=== PATIENT | female | born 1930 | race Two or more races ===

== ENCOUNTER 2017-03-05 18:10 | Inpatient (IN) | payer OTHER ==
--- NOTE | 2017-03-05 18:45 | PDOC ---
History of Present Illness - General Chief Complaint: Altered Mental Status Stated Complaint: UNRESPONSIVE Time Seen by Provider: 03/05/17 18:26 History Source: [facility] Records Exam Limitations: Dementia - History of Present Illness Initial Comments: 03/05/17 18:46 Patient is an 86F with history of Alzheimer's, seizures, TIA, unspecified psychosis, ischemic heart disease, and blepharitis here today complaining of being found unresponsive. Pulse was 58, satting 100%, temp 96.5, glucose 187. Patient is unable to give history. Unsure of baseline. Patient fights putting on blood pressure cuff and refuses to open eyes. Generally uncooperative. Past History - Past Medical History Allergies/Adverse Reactions: Allergies Allergy/AdvReac Type Severity Reaction Status Date / Time No Known Allergies Allergy Verified 03/05/17 18:45 Home Medications: Ambulatory Orders Aa/Hydrolyzed Collagen, Whey [Lps Neutral Flavor Liquid] 30 ml TP TID 03/05/17 Acetaminophen [Tylenol] 650 mg PO QID PRN 03/05/17 Cholecalciferol (Vitamin D3) [Vitamin D3] 1,000 units PO DAILY 03/05/17 Clopidogrel Bisulfate [Plavix] 75 mg PO DAILY 03/05/17 Docusate Sodium [Colace] 200 mg PO HS 03/05/17 Donepezil HCl [Aricept] 10 mg PO HS 03/05/17 Levetiracetam [Keppra Xr -] 500 mg PO BID 03/05/17 Menthol/Zinc Oxide [Calmoseptine Ointment Packet] 1 pack TP TID PRN 03/05/17 Multivitamins [Multivit ([facility] Formulary)] 1 tab PO DAILY 03/05/17 Quetiapine Fumarate [Seroquel -] 12.5 mg PO BID 03/05/17 Review of Systems - Review of Systems Able to Perform ROS?: No (2/2 dementia) *Physical Exam - Physical Exam Comments: 03/05/17 18:54 GENERAL: Awake, alert, uncooperative HEAD: No signs of trauma, normocephalic, atraumatic EYES: PERRLA, EOMI, sclera anicteric, ointment applied to eyes ENT: Auricles normal inspection, hearing grossly normal, nares patent, oropharynx clear without exudates. Chapped lips. Moist mucosa LUNGS: No distress, speaks full sentences, clear to auscultation bilaterally HEART: Regular rate and rhythm, normal S1 and S2, no murmurs, rubs or gallops, peripheral pulses normal and equal bilaterally. ABDOMEN: Soft, nontender, normoactive bowel sounds. No guarding, no rebound. No masses EXTREMITIES: Normal inspection, Normal range of motion, no edema. No clubbing or cyanosis. BACK: Well healed ulcers on sacrum. NEUROLOGICAL: Cranial nerves II through XII grossly intact. Moving all extremities. SKIN: Warm, Dry, normal turgor, no rashes or lesions noted. ED Treatment Course - LABORATORY CBC & Chemistry Diagram: 03/05/17 20:05 03/05/17 20:05 - RADIOLOGY Radiology Studies Ordered: Category Date Time Status HEAD CT WITHOUT CONTRAST [CT] Stat CT Scan 03/05/17 18:38 Ordered CHEST X-RAY PORTABLE* [RAD] Stat Radiology 03/05/17 18:37 Ordered Medical Decision Making - Medical Decision Making 03/05/17 18:56 Patient is an 86F with history of Alzheimer's, seizures, TIA, unspecified psychosis, ischemic heart disease, and blepharitis here today with altered mental status. Vital signs stable and normal, rectal temp normal. DDx is broad, and includes: pneumonia, uti, psychiatric disorders, dehydration, delirium. Will treat with 1L fluids. Will evaluate with cbc, cmp, trop, cxr, ekg, ct head , ua, uc. 03/05/17 20:54 Laboratory Tests 03/05/17 03/05/17 03/05/17 19:21 20:05 20:05 WBC 5.7 Hgb 12.7 Hct 38.9 Neutrophils % 80.1 BUN 17 Creatinine 0.8 Urine WBC (Auto) 154 UA positive for UTI. Kidney function normal. CBC normal. CMP normal. CXR shows no acute cardiopulmonary process. Will treat with ceftriaxone and admit. 03/05/17 21:11 CT head shows 4.4x4x3.7cm left frontoparietal convexity with bone erosion concerning for metastatic disease vs meningioma. Also shows 1cm nonexpansile nonspecific focus. 03/05/17 21:27 EKG shows sinus bradycardia, rate 58. No ST elevation/depression. Normal intervals. No t-wave abnormalities. 03/05/17 22:59 [employer] Emily accepted admission. Will admit to Med/surg under Jimmy *DC/Admit/Observation/Transfer Diagnosis at time of Disposition: UTI (urinary tract infection), Brain mass - Discharge Dispostion Condition at time of disposition: Stable Admit: Yes - Referrals - Patient Instructions - Post Discharge Activity
[2017-03-05 18:48] VITALS: BMI 22.1
--- NOTE | 2017-03-05 19:37 | PDOC ---
Attending Attestation - Resident Resident Name: Adithya Gracia - ED Attending Attestation I have performed the following: I have examined & evaluated the patient, The case was reviewed & discussed with the resident, I agree w/resident's findings & plan, Exceptions are as noted - HPI HPI: 03/05/17 19:24 86 yo female [facility] being "[facility]" Pt is alert, moving all extremities, stable VS Thin ,frail appearing female who is refusing to open her eyes to command . When you go to try to open her eyes she squeezes them shut neck no bruits lungs no crackles,no wheezing cvr [id number] abd flat,nontender extremities - cool legs skin no vesicles - Physicial Exam PE: 03/06/17 00:00 please see above - Medical Decision Making 03/06/17 00:00 ct scan revealed an aggressive meningioma vs mets. Pt has no known h/o cancer according to [facility] notes and family pt found to have UTI and admitted to hospitalist
[2017-03-05 19:38] LABS: URINE APPEARANCE CLOUDY; URINE BILIRUBIN NEGATIVE (NEGATIVE); URINE BLOOD NEGATIVE (NEGATIVE); URINE COLOR YELLOW; URINE GLUCOSE (UA) NEGATIVE (NEGATIVE); URINE KETONE NEGATIVE (NEGATIVE); URINE LEUK ESTERASE 3+ (NEGATIVE); URINE NITRITE NEGATIVE (NEGATIVE); URINE PROTEIN 1+ (NEGATIVE)
[2017-03-05 19:58] LABS: EPI CELLS RARE /HPF (FEW); GRANULAR CASTS 42 /lpf; URINE BACTERIA RARE /hpf (NONE SEEN); URINE MUCUS RARE
[2017-03-05 20:21] LABS: EOS % 0.4 % (0-4.5); HEMATOCRIT 38.9 % (32.4-45.2); HEMOGLOBIN 12.7 GM/dL (10.7-15.3); LYMPH % 11.6 % (8-40); MCH 32.6 pg (25.7-33.7); MCHC 32.6 g/dl (32.0-36.0); MEAN CELL VOLUME 100.2 fl (80-96); MEAN PLT VOLUME 7.9 fl (7.5-11.1); MONO % 6.9 % (3.8-10.2); NEUT % 80.1 % (42.8-82.8); PLATELET COUNT 304 K/MM3 (134-434); RBC 3.89 M/mm3 (3.60-5.2); RDW 12.8 % (11.6-15.6); WHITE BLOOD COUNT 5.7 K/mm3 (4.0-10.0)
[2017-03-05 20:42] LABS: ALBUMIN 2.4 g/dl (3.4-5.0); ANION GAP 7 (8-16); BILIRUBIN,TOTAL 0.3 mg/dL (0.2-1.0); BLOOD UREA NITROGEN 17 mg/dL (7-18); CALCIUM 9.3 mg/dL (8.5-10.1); CHLORIDE 105 mmol/L (98-107); CO2 30 mmol/L (21-32); CREATININE 0.8 mg/dL (0.55-1.02); GLUCOSE,RANDOM 156 mg/dL (74-106); POTASSIUM 4.6 mmol/L (3.5-5.1); SGOT/AST 12 U/L (15-37); SGPT/ALT 12 U/L (12-78); SODIUM 142 mmol/L (136-145); TOT PROT 7.6 g/dl (6.4-8.2)
[2017-03-05 20:44] LABS: ALK PHOS 153 U/L (45-117)
[2017-03-05 21:09] LABS: INR 1.22 (0.82-1.09); PROTHROMBIN TIME (PATIENT) 13.8 SEC (9.98-11.88)
[2017-03-05] MEDS ORDERED: CEFTRIAXONE 1 GM in DEXTROSE 5%-WATER - 50 ML IVPB ONE (21:28)
[2017-03-05] MEDS ORDERED: CEFTRIAXONE 1 GM/50 ML BAG ONE (21:44)
--- NOTE | 2017-03-06 02:30 | HP ---
CHIEF COMPLAINT: AMS PCP: Jim MCCULLOUGH HISTORY OF PRESENT ILLNESS: This is an 86 year old female with a past medical history of alzheimer's Dementia with psychosis, TIA, ischemic heart disease who was sent from the [facility] with AMS/unresponsive. As per ED resident, family describes a baseline mental status similar to what she is currently presenting at. Family not present at time of exam and information obtained from chart review as pt is currently nonverbal. ER course was notable for: (1) U/A c/w UTI (2) WBC 5.7 (3) CT head significant for 4. 4 x 4 x 3.7 cm left frontoparietal mass with erosion of parietal bone Recent Travel: unknown, but doubtful as pt is [facility] resident PAST MEDICAL HISTORY: Alzheimer's dementia with psychosis TIA ischemic heart disease blepharitis PAST SURGICAL HISTORY: unk Social History: Smoking: unk Alcohol:unk Drugs: unk Family History: unk Allergies No Known Allergies Allergy (Verified 03/05/17 18:45) HOME MEDICATIONS: 3 Medication Instructions Recorded Aa/Hydrolyzed Collagen, Whey [Lps 30 ml TP TID 03/05/17 Neutral Flavor Liquid] Acetaminophen [Tylenol] 650 mg PO QID PRN 03/05/17 Cholecalciferol (Vitamin D3) 1,000 units PO DAILY 03/05/17 [Vitamin D3] Clopidogrel Bisulfate [Plavix] 75 mg PO DAILY 03/05/17 Docusate Sodium [Colace] 200 mg PO HS 03/05/17 Donepezil HCl [Aricept] 10 mg PO HS 03/05/17 Levetiracetam [Keppra Xr -] 500 mg PO BID 03/05/17 Menthol/Zinc Oxide [Calmoseptine 1 pack TP TID PRN 03/05/17 Ointment Packet] Multivitamins [Multivit ([facility] 1 tab PO DAILY 03/05/17 Formulary)] Quetiapine Fumarate [Seroquel -] 12.5 mg PO BID 03/05/17 REVIEW OF SYSTEMS CONSTITUTIONAL: Absent: fever, chills, diaphoresis, generalized weakness, malaise, loss of appetite, weight change HEENT: Absent: rhinorrhea, nasal congestion, throat pain, throat swelling, difficulty swallowing, mouth swelling, ear pain, eye pain, visual changes CARDIOVASCULAR: Absent: chest pain, syncope, palpitations, irregular heart rate, lightheadedness , peripheral edema RESPIRATORY: Absent: cough, shortness of breath, dyspnea with exertion, orthopnea, wheezing, stridor, hemoptysis GASTROINTESTINAL: Absent: abdominal pain, abdominal distension, nausea, vomiting, diarrhea, constipation, melena, hematochezia GENITOURINARY: Absent: dysuria, frequency, urgency, hesitancy, hematuria, flank pain, genital pain MUSCULOSKELETAL: Absent: myalgia, arthralgia, joint swelling, back pain, neck pain SKIN: Absent: rash, itching, pallor HEMATOLOGIC/IMMUNOLOGIC: Absent: easy bleeding, easy bruising, lymphadenopathy, frequent infections ENDOCRINE: Absent: unexplained weight gain, unexplained weight loss, heat intolerance, cold intolerance NEUROLOGIC: Present: mental status changes Absent: headache, focal weakness or paresthesias, dizziness, unsteady gait, seizure, bladder or bowel incontinence PSYCHIATRIC: Absent: anxiety, depression, suicidal or homicidal ideation, hallucinations. PHYSICAL EXAMINATION Vital Signs - 24 hr 3 03/05/17 03/05/17 03/05/17 03/05/17 18:31 21:07 22:18 23:00 Temperature 98.3 F 97.8 F Pulse Rate 74 72 Pulse Rate [ 68 62 Apical] Respiratory 17 20 22 20 Rate Blood Pressure 106/56 106/58 Blood Pressure 135/56 118/75 [Right Arm] O2 Sat by Pulse 95 96 100 Oximetry (%) GENERAL: Awake, alert, and disoriented, in no acute distress. Nonverbal. follows with her eyes HEAD: Normal with no signs of trauma. EYES: Pupils equal, round and reactive to light, extraocular movements intact, sclera anicteric, conjunctiva clear. No lid lag. EARS, NOSE, THROAT: Ears normal, nares patent, oropharynx clear without exudates. Moist mucous membranes. NECK: Normal range of motion, supple without lymphadenopathy, JVD, or masses. LUNGS: Breath sounds equal, clear to auscultation bilaterally. No wheezes, and no crackles. No accessory muscle use. HEART: Regular rate and rhythm, normal S1 and S2 without murmur, rub or gallop. ABDOMEN: Soft, nontender, not distended, normoactive bowel sounds, no guarding, no rebound, no masses. No hepatomegaly or splenomegaly. MUSCULOSKELETAL: Normal range of motion at all joints. No bony deformities or tenderness. No CVA tenderness. UPPER EXTREMITIES: 2+ pulses, warm, well-perfused. No cyanosis. No clubbing. No peripheral edema. LOWER EXTREMITIES: 2+ pulses, warm, well-perfused. No calf tenderness. No peripheral edema. NEUROLOGICAL: Cranial nerves II-XII intact. Normal speech. Normal gait. PSYCHIATRIC: Cooperative. Good eye contact. Appropriate mood and affect. SKIN: Warm, dry, normal turgor, no rashes or lesions noted, normal capillary refill. Laboratory Results - last 24 hr 3 03/05/17 03/05/17 03/05/17 19:21 20:05 20:05 WBC 5.7 RBC 3.89 Hgb 12.7 Hct 38.9 MCV 100.2 H MCH 32.6 MCHC 32.6 RDW 12.8 Plt Count 304 MPV 7.9 Neutrophils % 80.1 Lymphocytes % 11.6 Monocytes % 6.9 Eosinophils % 0.4 Basophils % 1.0 PT with INR 13.80 H INR 1.22 H Sodium Potassium Chloride Carbon Dioxide Anion Gap BUN Creatinine Creat Clearance w eGFR Random Glucose Calcium Total Bilirubin AST ALT Alkaline Phosphatase Creatine Kinase Troponin I Total Protein Albumin Urine Color Yellow Urine Appearance Cloudy Urine pH 6.0 Ur Specific [place] 1.016 Urine Protein 1+ H Urine Glucose (UA) Negative Urine Ketones Negative Urine Blood Negative Urine Nitrite Negative Urine Bilirubin Negative Urine Urobilinogen 2.0 H Ur Leukocyte Esterase 1+ H Urine WBC (Auto) 154 Urine RBC (Auto) 8 Ur Epithelial Cells Rare Urine Bacteria Rare Granular Casts 42 Urine Mucus Rare 3 03/05/17 20:05 WBC RBC Hgb Hct MCV MCH MCHC RDW Plt Count MPV Neutrophils % Lymphocytes % Monocytes % Eosinophils % Basophils % PT with INR INR Sodium 142 Potassium 4.6 Chloride 105 Carbon Dioxide 30 Anion Gap 7 L BUN 17 Creatinine 0.8 Creat Clearance w eGFR > 60 Random Glucose 156 H Calcium 9.3 Total Bilirubin 0.3 AST 12 L ALT 12 Alkaline Phosphatase 153 H Creatine Kinase 34 Troponin I 0.04 Total Protein 7.6 Albumin 2.4 L Urine Color Urine Appearance Urine pH Ur Specific [place] Urine Protein Urine Glucose (UA) Urine Ketones Urine Blood Urine Nitrite Urine Bilirubin Urine Urobilinogen Ur Leukocyte Esterase Urine WBC (Auto) Urine RBC (Auto) Ur Epithelial Cells Urine Bacteria Granular Casts Urine Mucus ECG sinus bradycardia vent rate58, QTC [address]/T wave changes Radiology Reports: CRANIAL CT without contrast Clinical information: neuro / altered mental status / headache The exam consists of contiguous direct transaxial images as well as reformatted sagittal and coronal imaging. Intravenous contrast was not administered. No prior imaging studies are available at this facility for direct comparison. An approximately 4. 4 x 4 x 3.7 cm left frontoparietal convexity moderately hyperdense extra-axial mass lesion is noted. There is associated complete erosion of the inner table and diploic cavity of the left parietal calvarium with partial erosion of the outer table. A small amount of associated subgaleal neoplastic disease is seen extending through the calvarium. The intracranial portion of the lesion demonstrate several small peripheral calcifications. No definite perilesional edema is identified. Mild partial effacement of the trigone and body of the left lateral ventricle is seen. There is minimal contralateral midline displacement. A nonspecific 1 cm low attenuation intradiploic nonexpansile focus is seen within the right parietal convexity. No extra-axial fluid collection is noted. There is no discrete infarct within the limitations of CT. No intracranial hemorrhage is identified. Mild to moderate periventricular microvascular ischemic gliosis is seen. No obstructive hydrocephalus. There is almost complete opacification of the right maxillary and left sphenoid sinuses consistent with chronic sinusitis. Associated right maxillary wall thickening is noted also due to chronic inflammation. There is to moderate right ethmoid and mild left maxillary sinus mucosal thickening is seen consistent with sinusitis which is probably chronic. Correlate clinically in regards to acuity. IMPRESSION: An approximately 4. 4 x 4 x 3.7 cm left frontoparietal dural based mass lesion is identified with associated calvarial erosion as discussed above. 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 A 1 cm nonexpansile nonspecific focus is seen within the right parietal calvarium laterally at the high convexity level. Additional evaluation utilizing whole-body radionuclide bone scan including SPECT may be considered. Alternatively comparison with previous studies may be performed if available from a different facility. Paranasal sinus disease as discussed above. Reported By: Jordan Hudson MD 03/05/172057 CXR with no obvious infiltrates or effusions, final read pending ASSESSMENT/PLAN: 86yF with PMH alzheimer's Dementia with psychosis, TIA, ischemic heart disease who was sent from the [place] with A[place]/unresponsive. Intracranial mass - findings will need to be discussed with family to determine desire for further workup - if family desires workup, would obtain MRI head, CT chest abd and pelvis with IV contrast - neuro consult dementia with psychosis - cont aricept and seroquel ? seizures - cont keppra CAD/TIA - cont plavix DVT PPX - heparin 5000u BID FEN - appears well hydrated, cont po hydration - BMP in am - cont NH recommendation for puree diet with thin liquids Dispo: Pt currently requires inpatient management of her emergent condition. Visit type - Emergency Visit Emergency Visit: Yes ED Registration Date: 03/05/17 Care time: The patient presented to the Emergency Department on the above date and was hospitalized for further evaluation of their emergent condition. - New Patient This patient is new to me today: Yes Date on this admission: 03/06/17 - Critical Care Critical Care patient: No
[2017-03-06] MEDS ORDERED: PATIENT'S OWN MEDICATION (NON-FORMULARY) (Aa/Hydrolyzed Collagen, Whey [Lps Neutral Flavor TP SCH (06:00)
--- NOTE | 2017-03-06 09:09 | EKG ---
Test Reason : Blood Pressure : / mmHG Vent. Rate : 063 BPM Atrial Rate : 063 BPM P-R Int : 142 ms QRS Dur : 072 ms QT Int : 416 ms P-R-T Axes : 074 050 068 degrees QTc Int : 425 ms POOR DATA QUALITY, INTERPRETATION MAY BE ADVERSELY AFFECTED SINUS RHYTHM WITH PREMATURE SUPRAVENTRICULAR COMPLEXES OTHERWISE NORMAL ECG NO PREVIOUS ECGS AVAILABLE Confirmed by MD Natty, Praful ([id number]) on 03/06/2017 9:09:15 AM Referred By: Confirmed By:Praful Luz MD
[2017-03-06] MEDS ORDERED: PT OWN MED DRAWER 7, Y5N ONE (09:43)
[2017-03-06] MEDS: HEPARIN NA (PORCINE) 5,000 UNITS/ML 1ML VIAL SQ SCH ×2 (09:44→22:38)
[2017-03-06] MEDS: CLOPIDOGREL BISULFATE 75 MG TABLET (FP) PO SCH (09:45)
[2017-03-06] MEDS: CHOLECALCIFEROL (VITAMIN D3) 1,000 UNIT TABLET (FP) PO SCH (09:46)
[2017-03-06] MEDS: MULTIVITAMINS (DAILY MVI) TABLET (FP) PO SCH (09:46)
[2017-03-06] MEDS: QUEtiapine FUMARATE 25 MG TABLET (FP) PO SCH ×2 (09:46→22:37)
[2017-03-06] MEDS ORDERED: levETIRAcetam XR 500 MG TAB PO SCH ×2 (10:00→18:09)
--- NOTE | 2017-03-06 12:35 | PN ---
Progress Note, Physician Chief Complaint: Unable to obtain - Current Medication List Current Medications: Active Medications Acetaminophen (Tylenol -) 650 mg PO Q6H PRN PRN Reason: PAIN Cholecalciferol (Vitamin D3 -) 1,000 unit PO DAILY [facility] Last Admin: 03/06/17 09:46 Dose: 1,000 unit Clopidogrel Bisulfate (Plavix -) 75 mg PO DAILY [facility] Last Admin: 03/06/17 09:45 Dose: 75 mg Docusate Sodium (Colace -) 200 mg PO HS [facility] Donepezil HCl (Aricept -) 10 mg PO HS [facility] Heparin Sodium (Porcine) (Heparin -) 5,000 unit SQ BID [facility] Last Admin: 03/06/17 09:44 Dose: 5,000 unit CEFTRIAXONE 1 G/50 ML PREMIX (Ceftriaxone 1 Gm-D5w Bag) 50 mls @ 100 mls/hr IVPB HS [facility] Levetiracetam (Keppra Xr -) 500 mg PO BID [facility] Last Admin: 03/06/17 09:45 Dose: 500 mg Multivitamins/Minerals/Vitamin C (Tab-A-Vit -) 1 tab PO DAILY [facility] Last Admin: 03/06/17 09:46 Dose: 1 tab Quetiapine Fumarate (Seroquel -) 12.5 mg PO BID [facility] Last Admin: 03/06/17 09:46 Dose: 12.5 mg - Objective Vital Signs: Vital Signs Temperature 36.8 C 03/06/17 09:36 Pulse Rate 54 L 03/06/17 09:36 Respiratory Rate 16 03/06/17 09:36 Blood Pressure 125/50 03/06/17 09:36 O2 Sat by Pulse Oximetry (%) 100 03/06/17 00:21 Constitutional: Yes: Well Nourished, No Distress, Other (lethargic) Cardiovascular: Yes: Regular Rate and Rhythm. No: Gallop, Murmur, Rub Respiratory: Yes: Regular, CTA Bilaterally. No: Rales, Rhonchi, Wheezes Gastrointestinal: Yes: Normal Bowel Sounds, Soft. No: Distention, Tenderness Extremities: Yes: WNL Edema: No Labs: CBC, BMP 03/05/17 20:05 03/05/17 20:05 INR, PTT INR 1.22 (0.82-1.09) H 03/05/17 20:05 Problem List - Problems (1) Acute metabolic encephalopathy Assessment/Plan: -patient with AMS -multifactorial, suspect immediate cause is UTI -treat UTI with antibiotics -also found to have brain mass -added dexamethasone and neurology consult -monitor for improvement Code(s): G93.41 - METABOLIC ENCEPHALOPATHY (2) Brain mass Assessment/Plan: -incidentally found on head CT -quite large on CT scan -admitted -will start dexamethasone for possible edema -neurology consult -multiple calls placed to son to discuss goals of care, goes to voicemail -will continue to attempt -conservative measures currently until son contacted Code(s): G93.9 - DISORDER OF BRAIN, UNSPECIFIED (3) UTI (urinary tract infection) Assessment/Plan: -urinalysis positive for UTI -on rocephin -follow up cultures Code(s): N39.0 - URINARY TRACT INFECTION, SITE NOT SPECIFIED (4) Dementia Assessment/Plan: -continue home regimen -clarify baseline with family Code(s): F03.90 - UNSPECIFIED DEMENTIA WITHOUT BEHAVIORAL DISTURBANCE (5) History of seizure Assessment/Plan: -continue keppra -neurology consult, may need increase considering tumor Code(s): Z87.898 - PERSONAL HISTORY OF OTHER SPECIFIED CONDITIONS
[2017-03-06] MEDS: DEXAMETHASONE SOD PHOSPHATE 4 MG/1 ML VIAL IVPUSH SCH ×2 (17:39→21:00)
--- NOTE | 2017-03-06 17:57 | CONSULT ---
Consult - text type - Consultation Consultation Note: Neurology HISTORY OF PRESENT ILLNESS: This is an 86 year old female with a past medical history of alzheimer's Dementia with psychosis, TIA, ischemic heart disease who was sent from the [place] with AMS/unresponsive. CT head completed and was impressive for 4. 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 Patient also admitted for UTI and on Keppra for seizures, 500mg twice daily. No seizure like activity for this admission. Of note, UA found to be positive and patient started on Abx. 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 Unclear how much of this would be due to tumor vs cognitive impairment from dementia. PAST MEDICAL HISTORY: Alzheimer's dementia with psychosis TIA ischemic heart disease blepharitis Allergies No Known Allergies Allergy Active Medications Acetaminophen (Tylenol -) 650 mg PO Q6H PRN PRN Reason: PAIN Cholecalciferol (Vitamin D3 -) 1,000 unit PO DAILY [facility] Last Admin: 03/06/17 09:46 Dose: 1,000 unit Clopidogrel Bisulfate (Plavix -) 75 mg PO DAILY [facility] Last Admin: 03/06/17 09:45 Dose: 75 mg Dexamethasone Sodium Phosphate (Decadron Injection -) 4 mg IVPUSH Q6H-IV [facility] Last Admin: 03/06/17 17:39 Dose: 4 mg Docusate Sodium (Colace -) 200 mg PO HS [facility] Donepezil HCl (Aricept -) 10 mg PO HS [facility] Heparin Sodium (Porcine) (Heparin -) 5,000 unit SQ BID [facility] Last Admin: 03/06/17 09:44 Dose: 5,000 unit CEFTRIAXONE 1 G/50 ML PREMIX (Ceftriaxone 1 Gm-D5w Bag) 50 mls @ 100 mls/hr IVPB HS [facility] Levetiracetam (Keppra Xr -) 500 mg PO BID [facility] Last Admin: 03/06/17 09:45 Dose: 500 mg Multivitamins/Minerals/Vitamin C (Tab-A-Vit -) 1 tab PO DAILY [facility] Last Admin: 03/06/17 09:46 Dose: 1 tab Quetiapine Fumarate (Seroquel -) 12.5 mg PO BID [facility] Last Admin: 03/06/17 09:46 Dose: 12.5 mg REVIEW OF SYSTEMS CONSTITUTIONAL: Absent: fever, chills, diaphoresis, generalized weakness, malaise, loss of appetite, weight change HEENT: Absent: rhinorrhea, nasal congestion, throat pain, throat swelling, difficulty swallowing, mouth swelling, ear pain, eye pain, visual changes CARDIOVASCULAR: Absent: chest pain, syncope, palpitations, irregular heart rate, lightheadedness , peripheral edema RESPIRATORY: Absent: cough, shortness of breath, dyspnea with exertion, orthopnea, wheezing, stridor, hemoptysis GASTROINTESTINAL: Absent: abdominal pain, abdominal distension, nausea, vomiting, diarrhea, constipation, melena, hematochezia GENITOURINARY: Absent: dysuria, frequency, urgency, hesitancy, hematuria, flank pain, genital pain MUSCULOSKELETAL: Absent: myalgia, arthralgia, joint swelling, back pain, neck pain SKIN: Absent: rash, itching, pallor HEMATOLOGIC/IMMUNOLOGIC: Absent: easy bleeding, easy bruising, lymphadenopathy, frequent infections ENDOCRINE: Absent: unexplained weight gain, unexplained weight loss, heat intolerance, cold intolerance NEUROLOGIC: Present: mental status changes Absent: headache, focal weakness or paresthesias, dizziness, unsteady gait, seizure, bladder or bowel incontinence PSYCHIATRIC: Absent: anxiety, depression, suicidal or homicidal ideation, hallucinations. PHYSICAL EXAMINATION Last Vital Signs Temp Pulse Resp BP Pulse Ox 98.3 F 89 20 155/77 100 03/06/17 17:09 03/06/17 17:03/06/17 17:03/06/17 17:03/06/17 00:21 GENERAL: Awake, alert, and disoriented, in no acute distress. follows with her eyes HEAD: Normal with no signs of trauma. EYES: Pupils equal, round and reactive to light, extraocular movements intact, sclera anicteric, conjunctiva clear. No lid lag. EARS, NOSE, THROAT: Ears normal, nares patent, oropharynx clear without exudates. Moist mucous membranes. NECK: Normal range of motion, supple without lymphadenopathy, JVD, or masses. LUNGS: Breath sounds equal, clear to auscultation bilaterally. No wheezes, and no crackles. No accessory muscle use. HEART: Regular rate and rhythm, normal S1 and S2 without murmur, rub or gallop. ABDOMEN: Soft, nontender, not distended, normoactive bowel sounds, no guarding, no rebound, no masses. No hepatomegaly or splenomegaly. MUSCULOSKELETAL: Normal range of motion at all joints. No bony deformities or tenderness. No CVA tenderness. UPPER EXTREMITIES: 2+ pulses, warm, well-perfused. No cyanosis. No clubbing. No peripheral edema. LOWER EXTREMITIES: 2+ pulses, warm, well-perfused. No calf tenderness. No peripheral edema. NEUROLOGICAL: Cranial nerves intact, grossly moving ext, not cooperative in confrontation, sensory intact PSYCHIATRIC: Cooperative. Good eye contact. Appropriate mood and affect. SKIN: Warm, dry, normal turgor, no rashes or lesions noted, normal capillary refill. CBCD WBC 5.7 K/mm3 (4.0-10.0) 03/05/17 20:05 RBC 3.89 M/mm3 (3.60-5.2) 03/05/17 20:05 Hgb 12.7 GM/dL (10.7-15.3) 03/05/17 20:05 Hct 38.9 % (32.4-45.2) 03/05/17 20:05 MCV 100.2 fl (80-96) H 03/05/17 20:05 MCHC 32.6 g/dl (32.0-36.0) 03/05/17 20:05 RDW 12.8 % (11.6-15.6) 03/05/17 20:05 Plt Count 304 K/MM3 (134-434) 03/05/17 20:05 MPV 7.9 fl (7.5-11.1) 03/05/17 20:05 CMP Sodium 142 mmol/L (136-145) 03/05/17 20:05 Potassium 4.6 mmol/L (3.5-5.1) 03/05/17 20:05 Chloride 105 mmol/L (98-107) 03/05/17 20:05 Carbon Dioxide 30 mmol/L (21-32) 03/05/17 20:05 Anion Gap 7 (8-16) L 03/05/17 20:05 BUN 17 mg/dL (7-18) 03/05/17 20:05 Creatinine 0.8 mg/dL (0.55-1.02) 03/05/17 20:05 Creat Clearance w eGFR > 60 (>60) 03/05/17 20:05 Calcium 9.3 mg/dL (8.5-10.1) 03/05/17 20:05 Total Bilirubin 0.3 mg/dL (0.2-1.0) 03/05/17 20:05 AST 12 U/L (15-37) L 03/05/17 20:05 ALT 12 U/L (12-78) 03/05/17 20:05 Alkaline Phosphatase 153 U/L (45-117) H 03/05/17 20:05 Total Protein 7.6 g/dl (6.4-8.2) 03/05/17 20:05 Albumin 2.4 g/dl (3.4-5.0) L 03/05/17 20:05 Radiology Reports: CT head: IMPRESSION: An approximately 4. 4 x 4 x 3.7 cm left frontoparietal dural based mass lesion is identified with associated calvarial erosion as discussed above. 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 A 1 cm nonexpansile nonspecific focus is seen within the right parietal calvarium laterally at the high convexity level. Additional evaluation utilizing whole-body radionuclide bone scan including SPECT may be considered. Alternatively comparison with previous studies may be performed if available from a different facility. Paranasal sinus disease as discussed above. ASSESSMENT/PLAN: 86 year old female with a past medical history of alzheimer's Dementia with psychosis, TIA, ischemic heart disease who was sent from the [place] with AMS/ unresponsive. CT head completed and was impressive for 4. 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 Patient also admitted for UTI and on Keppra for seizures, 500mg twice daily. No seizure like activity for this admission. Depending on goals of care, next step would be to have MRI brain with contrast. However, given age and current level of functionality, unclear that benefit would outweigh risk if surgical intervention were to be considered. Family would need to decide on they would want to pursue possible surgical intervention, will hold off on ordering MRI brain with contrast for now. Will increase Keppra to 750mg twice daily to provide further seizure protection. Agree with Decadron for now. Can continue seroquel and Aricept. Acute mental status deterioration possible more due to UTI which is being treated with Ceftriaxone.
[2017-03-06] MEDS: DONEPEZIL HCL 10 MG TABLET (FP) PO SCH (22:37)
[2017-03-06] MEDS: CEFTRIAXONE 1 G/50 ML PREMIX 50 ML IVPB SCH (22:39)
[2017-03-06] MEDS: DOCUSATE SODIUM 100 MG CAPSULE (FP) PO SCH (22:39)
[2017-03-07] MEDS: DEXAMETHASONE SOD PHOSPHATE 4 MG/1 ML VIAL IVPUSH SCH ×4 (02:51→21:38)
[2017-03-07 07:46] LABS: BASO % 0.3 % (0-2.0); HEMOGLOBIN 11.6 GM/dL (10.7-15.3); LYMPH % 13.8 % (8-40); MCH 32.1 pg (25.7-33.7); MCHC 32.1 g/dl (32.0-36.0); MEAN CELL VOLUME 99.9 fl (80-96); MONO % 0.7 % (3.8-10.2); NEUT % 85.2 % (42.8-82.8); PLATELET COUNT 244 K/MM3 (134-434); RDW 12.6 % (11.6-15.6); WHITE BLOOD COUNT 2.8 K/mm3 (4.0-10.0)
[2017-03-07 08:05] LABS: ANION GAP 6 (8-16); BLOOD UREA NITROGEN 15 mg/dL (7-18); CALCIUM 9.1 mg/dL (8.5-10.1); CHLORIDE 106 mmol/L (98-107); CO2 29 mmol/L (21-32); GLUCOSE,RANDOM 168 mg/dL (74-106); MAGNESIUM 2.1 mg/dL (1.8-2.4); POTASSIUM 4.3 mmol/L (3.5-5.1); SODIUM 141 mmol/L (136-145)
[2017-03-07 08:06] LABS: CREATININE 0.5 mg/dL (0.55-1.02); PHOSPHOROUS 3.4 mg/dL (2.5-4.9)
[2017-03-07] MEDS ORDERED: PT OWN MED DRAWER 7, Y5N ONE (09:25)
[2017-03-07] MEDS: QUEtiapine FUMARATE 25 MG TABLET (FP) PO SCH ×2 (09:26→21:39)
[2017-03-07] MEDS: HEPARIN NA (PORCINE) 5,000 UNITS/ML 1ML VIAL SQ SCH ×2 (09:26→21:40)
[2017-03-07] MEDS: CHOLECALCIFEROL (VITAMIN D3) 1,000 UNIT TABLET (FP) PO SCH (09:26)
[2017-03-07] MEDS: CLOPIDOGREL BISULFATE 75 MG TABLET (FP) PO SCH (09:26)
[2017-03-07] MEDS: MULTIVITAMINS (DAILY MVI) TABLET (FP) PO SCH (09:26)
--- NOTE | 2017-03-07 09:37 | PN ---
Progress Note (short form) - Note Progress Note: Neurology HISTORY OF PRESENT ILLNESS: This is an 86 year old female with a past medical history of alzheimer's Dementia with psychosis, TIA, ischemic heart disease who was sent from the [place] with AMS/unresponsive. CT head completed and was impressive for 4. 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 Patient also admitted for UTI and on Keppra for seizures, 500mg twice daily. No seizure like activity for this admission. Of note, UA found to be positive and patient started on Abx. If meningioma, would not likely cause acute mental status change but likely can play a role over correction deterioration especially due to size. Unclear how much of this would be due to tumor vs cognitive impairment from dementia. No family at bedside this AM. Remains stable overnight. No new neurologic events. Being fed at bedside by aide. Active Medications Acetaminophen (Tylenol -) 650 mg PO Q6H PRN PRN Reason: PAIN Cholecalciferol (Vitamin D3 -) 1,000 unit PO DAILY [facility] Last Admin: 03/07/17 09:26 Dose: 1,000 unit Clopidogrel Bisulfate (Plavix -) 75 mg PO DAILY [facility] Last Admin: 03/07/17 09:26 Dose: 75 mg Dexamethasone Sodium Phosphate (Decadron Injection -) 4 mg IVPUSH Q6H-IV [facility] Last Admin: 03/07/17 09:26 Dose: 4 mg Docusate Sodium (Colace -) 200 mg PO HS [facility] Last Admin: 03/06/17 22:39 Dose: 200 mg Donepezil HCl (Aricept -) 10 mg PO HS [facility] Last Admin: 03/06/17 22:37 Dose: 10 mg Heparin Sodium (Porcine) (Heparin -) 5,000 unit SQ BID [facility] Last Admin: 03/07/17 09:26 Dose: 5,000 unit CEFTRIAXONE 1 G/50 ML PREMIX (Ceftriaxone 1 Gm-D5w Bag) 50 mls @ 100 mls/hr IVPB [facility] Last Admin: 03/06/17 22:39 Dose: 100 mls/hr Levetiracetam (Keppra Xr -) 750 mg PO BID [facility] Last Admin: 03/07/17 09:26 Dose: 750 mg Multivitamins/Minerals/Vitamin C (Tab-A-Vit -) 1 tab PO DAILY [facility] Last Admin: 03/07/17 09:26 Dose: 1 tab Quetiapine Fumarate (Seroquel -) 12.5 mg PO BID [facility] Last Admin: 03/07/17 09:26 Dose: 12.5 mg PHYSICAL EXAMINATION Vital Signs Period Temp Pulse Resp BP Sys/Tomlinson Pulse Ox Last 24 Hr 97.5 F-98.9 F 55-89 18-20 144-157/58-78 100 GENERAL: Awake, alert, and disoriented, in no acute distress. follows with her eyes HEAD: Normal with no signs of trauma. EYES: Pupils equal, round and reactive to light, extraocular movements intact, sclera anicteric, conjunctiva clear. No lid lag. EARS, NOSE, THROAT: Ears normal, nares patent, oropharynx clear without exudates. Moist mucous membranes. NECK: Normal range of motion, supple without lymphadenopathy, JVD, or masses. LUNGS: Breath sounds equal, clear to auscultation bilaterally. No wheezes, and no crackles. No accessory muscle use. HEART: Regular rate and rhythm, normal S1 and S2 without murmur, rub or gallop. ABDOMEN: Soft, nontender, not distended, normoactive bowel sounds, no guarding, no rebound, no masses. No hepatomegaly or splenomegaly. MUSCULOSKELETAL: Normal range of motion at all joints. No bony deformities or tenderness. No CVA tenderness. UPPER EXTREMITIES: 2+ pulses, warm, well-perfused. No cyanosis. No clubbing. No peripheral edema. LOWER EXTREMITIES: 2+ pulses, warm, well-perfused. No calf tenderness. No peripheral edema. NEUROLOGICAL: Cranial nerves intact, grossly moving ext, not cooperative in confrontation, sensory intact PSYCHIATRIC: Cooperative. Good eye contact. Appropriate mood and affect. SKIN: Warm, dry, normal turgor, no rashes or lesions noted, normal capillary refill. CBCD WBC 2.8 K/mm3 (4.0-10.0) L D 03/07/17 06:00 RBC 3.60 M/mm3 (3.60-5.2) 03/07/17 06:00 Hgb 11.6 GM/dL (10.7-15.3) 03/07/17 06:00 Hct 36.0 % (32.4-45.2) 03/07/17 06:00 MCV 99.9 fl (80-96) H 03/07/17 06:00 MCHC 32.1 g/dl (32.0-36.0) 03/07/17 06:00 RDW 12.6 % (11.6-15.6) 03/07/17 06:00 Plt Count 244 K/MM3 (134-434) 03/07/17 06:00 MPV 8.0 fl (7.5-11.1) 03/07/17 06:00 CMP Sodium 141 mmol/L (136-145) 03/07/17 06:00 Potassium 4.3 mmol/L (3.5-5.1) 03/07/17 06:00 Chloride 106 mmol/L (98-107) 03/07/17 06:00 Carbon Dioxide 29 mmol/L (21-32) 03/07/17 06:00 Anion Gap 6 (8-16) L 03/07/17 06:00 BUN 15 mg/dL (7-18) 03/07/17 06:00 Creatinine 0.5 mg/dL (0.55-1.02) L D 03/07/17 06:00 Creat Clearance w eGFR > 60 (>60) 03/05/17 20:05 Calcium 9.1 mg/dL (8.5-10.1) 03/07/17 06:00 Total Bilirubin 0.3 mg/dL (0.2-1.0) 03/05/17 20:05 AST 12 U/L (15-37) L 03/05/17 20:05 ALT 12 U/L (12-78) 03/05/17 20:05 Alkaline Phosphatase 153 U/L (45-117) H 03/05/17 20:05 Total Protein 7.6 g/dl (6.4-8.2) 03/05/17 20:05 Albumin 2.4 g/dl (3.4-5.0) L 03/05/17 20:05 Radiology Reports: CT head: IMPRESSION: An approximately 4. 4 x 4 x 3.7 cm left frontoparietal dural based mass lesion is identified with associated calvarial erosion as discussed above. 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 A 1 cm nonexpansile nonspecific focus is seen within the right parietal calvarium laterally at the high convexity level. Additional evaluation utilizing whole-body radionuclide bone scan including SPECT may be considered. Alternatively comparison with previous studies may be performed if available from a different facility. Paranasal sinus disease as discussed above. ASSESSMENT/PLAN: 86 year old female with a past medical history of alzheimer's Dementia with psychosis, TIA, ischemic heart disease who was sent from the [place] with AMS/ unresponsive. CT head completed and was impressive for 4. 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 Patient also admitted for UTI No seizure like activity for this admission. Depending on goals of care, next step would be to have MRI brain with contrast. However, given age and current level of functionality, unclear that benefit would outweigh risk if surgical intervention were to be considered. Family would need to decide on they would want to pursue possible surgical intervention Increased Keppra to 750mg twice daily to provide further seizure protection. Will switch to IV as patient requiring crushing of medication and medication XR. Agree with Decadron for now. Can continue seroquel and Aricept. Acute mental status deterioration possible more due to UTI which is being treated with Ceftriaxone.
[2017-03-07] MEDS: levETIRAcetam 500 MG/5 ML INJECTION VIAL IVPB SCH ×2 (09:40→21:39)
[2017-03-07] MEDS ORDERED: levETIRAcetam XR 750 MG TAB PO SCH (10:00)
--- NOTE | 2017-03-07 13:23 | PN ---
Progress Note (short form) - Note Progress Note: Patient seen and examined Chart reviewed. Currently poorly responsive and lethargic(?stuporous) sitting up in bed. Labs and progress notes reviewed. Family to discuss extent of ongoing therapeutic intervention Selected Entries 03/06/17 03/07/17 21:00 10:00 Temperature 97.7 F Pulse Rate 73 Respiratory 18 Rate Blood Pressure 142/64 O2 Sat by Pulse 100 Oximetry (%) Oxygen Delivery Room Air Method Laboratory Tests 03/05/17 03/05/17 03/07/17 19:21 20:05 06:00 WBC 2.8 L D Hgb 11.6 Hct 36.0 Plt Count 244 Sodium Potassium Chloride Carbon Dioxide BUN Creatinine Random Glucose Calcium Phosphorus Magnesium Total Bilirubin 0.3 AST 12 L ALT 12 Alkaline Phosphatase 153 H Creatine Kinase 34 Troponin I 0.04 Total Protein 7.6 Albumin 2.4 L Urine Color Yellow Urine Appearance Cloudy Urine pH 6.0 Ur Specific Hinkle 1.016 Urine Protein 1+ H Urine Glucose (UA) Negative Urine Ketones Negative Urine Blood Negative Urine Nitrite Negative Urine Bilirubin Negative Urine Urobilinogen 2.0 H Ur Leukocyte Esterase 1+ H Urine WBC (Auto) 154 Urine RBC (Auto) 8 Ur Epithelial Cells Rare Urine Bacteria Rare Granular Casts 42 Urine Mucus Rare 03/07/17 06:00 WBC Hgb Hct Plt Count Sodium 141 Potassium 4.3 Chloride 106 Carbon Dioxide 29 BUN 15 Creatinine 0.5 L D Random Glucose 168 H Calcium 9.1 Phosphorus 3.4 Magnesium 2.1 Total Bilirubin AST ALT Alkaline Phosphatase Creatine Kinase Troponin I Total Protein Albumin Urine Color Urine Appearance Urine pH Ur Specific Hinkle Urine Protein Urine Glucose (UA) Urine Ketones Urine Blood Urine Nitrite Urine Bilirubin Urine Urobilinogen Ur Leukocyte Esterase Urine WBC (Auto) Urine RBC (Auto) Ur Epithelial Cells Urine Bacteria Granular Casts Urine Mucus Chest Clear No upper airway congestion Cor RRR Abd Soft non-tender Mildly distended Ext No edema No phlebitis Neuro Poorly responsive No new focal deficit Assessment and Plan Brain Mass Work-up to be determined Neuro notes appreciated Seizure history On Rx Leukopenia Monitor UTI LF GNR on Rx Hypoalbuminemia 2.4 Dementia with Psychosis On Rx H/O TIA IGT [id number] Continue current Rx Further testing and therapy as per family decisions
[2017-03-07] MEDS: DONEPEZIL HCL 10 MG TABLET (FP) PO SCH (21:38)
[2017-03-07] MEDS: DOCUSATE SODIUM 100 MG CAPSULE (FP) PO SCH (21:39)
[2017-03-07] MEDS: CEFTRIAXONE 1 G/50 ML PREMIX 50 ML IVPB SCH (21:40)
[2017-03-08] MEDS: DEXAMETHASONE SOD PHOSPHATE 4 MG/1 ML VIAL IVPUSH SCH ×4 (03:04→21:00)
[2017-03-08 08:26] LABS: BASO % 0.1 % (0-2.0); HEMOGLOBIN 11.3 GM/dL (10.7-15.3); MCH 32.1 pg (25.7-33.7); MCHC 32.2 g/dl (32.0-36.0); MEAN CELL VOLUME 99.8 fl (80-96); MEAN PLT VOLUME 8.4 fl (7.5-11.1); MONO % 1.5 % (3.8-10.2); NEUT % 89.4 % (42.8-82.8); PLATELET COUNT 243 K/MM3 (134-434); RDW 12.8 % (11.6-15.6); WHITE BLOOD COUNT 4.5 K/mm3 (4.0-10.0)
[2017-03-08 09:02] LABS: CHLORIDE 106 mmol/L (98-107); POTASSIUM 4.2 mmol/L (3.5-5.1); SODIUM 143 mmol/L (136-145)
[2017-03-08 09:32] LABS: ALBUMIN 2.5 g/dl (3.4-5.0); ALK PHOS 131 U/L (45-117); ANION GAP 10 (8-16); BILIRUBIN,TOTAL 0.3 mg/dL (0.2-1.0); BLOOD UREA NITROGEN 17 mg/dL (7-18); CALCIUM 9.3 mg/dL (8.5-10.1); CO2 27 mmol/L (21-32); CREATININE 0.5 mg/dL (0.55-1.02); GLUCOSE,RANDOM 147 mg/dL (74-106); SGOT/AST 12 U/L (15-37); SGPT/ALT 10 U/L (12-78); TOT PROT 7.1 g/dl (6.4-8.2)
[2017-03-08] MEDS: levETIRAcetam 500 MG/5 ML INJECTION VIAL IVPB SCH (09:36)
--- NOTE | 2017-03-08 09:53 | PN ---
Progress Note (short form) - Note Progress Note: Neurology HISTORY OF PRESENT ILLNESS: This is an 86 year old female with a past medical history of alzheimer's Dementia with psychosis, TIA, ischemic heart disease who was sent from the [place] with AMS/unresponsive. CT head completed and was impressive for 4. 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 Patient also admitted for UTI and on Keppra for seizures, 500mg twice daily. No seizure like activity for this admission. Of note, UA found to be positive and patient started on Abx. If meningioma, would not likely cause acute mental status change but likely can play a role over group home deterioration especially due to size. Unclear how much of this would be due to tumor vs cognitive impairment from dementia. No family at bedside this AM. Remains stable overnight. No new neurologic events. Being fed at bedside by aide. Is more awake and alert and interactive. This may be due to improvement from infection or possible from decadron but seems to be closer to her baseline mental status. Active Medications Acetaminophen (Tylenol -) 650 mg PO Q6H PRN PRN Reason: PAIN Cholecalciferol (Vitamin D3 -) 1,000 unit PO DAILY [facility] Last Admin: 03/07/17 09:26 Dose: 1,000 unit Clopidogrel Bisulfate (Plavix -) 75 mg PO DAILY [facility] Last Admin: 03/07/17 09:26 Dose: 75 mg Dexamethasone Sodium Phosphate (Decadron Injection -) 4 mg IVPUSH Q6H-IV [facility] Last Admin: 03/08/17 03:04 Dose: 4 mg Docusate Sodium (Colace -) 200 mg PO HS [facility] Last Admin: 03/07/17 21:39 Dose: 200 mg Donepezil HCl (Aricept -) 10 mg PO HS [facility] Last Admin: 03/07/17 21:38 Dose: 10 mg Heparin Sodium (Porcine) (Heparin -) 5,000 unit SQ BID [facility] Last Admin: 03/07/17 21:40 Dose: 5,000 unit CEFTRIAXONE 1 G/50 ML PREMIX (Ceftriaxone 1 Gm-D5w Bag) 50 mls @ 100 mls/hr IVPB HS [facility] Last Admin: 03/07/17 21:40 Dose: 100 mls/hr Levetiracetam (Keppra Oral Solution -) 750 mg PO BID [facility] Multivitamins/Minerals/Vitamin C (Tab-A-Vit -) 1 tab PO DAILY [facility] Last Admin: 03/07/17 09:26 Dose: 1 tab Quetiapine Fumarate (Seroquel -) 12.5 mg PO BID [facility] Last Admin: 03/07/17 21:39 Dose: 12.5 mg PHYSICAL EXAMINATION Vital Signs Temperature 97.5 F L 03/08/17 07:30 Pulse Rate 51 L 03/08/17 07:30 Respiratory Rate 18 03/08/17 07:30 Blood Pressure 138/31 03/08/17 07:30 O2 Sat by Pulse Oximetry (%) 99 03/07/17 21:00 GENERAL: Awake, alert, and disoriented, in no acute distress. follows with her eyes HEAD: Normal with no signs of trauma. EYES: Pupils equal, round and reactive to light, extraocular movements intact, sclera anicteric, conjunctiva clear. No lid lag. EARS, NOSE, THROAT: Ears normal, nares patent, oropharynx clear without exudates. Moist mucous membranes. NECK: Normal range of motion, supple without lymphadenopathy, JVD, or masses. LUNGS: Breath sounds equal, clear to auscultation bilaterally. No wheezes, and no crackles. No accessory muscle use. HEART: Regular rate and rhythm, normal S1 and S2 without murmur, rub or gallop. ABDOMEN: Soft, nontender, not distended, normoactive bowel sounds, no guarding, no rebound, no masses. No hepatomegaly or splenomegaly. MUSCULOSKELETAL: Normal range of motion at all joints. No bony deformities or tenderness. No CVA tenderness. UPPER EXTREMITIES: 2+ pulses, warm, well-perfused. No cyanosis. No clubbing. No peripheral edema. LOWER EXTREMITIES: 2+ pulses, warm, well-perfused. No calf tenderness. No peripheral edema. NEUROLOGICAL: Cranial nerves intact, grossly moving ext, not cooperative on confrontation, sensory intact PSYCHIATRIC: Cooperative. Good eye contact. Appropriate mood and affect. SKIN: Warm, dry, normal turgor, no rashes or lesions noted, normal capillary refill. CBCD WBC 4.5 K/mm3 (4.0-10.0) D 03/08/17 06:00 RBC 3.50 M/mm3 (3.60-5.2) L 03/08/17 06:00 Hgb 11.3 GM/dL (10.7-15.3) 03/08/17 06:00 Hct 35.0 % (32.4-45.2) 03/08/17 06:00 MCV 99.8 fl (80-96) H 03/08/17 06:00 MCHC 32.2 g/dl (32.0-36.0) 03/08/17 06:00 RDW 12.8 % (11.6-15.6) 03/08/17 06:00 Plt Count 243 K/MM3 (134-434) 03/08/17 06:00 MPV 8.4 fl (7.5-11.1) 03/08/17 06:00 CMP Sodium 141 mmol/L (136-145) 03/07/17 06:00 Potassium 4.3 mmol/L (3.5-5.1) 03/07/17 06:00 Chloride 106 mmol/L (98-107) 03/07/17 06:00 Carbon Dioxide 29 mmol/L (21-32) 03/07/17 06:00 Anion Gap 6 (8-16) L 03/07/17 06:00 BUN 15 mg/dL (7-18) 03/07/17 06:00 Creatinine 0.5 mg/dL (0.55-1.02) L D 03/07/17 06:00 Creat Clearance w eGFR > 60 (>60) 03/05/17 20:05 Calcium 9.1 mg/dL (8.5-10.1) 03/07/17 06:00 Total Bilirubin 0.3 mg/dL (0.2-1.0) 03/05/17 20:05 AST 12 U/L (15-37) L 03/05/17 20:05 ALT 12 U/L (12-78) 03/05/17 20:05 Alkaline Phosphatase 153 U/L (45-117) H 03/05/17 20:05 Total Protein 7.6 g/dl (6.4-8.2) 03/05/17 20:05 Albumin 2.4 g/dl (3.4-5.0) L 03/05/17 20:05 Radiology Reports: CT head: IMPRESSION: An approximately 4. 4 x 4 x 3.7 cm left frontoparietal dural based mass lesion is identified with associated calvarial erosion as discussed above. 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 A 1 cm nonexpansile nonspecific focus is seen within the right parietal calvarium laterally at the high convexity level. Additional evaluation utilizing whole-body radionuclide bone scan including SPECT may be considered. Alternatively comparison with previous studies may be performed if available from a different facility. Paranasal sinus disease as discussed above. ASSESSMENT/PLAN: 86 year old female with a past medical history of alzheimer's Dementia with psychosis, TIA, ischemic heart disease who was sent from the [place] with AMS/ unresponsive. CT head completed and was impressive for 4. 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 Patient also admitted for UTI No seizure like activity for this admission. Depending on goals of care, next step would be to have MRI brain with contrast. However, given age and current level of functionality, unclear that benefit would outweigh risk if surgical intervention were to be considered. Family would need to decide on they would want to pursue possible surgical intervention Increased Keppra to 750mg twice daily to provide further seizure protection. Will switch to liquid as now tolerating PO Agree with Decadron for now. Can continue seroquel and Aricept. Acute mental status deterioration possible more due to UTI which is being treated with Ceftriaxone and improving Depending on family wishes, NSGY consult may be indicated if they would like to pursue further intervention after MRI Otherwise, neurologically stable
[2017-03-08] MEDS: CLOPIDOGREL BISULFATE 75 MG TABLET (FP) PO SCH (09:58)
[2017-03-08] MEDS: QUEtiapine FUMARATE 25 MG TABLET (FP) PO SCH ×2 (09:58→22:05)
[2017-03-08] MEDS: ACETAMINOPHEN 325 MG TABLET (FP) PO PRN (09:58)
[2017-03-08] MEDS: CHOLECALCIFEROL (VITAMIN D3) 1,000 UNIT TABLET (FP) PO SCH (09:58)
[2017-03-08] MEDS: MULTIVITAMINS (DAILY MVI) TABLET (FP) PO SCH (09:58)
[2017-03-08] MEDS: HEPARIN NA (PORCINE) 5,000 UNITS/ML 1ML VIAL SQ SCH ×2 (10:42→22:04)
[2017-03-08] MEDS: levETIRAcetam 500 MG/5 ML ORAL SOLUTION (UNIT-DOSE CUPS) PO SCH ×2 (10:42→22:05)
--- NOTE | 2017-03-08 12:54 | CON.ID ---
Consult Consult Specialty:: infectious diseases Reason for Consultation:: uti,ams - History of Present Illness History of Present Illness: patient unable to give history which is obtained from the charts 86 year old female with a past medical history of alzheimer's Dementia with psychosis, TIA, ischemic heart disease who was sent from the [place] with AMS/ unresponsive. patient was admitted and found to have esbl in urine currently patient unable to give any much history - History Source History Provided By: Medical Record Limitations to Obtaining History: Clinical Condition - Alcohol/Substance Use Hx Alcohol Use: No - Smoking History Smoking history: Never smoked Have you smoked in the past 12 months: No Home Medications - Allergies Allergies/Adverse Reactions: Allergies Allergy/AdvReac Type Severity Reaction Status Date / Time No Known Allergies Allergy Verified 03/05/17 18:45 - Home Medications Home Medications: Ambulatory Orders Aa/Hydrolyzed Collagen, Whey [Lps Neutral Flavor Liquid] 30 ml TP TID 03/05/17 Acetaminophen [Tylenol] 650 mg PO QID PRN 03/05/17 Cholecalciferol (Vitamin D3) [Vitamin D3] 1,000 units PO DAILY 03/05/17 Clopidogrel Bisulfate [Plavix] 75 mg PO DAILY 03/05/17 Docusate Sodium [Colace] 200 mg PO HS 03/05/17 Donepezil HCl [Aricept] 10 mg PO HS 03/05/17 Levetiracetam [Keppra Xr -] 500 mg PO BID 03/05/17 Menthol/Zinc Oxide [Calmoseptine Ointment Packet] 1 pack TP TID PRN 03/05/17 Multivitamins [Multivit ([facility] Formulary)] 1 tab PO DAILY 03/05/17 Quetiapine Fumarate [Seroquel -] 12.5 mg PO BID 03/05/17 Review of Systems Unable to obtain ROS, reason: unable to obtain Physical Exam Vital Signs: Vital Signs Temperature 97.5 F L 03/08/17 07:30 Pulse Rate 51 L 03/08/17 07:30 Respiratory Rate 18 03/08/17 07:30 Blood Pressure 138/31 03/08/17 07:30 O2 Sat by Pulse Oximetry (%) 99 03/07/17 21:00 Constitutional: Yes: Calm, Other Neck: Yes: Supple Cardiovascular: Yes: Regular Rate and Rhythm Respiratory: Yes: Regular, CTA Bilaterally Gastrointestinal: Yes: Normal Bowel Sounds, Soft Musculoskeletal: Yes: Other Extremities: Yes: Other Neurological: Yes: Confusion, Lethargy, Other Labs: CBC, BMP 03/08/17 06:00 03/08/17 06:00 Imaging - Results Chest X-ray: Report Reviewed, Image Reviewed Cat Scan: Report Reviewed, Image Reviewed Assessment/Plan Problem List - Problems (1) Acute metabolic encephalopathy Code(s): G93.41 - METABOLIC ENCEPHALOPATHY (2) Brain mass Code(s): G93.9 - DISORDER OF BRAIN, UNSPECIFIED (3) UTI (urinary tract infection) Code(s): N39.0 - URINARY TRACT INFECTION, SITE NOT SPECIFIED (4) Dementia Code(s): F03.90 - UNSPECIFIED DEMENTIA WITHOUT BEHAVIORAL DISTURBANCE (5) History of seizure Code(s): Z87.898 - PERSONAL HISTORY OF OT plan will start patient on ertapenam hydration neuro on case rest as per primary team
[2017-03-08] MEDS ORDERED: ERTAPENEM SODIUM 1 GM in SODIUM CHLORIDE 50 ML IVPB SCH (13:00)
[2017-03-08] MEDS ORDERED: ERTAPENEM SODIUM 1 GM in SODIUM CHLORIDE 100 ML IVPB SCH (13:09)
--- NOTE | 2017-03-08 15:39 | PN ---
Progress Note, Physician Chief Complaint: Unable to obtain - Current Medication List Current Medications: Active Medications Acetaminophen (Tylenol -) 650 mg PO Q6H PRN PRN Reason: PAIN Last Admin: 03/08/17 09:58 Dose: 650 mg Cholecalciferol (Vitamin D3 -) 1,000 unit PO DAILY [facility] Last Admin: 03/08/17 09:58 Dose: 1,000 unit Clopidogrel Bisulfate (Plavix -) 75 mg PO DAILY [facility] Last Admin: 03/08/17 09:58 Dose: 75 mg Dexamethasone Sodium Phosphate (Decadron Injection -) 4 mg IVPUSH Q6H-IV [facility] Last Admin: 03/08/17 09:58 Dose: 4 mg Docusate Sodium (Colace -) 200 mg PO HS [facility] Last Admin: 03/07/17 21:39 Dose: 200 mg Donepezil HCl (Aricept -) 10 mg PO HS [facility] Last Admin: 03/07/17 21:38 Dose: 10 mg Heparin Sodium (Porcine) (Heparin -) 5,000 unit SQ BID [facility] Last Admin: 03/08/17 10:42 Dose: 5,000 unit Ertapenem 1 gm/ Sodium (Chloride) 100 mls @ 50 mls/hr IVPB DAILY [facility] PRN Reason: Protocol Levetiracetam (Keppra Oral Solution -) 750 mg PO BID [facility] Last Admin: 03/08/17 10:42 Dose: 750 mg Multivitamins/Minerals/Vitamin C (Tab-A-Vit -) 1 tab PO DAILY [facility] Last Admin: 03/08/17 09:58 Dose: 1 tab Quetiapine Fumarate (Seroquel -) 12.5 mg PO BID [facility] Last Admin: 03/08/17 09:58 Dose: 12.5 mg - Objective Vital Signs: Vital Signs Temperature 36.5 C 03/08/17 09:00 Pulse Rate 63 03/08/17 09:00 Respiratory Rate 18 03/08/17 09:00 Blood Pressure 146/59 03/08/17 09:00 O2 Sat by Pulse Oximetry (%) 99 03/08/17 09:00 Constitutional: Yes: Well Nourished, No Distress, Other (lethargic) Cardiovascular: Yes: Regular Rate and Rhythm. No: Gallop, Murmur, Rub Respiratory: Yes: Regular, CTA Bilaterally. No: Rales, Rhonchi, Wheezes Gastrointestinal: Yes: Normal Bowel Sounds, Soft. No: Distention, Tenderness Extremities: Yes: WNL Edema: No Labs: CBC, BMP 03/08/17 06:00 03/08/17 06:00 INR, PTT INR 1.22 (0.82-1.09) H 03/05/17 20:05 Problem List - Problems (1) Acute metabolic encephalopathy Code(s): G93.41 - METABOLIC ENCEPHALOPATHY (2) Brain mass Code(s): G93.9 - DISORDER OF BRAIN, UNSPECIFIED (3) UTI (urinary tract infection) Code(s): N39.0 - URINARY TRACT INFECTION, SITE NOT SPECIFIED (4) Dementia Code(s): F03.90 - UNSPECIFIED DEMENTIA WITHOUT BEHAVIORAL DISTURBANCE (5) History of seizure Code(s): Z87.898 - PERSONAL HISTORY OF OTHER SPECIFIED CONDITIONS Assessment/Plan (1) Acute metabolic encephalopathy Assessment/Plan: -multifactorial -not improved currently -concerning in patient with history of severe dementia and now with UTI and brain mass -continue antibiotics for UTI -monitor for improvement but patient may not be at new baseline Code(s): G93.41 - METABOLIC ENCEPHALOPATHY (2) Brain mass Assessment/Plan: -continue dexamethasone -case d/w neurology -case d/w son -continue conservative management -would not recommend aggressive therapy secondary to patient's clinical condition Code(s): G93.9 - DISORDER OF BRAIN, UNSPECIFIED (3) UTI (urinary tract infection) Assessment/Plan: -now growing ESBL e coli -consult placed to Dr Poole and case discussed -he will see in consultation and adjust antibiotic regimen Code(s): N39.0 - URINARY TRACT INFECTION, SITE NOT SPECIFIED (4) Dementia Assessment/Plan: -patient with severe dementia -son states patient mainly non-verbal and only says his name at best -will monitor, may be new baseline Code(s): F03.90 - UNSPECIFIED DEMENTIA WITHOUT BEHAVIORAL DISTURBANCE (5) History of seizure Assessment/Plan: -case d/w neurology -continue IV keppra Code(s): Z87.898 - PERSONAL HISTORY OF OTHER SPECIFIED CONDITIONS Dispo -discussed with son about clinical condition, code status, and end of life issues -attempted to clarify code status but son somewhat vague -states will think about what his mom's wishes are -also discussed comfort measures, considering severe dementia and brain mass patient would benefit from transition to comfort measures as now has multiple incurable and progressive diagnoses -palliative care aware of patient and will speak with son -son to think of possibility of hospice/comfort measures
[2017-03-08] MEDS ORDERED: PT OWN MED DRAWER 7, Y5N ONE (16:23)
[2017-03-08] MEDS: ERTAPENEM SODIUM 1 GM in SODIUM CHLORIDE 100 ML IVPB SCH (16:42)
[2017-03-08] MEDS: DONEPEZIL HCL 10 MG TABLET (FP) PO SCH (22:04)
[2017-03-08] MEDS: DOCUSATE SODIUM 100 MG CAPSULE (FP) PO SCH (22:04)
[2017-03-09] MEDS: DEXAMETHASONE SOD PHOSPHATE 4 MG/1 ML VIAL IVPUSH SCH ×4 (02:38→22:38)
--- NOTE | 2017-03-09 07:49 | PN ---
Progress Note (short form) - Note Progress Note: no complaints, resting comfortable. says no when asked if she has any pain or anything bothering her able to state name clearly. other questions she mumbles only able to make out a few words. does not follow simple commands Current Medications Generic Name Dose Route Start Last Admin Trade Name Freq PRN Reason Stop Dose Admin Acetaminophen 650 mg 03/06/17 03:42 03/08/17 09:58 Tylenol - PO 650 mg Q6H PRN Administration PAIN Cholecalciferol 1,000 unit 03/06/17 10:00 03/08/17 09:58 Vitamin D3 - PO 1,000 unit DAILY MICHAEL Administration Clopidogrel Bisulfate 75 mg 03/06/17 10:00 03/08/17 09:58 Plavix - PO 75 mg DAILY MICHAEL Administration Dexamethasone Sodium Phosphate 4 mg 03/06/17 15:15 03/09/17 02:38 Decadron Injection - IVPUSH 4 mg Q6H-IV MICHAEL Administration Docusate Sodium 200 mg 03/06/17 22:00 03/08/17 22:04 Colace - PO 200 mg HS MICHAEL Administration Donepezil HCl 10 mg 03/06/17 22:00 03/08/17 22:04 Aricept - PO 10 mg HS MICHAEL Administration Heparin Sodium (Porcine) 5,000 unit 03/06/17 10:00 03/08/17 22:04 Heparin - SQ 5,000 unit BID MICHAEL Administration Ertapenem 1 gm/ Sodium 100 mls @ 200 mls/hr 03/08/17 15:45 03/08/17 16:42 Chloride IVPB 200 mls/hr DAILY MICHAEL Administration Protocol Levetiracetam 750 mg 03/08/17 10:00 03/08/17 22:05 Keppra Oral Solution - PO 750 mg BID MICHAEL Administration Multivitamins/Minerals/Vitamin C 1 tab 03/06/17 10:00 03/08/17 09:58 Tab-A-Vit - PO 1 tab DAILY MICHAEL Administration Quetiapine Fumarate 12.5 mg 03/06/17 10:00 03/08/17 22:05 Seroquel - PO 12.5 mg BID MICHAEL Administration Last Vital Signs Temp Pulse Resp BP Pulse Ox 97.2 F L 50 L 18 149/44 99 03/09/17 06:00 03/09/17 06:00 03/09/17 06:00 03/09/17 06:00 03/08/17 21:00 General NAD A&O x1 (self), bitemporal wasting, prominent clavicles CV S1 S2 RRR Lungs CTA anteriorly Abdomen soft NT/ND Extremities no pedal edema Assesment and PLan 86 year old female with a past medical history of alzheimer's Dementia with psychosis, TIA, seizures and ischemic heart disease who was sent from the [place] with AMS/unresponsive 1. Acute metabolic encephalopathy- more likely to UTI however can not rule out brain mass. mental status improving although not at baseline per notes. hopeful it will slowly improve as infection is treated. neurology on board 2. ESBL Ecoli UTI- on ertapenem day 2. contact precautions. ID on board. 3. Brain mass- incidental finding. 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 on dex 4mg IV Q6H, home keppra dose increased. no further workup at this time.conservative management. 4. Malnutrition- encourage po intake. tolerating puree diet per RN. cont ensure enlive. dietary evaluation 5. hx of seizures- no reported seizure like activity. keppra dose increased this hospital stay due to incidental mass finding 6. alzheimer's Dementia with psychosis- cont aricept/seroquel 7. CAD- no signs of acs. 8. TIA- cont plavix 9. DVT ppx- hep sq 10. poor overall prognosis. pt is currently full code. PCP had converstaion with son regarding goals of care yesterday and awaiting decision. Palliative care on board. Visit type - Emergency Visit Emergency Visit: Yes ED Registration Date: 03/05/17 Care time: The patient presented to the Emergency Department on the above date and was hospitalized for further evaluation of their emergent condition. - New Patient This patient is new to me today: Yes Date on this admission: 03/09/17 - Critical Care Critical Care patient: No - Discharge Referral Referred to [facility] Med P.C.: No
[2017-03-09 08:12] LABS: BASO % 0.1 % (0-2.0); HEMATOCRIT 37.4 % (32.4-45.2); LYMPH % 13.4 % (8-40); MCH 32.1 pg (25.7-33.7); MCHC 31.9 g/dl (32.0-36.0); MEAN CELL VOLUME 100.7 fl (80-96); MEAN PLT VOLUME 8.3 fl (7.5-11.1); MONO % 2.7 % (3.8-10.2); NEUT % 83.8 % (42.8-82.8); PLATELET COUNT 227 K/MM3 (134-434); RBC 3.72 M/mm3 (3.60-5.2); WHITE BLOOD COUNT 4.8 K/mm3 (4.0-10.0)
[2017-03-09] MEDS ORDERED: PT OWN MED DRAWER 7, Y5N ONE (08:44)
[2017-03-09 08:59] LABS: ANION GAP 7 (8-16); BLOOD UREA NITROGEN 17 mg/dL (7-18); CALCIUM 9.2 mg/dL (8.5-10.1); CHLORIDE 106 mmol/L (98-107); CO2 29 mmol/L (21-32); GLUCOSE,RANDOM 144 mg/dL (74-106); MAGNESIUM 2.3 mg/dL (1.8-2.4); POTASSIUM 4.6 mmol/L (3.5-5.1); SODIUM 142 mmol/L (136-145)
[2017-03-09 09:01] LABS: CREATININE 0.5 mg/dL (0.55-1.02); PHOSPHOROUS 3.1 mg/dL (2.5-4.9)
[2017-03-09] MEDS: levETIRAcetam 500 MG/5 ML ORAL SOLUTION (UNIT-DOSE CUPS) PO SCH ×2 (09:04→22:38)
[2017-03-09] MEDS: QUEtiapine FUMARATE 25 MG TABLET (FP) PO SCH ×2 (09:05→22:38)
[2017-03-09] MEDS: CHOLECALCIFEROL (VITAMIN D3) 1,000 UNIT TABLET (FP) PO SCH (09:05)
[2017-03-09] MEDS: MULTIVITAMINS (DAILY MVI) TABLET (FP) PO SCH (09:05)
[2017-03-09] MEDS: CLOPIDOGREL BISULFATE 75 MG TABLET (FP) PO SCH (09:05)
[2017-03-09] MEDS: HEPARIN NA (PORCINE) 5,000 UNITS/ML 1ML VIAL SQ SCH ×2 (09:06→22:38)
[2017-03-09] MEDS: ERTAPENEM SODIUM 1 GM in SODIUM CHLORIDE 100 ML IVPB SCH (10:06)
--- NOTE | 2017-03-09 15:50 | PN ---
Progress Note, Physician History of Present Illness: Infectious Disease f/u: Pt seen and examined. Records/labs reviewed, events noted. Pt is weak but arousable, responsive. Afebrile, without acute distress. - Current Medication List Current Medications: Active Medications Acetaminophen (Tylenol -) 650 mg PO Q6H PRN PRN Reason: PAIN Last Admin: 03/08/17 09:58 Dose: 650 mg Cholecalciferol (Vitamin D3 -) 1,000 unit PO DAILY [facility] Last Admin: 03/09/17 09:05 Dose: 1,000 unit Clopidogrel Bisulfate (Plavix -) 75 mg PO DAILY [facility] Last Admin: 03/09/17 09:05 Dose: 75 mg Dexamethasone Sodium Phosphate (Decadron Injection -) 4 mg IVPUSH Q6H-IV [facility] Last Admin: 03/09/17 14:39 Dose: 4 mg Docusate Sodium (Colace -) 200 mg PO HS [facility] Last Admin: 03/08/17 22:04 Dose: 200 mg Donepezil HCl (Aricept -) 10 mg PO HS [facility] Last Admin: 03/08/17 22:04 Dose: 10 mg Heparin Sodium (Porcine) (Heparin -) 5,000 unit SQ BID [facility] Last Admin: 03/09/17 09:06 Dose: 5,000 unit Ertapenem 1 gm/ Sodium (Chloride) 100 mls @ 200 mls/hr IVPB DAILY [facility] PRN Reason: Protocol Last Admin: 03/09/17 10:06 Dose: 200 mls/hr Levetiracetam (Keppra Oral Solution -) 750 mg PO BID [facility] Last Admin: 03/09/17 09:04 Dose: 750 mg Multivitamins/Minerals/Vitamin C (Tab-A-Vit -) 1 tab PO DAILY [facility] Last Admin: 03/09/17 09:05 Dose: 1 tab Quetiapine Fumarate (Seroquel -) 12.5 mg PO BID [facility] Last Admin: 03/09/17 09:05 Dose: 12.5 mg - Objective Vital Signs: Vital Signs Temperature 97.9 F 03/09/17 15:00 Pulse Rate 84 03/09/17 15:00 Respiratory Rate 16 03/09/17 15:00 Blood Pressure 128/72 03/09/17 15:00 O2 Sat by Pulse Oximetry (%) 99 03/08/17 21:00 Constitutional: Yes: No Distress Cardiovascular: Yes: Regular Rate and Rhythm Respiratory: Yes: CTA Bilaterally Gastrointestinal: Yes: Normal Bowel Sounds, Soft Genitourinary: Yes: WNL Edema: No Integumentary: Yes: WNL Neurological: Yes: Weakness (generalized) Labs: CBC, BMP 03/09/17 07:47 03/09/17 07:47 INR, PTT INR 1.22 (0.82-1.09) H 03/05/17 20:05 Microbiology 03/05/17 19:21 Urine - Urine - Catheterized Urine Culture - Final Escherichia Coli Esbl [employer]er Problem List - Problems (1) Acute metabolic encephalopathy Code(s): G93.41 - METABOLIC ENCEPHALOPATHY (2) Brain mass Code(s): G93.9 - DISORDER OF BRAIN, UNSPECIFIED (3) Dementia Code(s): F03.90 - UNSPECIFIED DEMENTIA WITHOUT BEHAVIORAL DISTURBANCE (4) UTI (urinary tract infection) Code(s): N39.0 - URINARY TRACT INFECTION, SITE NOT SPECIFIED Assessment/Plan ESBL+ E. coli UTI - continue Ertapenem continue monitor pt appears very weak but stable for now
[2017-03-09] MEDS: DONEPEZIL HCL 10 MG TABLET (FP) PO SCH (22:37)
[2017-03-09] MEDS: DOCUSATE SODIUM 100 MG CAPSULE (FP) PO SCH (22:37)
[2017-03-09] MEDS: ACETAMINOPHEN 325 MG TABLET (FP) PO PRN (22:45)
[2017-03-10] MEDS: DEXAMETHASONE SOD PHOSPHATE 4 MG/1 ML VIAL IVPUSH SCH ×4 (02:36→20:52)
[2017-03-10] MEDS ORDERED: PT OWN MED DRAWER 7, Y5N ONE ×2 (09:12→15:06)
[2017-03-10] MEDS: levETIRAcetam 500 MG/5 ML ORAL SOLUTION (UNIT-DOSE CUPS) PO SCH ×2 (09:18→21:01)
[2017-03-10] MEDS: QUEtiapine FUMARATE 25 MG TABLET (FP) PO SCH ×2 (09:19→21:02)
[2017-03-10] MEDS: CLOPIDOGREL BISULFATE 75 MG TABLET (FP) PO SCH (09:19)
[2017-03-10] MEDS: CHOLECALCIFEROL (VITAMIN D3) 1,000 UNIT TABLET (FP) PO SCH (09:21)
[2017-03-10] MEDS: MULTIVITAMINS (DAILY MVI) TABLET (FP) PO SCH (09:21)
[2017-03-10] MEDS: HEPARIN NA (PORCINE) 5,000 UNITS/ML 1ML VIAL SQ SCH ×2 (09:21→21:02)
--- NOTE | 2017-03-10 09:28 | PN ---
Physical Exam: Medicine coverage for Dr. Flower SUBJECTIVE: Patient seen and examined. She is nonverbal, winces to noxious stimuli, calm otherwise, no fever, no issues. OBJECTIVE: Vital Signs Period Temp Pulse Resp BP Sys/Tomlinson Pulse Ox Last 24 Hr 97.9 F-98.2 F 44-84 16-18 128-158/57-72 99 PE Neuro: arousable to touch, Pulm: clear anteriorly CV: s1 s2 rrr no mrg Abd: s nt nd + bs Ext: warm, no le edema Active Medications Generic Name Dose Route Start Last Admin Trade Name Freq PRN Reason Stop Dose Admin Acetaminophen 650 mg 03/06/17 03:42 03/09/17 22:45 Tylenol - PO 650 mg Q6H PRN Administration PAIN Cholecalciferol 1,000 unit 03/06/17 10:00 03/09/17 09:05 Vitamin D3 - PO 1,000 unit DAILY MICHAEL Administration Clopidogrel Bisulfate 75 mg 03/06/17 10:00 03/09/17 09:05 Plavix - PO 75 mg DAILY MICHAEL Administration Dexamethasone Sodium Phosphate 4 mg 03/06/17 15:15 03/10/17 02:36 Decadron Injection - IVPUSH 4 mg Q6H-IV MICHAEL Administration Docusate Sodium 200 mg 03/06/17 22:00 03/09/17 22:37 Colace - PO 200 mg HS MICHAEL Administration Donepezil HCl 10 mg 03/06/17 22:00 03/09/17 22:37 Aricept - PO 10 mg HS MICHAEL Administration Heparin Sodium (Porcine) 5,000 unit 03/06/17 10:00 03/09/17 22:38 Heparin - SQ 5,000 unit BID MICHAEL Administration Ertapenem 1 gm/ Sodium 100 mls @ 200 mls/hr 03/08/17 15:45 03/09/17 10:06 Chloride IVPB 200 mls/hr DAILY MICHAEL Administration Protocol Levetiracetam 750 mg 03/08/17 10:00 03/09/17 22:38 Keppra Oral Solution - PO 750 mg BID MICHAEL Administration Multivitamins/Minerals/Vitamin C 1 tab 03/06/17 10:00 03/09/17 09:05 Tab-A-Vit - PO 1 tab DAILY MICHAEL Administration Quetiapine Fumarate 12.5 mg 03/06/17 10:00 03/09/17 22:38 Seroquel - PO 12.5 mg BID MICHAEL Administration Assessment: 86 year old female with a past medical history of alzheimer's Dementia with psychosis, TIA, seizures and ischemic heart disease who was sent from the [place] with AMS/unresponsive Plan: 1. Acute metabolic encephalopathy - Mulifactorial: infection vs brain mass vs worsening dementia - Responsive to touch today, unclear what is baseline status - Family to decide re: MRI - Neuro following 2. ESBL Ecoli UTI - Continue Ertapenem (day 3) 3. L frontoparietal mass brain mass, hx of seizures - Continue increased dose Keppra dose 750mg BID - Dexamethasone 4mg q6h 4. Alzheimer's Dementia with psychosis - Continue aricept/seroquel 5. TIA - Continue plavix 6. HTN - Elevated this AM, appears labile, not on any home meds - Will monitor and start low dose norvasc as needed 6. DVT ppx - hep sq Dispo: - Poor overall prognosis, presently full code, family to decide goals of care going forward following palliative care discussion 03/08. Visit type - Emergency Visit Emergency Visit: Yes ED Registration Date: 03/05/17 Care time: The patient presented to the Emergency Department on the above date and was hospitalized for further evaluation of their emergent condition. - New Patient This patient is new to me today: Yes Date on this admission: 03/10/17 - Critical Care Critical Care patient: No - Discharge Referral Referred to [facility] Med P.C.: No
[2017-03-10] MEDS: ERTAPENEM SODIUM 1 GM in SODIUM CHLORIDE 100 ML IVPB SCH (10:22)
--- NOTE | 2017-03-10 11:17 | PN ---
Progress Note, Physician History of Present Illness: Pt appears the same as yesterday, weak but responsive to touch. Remain afebrile. No new events reported. - Current Medication List Current Medications: Active Medications Acetaminophen (Tylenol -) 650 mg PO Q6H PRN PRN Reason: PAIN Last Admin: 03/09/17 22:45 Dose: 650 mg Cholecalciferol (Vitamin D3 -) 1,000 unit PO DAILY [facility] Last Admin: 03/10/17 09:21 Dose: 1,000 unit Clopidogrel Bisulfate (Plavix -) 75 mg PO DAILY [facility] Last Admin: 03/10/17 09:19 Dose: 75 mg Dexamethasone Sodium Phosphate (Decadron Injection -) 4 mg IVPUSH Q6H-IV [facility] Last Admin: 03/10/17 09:17 Dose: 4 mg Docusate Sodium (Colace -) 200 mg PO HS [facility] Last Admin: 03/09/17 22:37 Dose: 200 mg Donepezil HCl (Aricept -) 10 mg PO HS [facility] Last Admin: 03/09/17 22:37 Dose: 10 mg Heparin Sodium (Porcine) (Heparin -) 5,000 unit SQ BID [facility] Last Admin: 03/10/17 09:21 Dose: 5,000 unit Ertapenem 1 gm/ Sodium (Chloride) 100 mls @ 200 mls/hr IVPB DAILY [facility] PRN Reason: Protocol Last Admin: 03/10/17 10:22 Dose: 200 mls/hr Levetiracetam (Keppra Oral Solution -) 750 mg PO BID [facility] Last Admin: 03/10/17 09:18 Dose: 750 mg Multivitamins/Minerals/Vitamin C (Tab-A-Vit -) 1 tab PO DAILY [facility] Last Admin: 03/10/17 09:21 Dose: 1 tab Quetiapine Fumarate (Seroquel -) 12.5 mg PO BID [facility] Last Admin: 03/10/17 09:19 Dose: 12.5 mg - Objective Vital Signs: Vital Signs Temperature 98.2 F 03/10/17 06:00 Pulse Rate 44 L 03/10/17 06:00 Respiratory Rate 18 03/10/17 06:00 Blood Pressure 158/57 03/10/17 06:00 O2 Sat by Pulse Oximetry (%) 99 03/09/17 21:00 Constitutional: Yes: No Distress HENT: Yes: Atraumatic Cardiovascular: Yes: Bradycardia Respiratory: Yes: Regular Gastrointestinal: Yes: Normal Bowel Sounds, Soft Edema: No Neurological: Yes: Weakness (generalized) Labs: CBC, BMP 03/09/17 07:47 03/09/17 07:47 INR, PTT INR 1.22 (0.82-1.09) H 03/05/17 20:05 Problem List - Problems (1) Acute metabolic encephalopathy Code(s): G93.41 - METABOLIC ENCEPHALOPATHY (2) Brain mass Code(s): G93.9 - DISORDER OF BRAIN, UNSPECIFIED (3) Dementia Code(s): F03.90 - UNSPECIFIED DEMENTIA WITHOUT BEHAVIORAL DISTURBANCE (4) UTI (urinary tract infection) Code(s): N39.0 - URINARY TRACT INFECTION, SITE NOT SPECIFIED Assessment/Plan ESBL+ E. coli UTI - continue Ertapenem - weak but stable at this time
[2017-03-10] MEDS: DOCUSATE SODIUM 100 MG CAPSULE (FP) PO SCH (21:01)
[2017-03-10] MEDS: DONEPEZIL HCL 10 MG TABLET (FP) PO SCH (21:01)
[2017-03-10] MEDS: ACETAMINOPHEN 325 MG TABLET (FP) PO PRN (21:03)
[2017-03-11] MEDS: DEXAMETHASONE SOD PHOSPHATE 4 MG/1 ML VIAL IVPUSH SCH ×4 (03:00→22:22)
[2017-03-11 08:40] LABS: BASO % 0.1 % (0-2.0); HEMATOCRIT 40.4 % (32.4-45.2); HEMOGLOBIN 12.9 GM/dL (10.7-15.3); LYMPH % 13.2 % (8-40); MCH 31.9 pg (25.7-33.7); MEAN CELL VOLUME 99.7 fl (80-96); MEAN PLT VOLUME 8.9 fl (7.5-11.1); NEUT % 79.7 % (42.8-82.8); PLATELET COUNT 224 K/MM3 (134-434); RBC 4.05 M/mm3 (3.60-5.2); RDW 12.7 % (11.6-15.6); WHITE BLOOD COUNT 4.8 K/mm3 (4.0-10.0)
[2017-03-11 08:49] LABS: ANION GAP 8 (8-16); BLOOD UREA NITROGEN 19 mg/dL (7-18); CALCIUM 8.7 mg/dL (8.5-10.1); CHLORIDE 108 mmol/L (98-107); CO2 27 mmol/L (21-32); CREATININE 0.5 mg/dL (0.55-1.02); GLUCOSE,RANDOM 127 mg/dL (74-106); POTASSIUM 4.2 mmol/L (3.5-5.1); SODIUM 143 mmol/L (136-145)
[2017-03-11] MEDS ORDERED: PT OWN MED DRAWER 7, Y5N ONE ×2 (09:26→22:25)
[2017-03-11] MEDS: ERTAPENEM SODIUM 1 GM in SODIUM CHLORIDE 100 ML IVPB SCH (09:35)
[2017-03-11] MEDS: HEPARIN NA (PORCINE) 5,000 UNITS/ML 1ML VIAL SQ SCH ×2 (09:35→22:22)
[2017-03-11] MEDS: CLOPIDOGREL BISULFATE 75 MG TABLET (FP) PO SCH (09:35)
[2017-03-11] MEDS: levETIRAcetam 500 MG/5 ML ORAL SOLUTION (UNIT-DOSE CUPS) PO SCH ×2 (09:35→22:26)
[2017-03-11] MEDS: CHOLECALCIFEROL (VITAMIN D3) 1,000 UNIT TABLET (FP) PO SCH (09:36)
[2017-03-11] MEDS: MULTIVITAMINS (DAILY MVI) TABLET (FP) PO SCH (09:36)
[2017-03-11] MEDS: QUEtiapine FUMARATE 25 MG TABLET (FP) PO SCH ×2 (09:36→22:22)
--- NOTE | 2017-03-11 10:29 | PN ---
Progress Note (short form) - Note Progress Note: Neurology HISTORY OF PRESENT ILLNESS: This is an 86 year old female with a past medical history of alzheimer's Dementia with psychosis, TIA, ischemic heart disease who was sent from the [place] with AMS/unresponsive. CT head completed and was impressive for 4. 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 Patient also admitted for UTI and on Keppra for seizures, 500mg twice daily. No seizure like activity for this admission. Of note, UA found to be positive and patient started on Abx. If meningioma, would not likely cause acute mental status change but likely can play a role over fpc deterioration especially due to size. Unclear how much of this would be due to tumor vs cognitive impairment from dementia. No family at bedside this AM. Remains stable. Spoke to daughter in law on saturday and family to decide goals of care and whether they want to pursue further MRI brain for mass. Awaiting response. Active Medications Acetaminophen (Tylenol -) 650 mg PO Q6H PRN PRN Reason: PAIN Last Admin: 03/10/17 21:03 Dose: 650 mg Cholecalciferol (Vitamin D3 -) 1,000 unit PO DAILY [facility] Last Admin: 03/11/17 09:36 Dose: 1,000 unit Clopidogrel Bisulfate (Plavix -) 75 mg PO DAILY [facility] Last Admin: 03/11/17 09:35 Dose: 75 mg Dexamethasone Sodium Phosphate (Decadron Injection -) 4 mg IVPUSH Q6H-IV [facility] Last Admin: 03/11/17 09:35 Dose: 4 mg Docusate Sodium (Colace -) 200 mg PO HS [facility] Last Admin: 03/10/17 21:01 Dose: 200 mg Donepezil HCl (Aricept -) 10 mg PO HS [facility] Last Admin: 03/10/17 21:01 Dose: 10 mg Heparin Sodium (Porcine) (Heparin -) 5,000 unit SQ BID [facility] Last Admin: 03/11/17 09:35 Dose: 5,000 unit Ertapenem 1 gm/ Sodium (Chloride) 100 mls @ 200 mls/hr IVPB DAILY [facility] PRN Reason: Protocol Last Admin: 03/11/17 09:35 Dose: 200 mls/hr Levetiracetam (Keppra Oral Solution -) 750 mg PO BID [facility] Last Admin: 03/11/17 09:35 Dose: 750 mg Multivitamins/Minerals/Vitamin C (Tab-A-Vit -) 1 tab PO DAILY [facility] Last Admin: 03/11/17 09:36 Dose: 1 tab Quetiapine Fumarate (Seroquel -) 12.5 mg PO BID [facility] Last Admin: 03/11/17 09:36 Dose: 12.5 mg PHYSICAL EXAMINATION Vital Signs Period Temp Pulse Resp BP Sys/Tomlinson Pulse Ox Last 24 Hr 97.5 F-98.2 F 44-72 18-18 141-172/66-80 99 GENERAL: Awake, alert, and disoriented, in no acute distress. follows with her eyes HEAD: Normal with no signs of trauma. EYES: Pupils equal, round and reactive to light, extraocular movements intact, sclera anicteric, conjunctiva clear. No lid lag. EARS, NOSE, THROAT: Ears normal, nares patent, oropharynx clear without exudates. Moist mucous membranes. NECK: Normal range of motion, supple without lymphadenopathy, JVD, or masses. LUNGS: Breath sounds equal, clear to auscultation bilaterally. No wheezes, and no crackles. No accessory muscle use. HEART: Regular rate and rhythm, normal S1 and S2 without murmur, rub or gallop. ABDOMEN: Soft, nontender, not distended, normoactive bowel sounds, no guarding, no rebound, no masses. No hepatomegaly or splenomegaly. MUSCULOSKELETAL: Normal range of motion at all joints. No bony deformities or tenderness. No CVA tenderness. UPPER EXTREMITIES: 2+ pulses, warm, well-perfused. No cyanosis. No clubbing. No peripheral edema. LOWER EXTREMITIES: 2+ pulses, warm, well-perfused. No calf tenderness. No peripheral edema. NEUROLOGICAL: Cranial nerves intact, grossly moving ext, not cooperative on confrontation, sensory intact PSYCHIATRIC: Cooperative. Good eye contact. Appropriate mood and affect. SKIN: Warm, dry, normal turgor, no rashes or lesions noted, normal capillary refill. CBCD WBC 4.8 K/mm3 (4.0-10.0) 03/11/17 07:00 RBC 4.05 M/mm3 (3.60-5.2) 03/11/17 07:00 Hgb 12.9 GM/dL (10.7-15.3) 03/11/17 07:00 Hct 40.4 % (32.4-45.2) 03/11/17 07:00 MCV 99.7 fl (80-96) H 03/11/17 07:00 MCHC 32.0 g/dl (32.0-36.0) 03/11/17 07:00 RDW 12.7 % (11.6-15.6) 03/11/17 07:00 Plt Count 224 K/MM3 (134-434) 03/11/17 07:00 MPV 8.9 fl (7.5-11.1) 03/11/17 07:00 CMP Sodium 143 mmol/L (136-145) 03/11/17 07:00 Potassium 4.2 mmol/L (3.5-5.1) 03/11/17 07:00 Chloride 108 mmol/L (98-107) H 03/11/17 07:00 Carbon Dioxide 27 mmol/L (21-32) 03/11/17 07:00 Anion Gap 8 (8-16) 03/11/17 07:00 BUN 19 mg/dL (7-18) H 03/11/17 07:00 Creatinine 0.5 mg/dL (0.55-1.02) L 03/11/17 07:00 Creat Clearance w eGFR > 60 (>60) 03/08/17 06:00 Calcium 8.7 mg/dL (8.5-10.1) 03/11/17 07:00 Total Bilirubin 0.3 mg/dL (0.2-1.0) 03/08/17 06:00 AST 12 U/L (15-37) L 03/08/17 06:00 ALT 10 U/L (12-78) L 03/08/17 06:00 Alkaline Phosphatase 131 U/L (45-117) H 03/08/17 06:00 Total Protein 7.1 g/dl (6.4-8.2) 03/08/17 06:00 Albumin 2.5 g/dl (3.4-5.0) L 03/08/17 06:00 Radiology Reports: CT head: IMPRESSION: An approximately 4. 4 x 4 x 3.7 cm left frontoparietal dural based mass lesion is identified with associated calvarial erosion as discussed above. 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 A 1 cm nonexpansile nonspecific focus is seen within the right parietal calvarium laterally at the high convexity level. Additional evaluation utilizing whole-body radionuclide bone scan including SPECT may be considered. Alternatively comparison with previous studies may be performed if available from a different facility. Paranasal sinus disease as discussed above. ASSESSMENT/PLAN: 86 year old female with a past medical history of alzheimer's Dementia with psychosis, TIA, ischemic heart disease who was sent from the [place] with AMS/ unresponsive. CT head completed and was impressive for 4. 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 Patient also admitted for UTI No seizure like activity for this admission. Depending on goals of care, next step would be to have MRI brain with contrast. However, given age and current level of functionality, unclear that benefit would outweigh risk if surgical intervention were to be considered. Family would need to decide on they would want to pursue possible surgical intervention Spoke to daughter in law previously and she or son would get back to us Increased Keppra to 750mg twice daily to provide further seizure protection. On Decadron for now. Can continue seroquel and Aricept. Acute mental status deterioration possible more due to UTI which is being treated with Ceftriaxone and improving Depending on family wishes, NSGY consult may be indicated if they would like to pursue further intervention after MRI
--- NOTE | 2017-03-11 12:14 | PN ---
Progress Note, Physician History of Present Illness: stable no new issues non verbal - Current Medication List Current Medications: Active Medications Acetaminophen (Tylenol -) 650 mg PO Q6H PRN PRN Reason: PAIN Last Admin: 03/10/17 21:03 Dose: 650 mg Cholecalciferol (Vitamin D3 -) 1,000 unit PO DAILY [facility] Last Admin: 03/11/17 09:36 Dose: 1,000 unit Clopidogrel Bisulfate (Plavix -) 75 mg PO DAILY [facility] Last Admin: 03/11/17 09:35 Dose: 75 mg Dexamethasone Sodium Phosphate (Decadron Injection -) 4 mg IVPUSH Q6H-IV [facility] Last Admin: 03/11/17 09:35 Dose: 4 mg Docusate Sodium (Colace -) 200 mg PO HS [facility] Last Admin: 03/10/17 21:01 Dose: 200 mg Donepezil HCl (Aricept -) 10 mg PO HS [facility] Last Admin: 03/10/17 21:01 Dose: 10 mg Heparin Sodium (Porcine) (Heparin -) 5,000 unit SQ BID [facility] Last Admin: 03/11/17 09:35 Dose: 5,000 unit Ertapenem 1 gm/ Sodium (Chloride) 100 mls @ 200 mls/hr IVPB DAILY [facility] PRN Reason: Protocol Last Admin: 03/11/17 09:35 Dose: 200 mls/hr Levetiracetam (Keppra Oral Solution -) 750 mg PO BID [facility] Last Admin: 03/11/17 09:35 Dose: 750 mg Multivitamins/Minerals/Vitamin C (Tab-A-Vit -) 1 tab PO DAILY [facility] Last Admin: 03/11/17 09:36 Dose: 1 tab Quetiapine Fumarate (Seroquel -) 12.5 mg PO BID [facility] Last Admin: 03/11/17 09:36 Dose: 12.5 mg - Objective Vital Signs: Vital Signs Temperature 97.5 F L 03/11/17 07:56 Pulse Rate 44 L 03/11/17 07:56 Respiratory Rate 18 03/11/17 07:56 Blood Pressure 167/66 03/11/17 07:56 O2 Sat by Pulse Oximetry (%) 99 03/10/17 21:00 Constitutional: Yes: No Distress, Calm Cardiovascular: Yes: Regular Rate and Rhythm Respiratory: Yes: Regular, CTA Bilaterally Gastrointestinal: Yes: Normal Bowel Sounds, Soft Musculoskeletal: Yes: WNL Extremities: Yes: Other Neurological: Yes: Alert, Other Psychiatric: Yes: Other Labs: CBC, BMP 03/11/17 07:00 03/11/17 07:00 INR, PTT INR 1.22 (0.82-1.09) H 03/05/17 20:05 Assessment/Plan Problem List - Problems (1) Acute metabolic encephalopathy Code(s): G93.41 - METABOLIC ENCEPHALOPATHY (2) Brain mass Code(s): G93.9 - DISORDER OF BRAIN, UNSPECIFIED (3) UTI (urinary tract infection) Code(s): N39.0 - URINARY TRACT INFECTION, SITE NOT SPECIFIED (4) Dementia Code(s): F03.90 - UNSPECIFIED DEMENTIA WITHOUT BEHAVIORAL DISTURBANCE (5) History of seizure Code(s): Z87.898 - PERSONAL HISTORY OF OT plan continue current abx close watch
--- NOTE | 2017-03-11 13:29 | PN ---
Progress Note, Physician Chief Complaint: Unable to obtain, patient responding today but not making words - Current Medication List Current Medications: Active Medications Acetaminophen (Tylenol -) 650 mg PO Q6H PRN PRN Reason: PAIN Last Admin: 03/10/17 21:03 Dose: 650 mg Cholecalciferol (Vitamin D3 -) 1,000 unit PO DAILY [facility] Last Admin: 03/11/17 09:36 Dose: 1,000 unit Clopidogrel Bisulfate (Plavix -) 75 mg PO DAILY [facility] Last Admin: 03/11/17 09:35 Dose: 75 mg Dexamethasone Sodium Phosphate (Decadron Injection -) 4 mg IVPUSH Q6H-IV [facility] Last Admin: 03/11/17 09:35 Dose: 4 mg Docusate Sodium (Colace -) 200 mg PO HS [facility] Last Admin: 03/10/17 21:01 Dose: 200 mg Donepezil HCl (Aricept -) 10 mg PO HS [facility] Last Admin: 03/10/17 21:01 Dose: 10 mg Heparin Sodium (Porcine) (Heparin -) 5,000 unit SQ BID [facility] Last Admin: 03/11/17 09:35 Dose: 5,000 unit Ertapenem 1 gm/ Sodium (Chloride) 100 mls @ 200 mls/hr IVPB DAILY [facility] PRN Reason: Protocol Last Admin: 03/11/17 09:35 Dose: 200 mls/hr Levetiracetam (Keppra Oral Solution -) 750 mg PO BID [facility] Last Admin: 03/11/17 09:35 Dose: 750 mg Multivitamins/Minerals/Vitamin C (Tab-A-Vit -) 1 tab PO DAILY [facility] Last Admin: 03/11/17 09:36 Dose: 1 tab Quetiapine Fumarate (Seroquel -) 12.5 mg PO BID [facility] Last Admin: 03/11/17 09:36 Dose: 12.5 mg - Objective Vital Signs: Vital Signs Temperature 36.6 C 03/11/17 11:00 Pulse Rate 52 L 03/11/17 11:00 Respiratory Rate 18 03/11/17 11:00 Blood Pressure 154/75 03/11/17 11:00 O2 Sat by Pulse Oximetry (%) 98 03/11/17 09:00 Constitutional: Yes: Well Nourished, No Distress, Calm Cardiovascular: Yes: Regular Rate and Rhythm. No: Gallop, Murmur, Rub Respiratory: Yes: Regular, CTA Bilaterally. No: Rales, Rhonchi, Wheezes Gastrointestinal: Yes: Normal Bowel Sounds, Soft. No: Distention, Tenderness Extremities: Yes: WNL Edema: No Labs: CBC, BMP 03/11/17 07:00 03/11/17 07:00 INR, PTT INR 1.22 (0.82-1.09) H 03/05/17 20:05 Problem List - Problems (1) Acute metabolic encephalopathy Code(s): G93.41 - METABOLIC ENCEPHALOPATHY (2) Brain mass Code(s): G93.9 - DISORDER OF BRAIN, UNSPECIFIED (3) UTI (urinary tract infection) Code(s): N39.0 - URINARY TRACT INFECTION, SITE NOT SPECIFIED (4) Dementia Code(s): F03.90 - UNSPECIFIED DEMENTIA WITHOUT BEHAVIORAL DISTURBANCE (5) History of seizure Code(s): Z87.898 - PERSONAL HISTORY OF OTHER SPECIFIED CONDITIONS Assessment/Plan (1) Acute metabolic encephalopathy Assessment/Plan: -multifactorial -continue treating UTI -suspect patient is now at baseline Code(s): G93.41 - METABOLIC ENCEPHALOPATHY (2) Brain mass Assessment/Plan: -continue dexamethasone -neurology following -will call son again tomorrow to discuss goals of care -would not recommend further evaluation, considering patient's functional status would benefit from comfort measures Code(s): G93.9 - DISORDER OF BRAIN, UNSPECIFIED (3) UTI (urinary tract infection) Assessment/Plan: -now growing ESBL e coli -ID following and case discussed -continue ertapenem Code(s): N39.0 - URINARY TRACT INFECTION, SITE NOT SPECIFIED (4) Dementia Assessment/Plan: -as above Code(s): F03.90 - UNSPECIFIED DEMENTIA WITHOUT BEHAVIORAL DISTURBANCE (5) History of seizure Assessment/Plan: -case d/w neurology -continue IV keppra Code(s): Z87.898 - PERSONAL HISTORY OF OTHER SPECIFIED CONDITIONS Dispo -will continue discussion with son about goals of care
[2017-03-11] MEDS: DONEPEZIL HCL 10 MG TABLET (FP) PO SCH (22:22)
[2017-03-11] MEDS: DOCUSATE SODIUM 100 MG CAPSULE (FP) PO SCH (22:23)
[2017-03-12] MEDS: DEXAMETHASONE SOD PHOSPHATE 4 MG/1 ML VIAL IVPUSH SCH ×4 (02:38→21:00)
[2017-03-12 07:48] LABS: ANION GAP 9 (8-16); BLOOD UREA NITROGEN 18 mg/dL (7-18); CALCIUM 8.9 mg/dL (8.5-10.1); CHLORIDE 108 mmol/L (98-107); CO2 27 mmol/L (21-32); CREATININE 0.4 mg/dL (0.55-1.02); GLUCOSE,RANDOM 145 mg/dL (74-106); MAGNESIUM 2.3 mg/dL (1.8-2.4); PHOSPHOROUS 2.4 mg/dL (2.5-4.9); SODIUM 144 mmol/L (136-145)
[2017-03-12 07:54] LABS: BASO % 0.1 % (0-2.0); MCH 31.3 pg (25.7-33.7); MCHC 31.5 g/dl (32.0-36.0); MEAN CELL VOLUME 99.6 fl (80-96); MONO % 2.7 % (3.8-10.2); NEUT % 89.2 % (42.8-82.8); PLATELET COUNT 215 K/MM3 (134-434); RBC 3.82 M/mm3 (3.60-5.2); RDW 12.6 % (11.6-15.6)
[2017-03-12] MEDS ORDERED: PT OWN MED DRAWER 7, Y5N ONE (09:18)
[2017-03-12] MEDS: HEPARIN NA (PORCINE) 5,000 UNITS/ML 1ML VIAL SQ SCH ×2 (10:13→22:55)
[2017-03-12] MEDS: ERTAPENEM SODIUM 1 GM in SODIUM CHLORIDE 100 ML IVPB SCH (10:13)
[2017-03-12] MEDS: levETIRAcetam 500 MG/5 ML ORAL SOLUTION (UNIT-DOSE CUPS) PO SCH ×2 (10:13→22:55)
[2017-03-12] MEDS: QUEtiapine FUMARATE 25 MG TABLET (FP) PO SCH ×2 (10:14→22:55)
[2017-03-12] MEDS: MULTIVITAMINS (DAILY MVI) TABLET (FP) PO SCH (10:14)
[2017-03-12] MEDS: CLOPIDOGREL BISULFATE 75 MG TABLET (FP) PO SCH (10:14)
[2017-03-12] MEDS: CHOLECALCIFEROL (VITAMIN D3) 1,000 UNIT TABLET (FP) PO SCH (10:14)
--- NOTE | 2017-03-12 10:39 | PN ---
Progress Note (short form) - Note Progress Note: Neurology HISTORY OF PRESENT ILLNESS: This is an 86 year old female with a past medical history of alzheimer's Dementia with psychosis, TIA, ischemic heart disease who was sent from the [place] with AMS/unresponsive. CT head completed and was impressive for 4. 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 Patient also admitted for UTI and on Keppra for seizures, 500mg twice daily. No seizure like activity for this admission. Of note, UA found to be positive and patient started on Abx. If meningioma, would not likely cause acute mental status change but likely can play a role over nursing home deterioration especially due to size. Unclear how much of this would be due to tumor vs cognitive impairment from dementia. No family at bedside this AM. Remains stable. Spoke to daughter in law on saturday and family to decide goals of care and whether they want to pursue further MRI brain for mass. Awaiting response. Nurse informed me palliative tried reaching son yesterday. Hospitalist likely to try again today. Active Medications Acetaminophen (Tylenol -) 650 mg PO Q6H PRN PRN Reason: PAIN Last Admin: 03/10/17 21:03 Dose: 650 mg Cholecalciferol (Vitamin D3 -) 1,000 unit PO DAILY [facility] Last Admin: 03/12/17 10:14 Dose: 1,000 unit Clopidogrel Bisulfate (Plavix -) 75 mg PO DAILY [facility] Last Admin: 03/12/17 10:14 Dose: 75 mg Dexamethasone Sodium Phosphate (Decadron Injection -) 4 mg IVPUSH Q6H-IV [facility] Last Admin: 03/12/17 10:13 Dose: 4 mg Docusate Sodium (Colace -) 200 mg PO HS [facility] Last Admin: 03/11/17 22:23 Dose: 200 mg Donepezil HCl (Aricept -) 10 mg PO HS [facility] Last Admin: 03/11/17 22:22 Dose: 10 mg Heparin Sodium (Porcine) (Heparin -) 5,000 unit SQ BID [facility] Last Admin: 03/12/17 10:13 Dose: 5,000 unit Ertapenem 1 gm/ Sodium (Chloride) 100 mls @ 200 mls/hr IVPB DAILY [facility] PRN Reason: Protocol Last Admin: 03/12/17 10:13 Dose: 200 mls/hr Levetiracetam (Keppra Oral Solution -) 750 mg PO BID [facility] Last Admin: 03/12/17 10:13 Dose: 750 mg Multivitamins/Minerals/Vitamin C (Tab-A-Vit -) 1 tab PO DAILY [facility] Last Admin: 03/12/17 10:14 Dose: 1 tab Quetiapine Fumarate (Seroquel -) 12.5 mg PO BID [facility] Last Admin: 03/12/17 10:14 Dose: 12.5 mg PHYSICAL EXAMINATION Vital Signs Temperature 97.4 F L 03/12/17 06:08 Pulse Rate 55 L 03/12/17 06:08 Respiratory Rate 20 03/12/17 06:08 Blood Pressure 142/64 03/12/17 06:08 O2 Sat by Pulse Oximetry (%) 98 03/11/17 21:00 GENERAL: Awake, alert, and disoriented, in no acute distress. follows with her eyes HEAD: Normal with no signs of trauma. EYES: Pupils equal, round and reactive to light, extraocular movements intact, sclera anicteric, conjunctiva clear. No lid lag. EARS, NOSE, THROAT: Ears normal, nares patent, oropharynx clear without exudates. Moist mucous membranes. NECK: Normal range of motion, supple without lymphadenopathy, JVD, or masses. LUNGS: Breath sounds equal, clear to auscultation bilaterally. No wheezes, and no crackles. No accessory muscle use. HEART: Regular rate and rhythm, normal S1 and S2 without murmur, rub or gallop. ABDOMEN: Soft, nontender, not distended, normoactive bowel sounds, no guarding, no rebound, no masses. No hepatomegaly or splenomegaly. MUSCULOSKELETAL: Normal range of motion at all joints. No bony deformities or tenderness. No CVA tenderness. UPPER EXTREMITIES: 2+ pulses, warm, well-perfused. No cyanosis. No clubbing. No peripheral edema. LOWER EXTREMITIES: 2+ pulses, warm, well-perfused. No calf tenderness. No peripheral edema. NEUROLOGICAL: Cranial nerves intact, grossly moving ext, not cooperative on confrontation, sensory intact PSYCHIATRIC: Cooperative. Good eye contact. Appropriate mood and affect. SKIN: Warm, dry, normal turgor, no rashes or lesions noted, normal capillary refill. CBCD WBC 4.0 K/mm3 (4.0-10.0) 03/12/17 06:00 RBC 3.82 M/mm3 (3.60-5.2) 03/12/17 06:00 Hgb 12.0 GM/dL (10.7-15.3) 03/12/17 06:00 Hct 38.0 % (32.4-45.2) 03/12/17 06:00 MCV 99.6 fl (80-96) H 03/12/17 06:00 MCHC 31.5 g/dl (32.0-36.0) L 03/12/17 06:00 RDW 12.6 % (11.6-15.6) 03/12/17 06:00 Plt Count 215 K/MM3 (134-434) 03/12/17 06:00 MPV 9.0 fl (7.5-11.1) 03/12/17 06:00 CMP Sodium 144 mmol/L (136-145) 03/12/17 06:00 Potassium 4.0 mmol/L (3.5-5.1) 03/12/17 06:00 Chloride 108 mmol/L (98-107) H 03/12/17 06:00 Carbon Dioxide 27 mmol/L (21-32) 03/12/17 06:00 Anion Gap 9 (8-16) 03/12/17 06:00 BUN 18 mg/dL (7-18) 03/12/17 06:00 Creatinine 0.4 mg/dL (0.55-1.02) L 03/12/17 06:00 Creat Clearance w eGFR > 60 (>60) 03/08/17 06:00 Calcium 8.9 mg/dL (8.5-10.1) 03/12/17 06:00 Total Bilirubin 0.3 mg/dL (0.2-1.0) 03/08/17 06:00 AST 12 U/L (15-37) L 03/08/17 06:00 ALT 10 U/L (12-78) L 03/08/17 06:00 Alkaline Phosphatase 131 U/L (45-117) H 03/08/17 06:00 Total Protein 7.1 g/dl (6.4-8.2) 03/08/17 06:00 Albumin 2.5 g/dl (3.4-5.0) L 03/08/17 06:00 Radiology Reports: CT head: IMPRESSION: An approximately 4. 4 x 4 x 3.7 cm left frontoparietal dural based mass lesion is identified with associated calvarial erosion as discussed above. 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 A 1 cm nonexpansile nonspecific focus is seen within the right parietal calvarium laterally at the high convexity level. Additional evaluation utilizing whole-body radionuclide bone scan including SPECT may be considered. Alternatively comparison with previous studies may be performed if available from a different facility. Paranasal sinus disease as discussed above. ASSESSMENT/PLAN: 86 year old female with a past medical history of alzheimer's Dementia with psychosis, TIA, ischemic heart disease who was sent from the [place] with AMS/ unresponsive. CT head completed and was impressive for 4. 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 Patient also admitted for UTI No seizure like activity for this admission. Depending on goals of care, next step would be to have MRI brain with contrast. However, given age and current level of functionality, unclear that benefit would outweigh risk if surgical intervention were to be considered. Family would need to decide on they would want to pursue possible surgical intervention Spoke to daughter in law previously and she or son would get back to us Increased Keppra to 750mg twice daily to provide further seizure protection. On Decadron for now. Will reduce dose as has been on it for a week. Can continue seroquel and Aricept. Acute mental status deterioration possible more due to UTI which is being treated with Ceftriaxone and improving Depending on family wishes, NSGY consult may be indicated if they would like to pursue further intervention after MRI
--- NOTE | 2017-03-12 11:09 | PN ---
Progress Note, Physician Chief Complaint: Unable to obtain today, patient non-verbal - Current Medication List Current Medications: Active Medications Acetaminophen (Tylenol -) 650 mg PO Q6H PRN PRN Reason: PAIN Last Admin: 03/10/17 21:03 Dose: 650 mg Cholecalciferol (Vitamin D3 -) 1,000 unit PO DAILY [facility] Last Admin: 03/12/17 10:14 Dose: 1,000 unit Clopidogrel Bisulfate (Plavix -) 75 mg PO DAILY [facility] Last Admin: 03/12/17 10:14 Dose: 75 mg Dexamethasone Sodium Phosphate (Decadron Injection -) 2 mg IVPUSH Q6H-IV [facility] Docusate Sodium (Colace -) 200 mg PO HS [facility] Last Admin: 03/11/17 22:23 Dose: 200 mg Donepezil HCl (Aricept -) 10 mg PO HS [facility] Last Admin: 03/11/17 22:22 Dose: 10 mg Heparin Sodium (Porcine) (Heparin -) 5,000 unit SQ BID [facility] Last Admin: 03/12/17 10:13 Dose: 5,000 unit Ertapenem 1 gm/ Sodium (Chloride) 100 mls @ 200 mls/hr IVPB DAILY [facility] PRN Reason: Protocol Last Admin: 03/12/17 10:13 Dose: 200 mls/hr Levetiracetam (Keppra Oral Solution -) 750 mg PO BID [facility] Last Admin: 03/12/17 10:13 Dose: 750 mg Multivitamins/Minerals/Vitamin C (Tab-A-Vit -) 1 tab PO DAILY [facility] Last Admin: 03/12/17 10:14 Dose: 1 tab Quetiapine Fumarate (Seroquel -) 12.5 mg PO BID [facility] Last Admin: 03/12/17 10:14 Dose: 12.5 mg - Objective Vital Signs: Vital Signs Temperature 36.3 C L 03/12/17 06:08 Pulse Rate 55 L 03/12/17 06:08 Respiratory Rate 20 03/12/17 06:08 Blood Pressure 142/64 03/12/17 06:08 O2 Sat by Pulse Oximetry (%) 98 03/11/17 21:00 Constitutional: Yes: Well Nourished, No Distress, Calm Cardiovascular: Yes: Regular Rate and Rhythm. No: Gallop, Murmur, Rub Respiratory: Yes: Regular, CTA Bilaterally. No: Rales, Rhonchi, Wheezes Gastrointestinal: Yes: Normal Bowel Sounds, Soft. No: Distention, Tenderness Extremities: Yes: WNL Edema: No Labs: CBC, BMP 03/12/17 06:00 03/12/17 06:00 INR, PTT INR 1.22 (0.82-1.09) H 03/05/17 20:05 Problem List - Problems (1) Acute metabolic encephalopathy Code(s): G93.41 - METABOLIC ENCEPHALOPATHY (2) Brain mass Code(s): G93.9 - DISORDER OF BRAIN, UNSPECIFIED (3) UTI (urinary tract infection) Code(s): N39.0 - URINARY TRACT INFECTION, SITE NOT SPECIFIED (4) Dementia Code(s): F03.90 - UNSPECIFIED DEMENTIA WITHOUT BEHAVIORAL DISTURBANCE (5) History of seizure Code(s): Z87.898 - PERSONAL HISTORY OF OTHER SPECIFIED CONDITIONS Assessment/Plan (1) Acute metabolic encephalopathy Assessment/Plan: -multifactorial -continue treating UTI -suspect patient is now at baseline Code(s): G93.41 - METABOLIC ENCEPHALOPATHY (2) Brain mass Assessment/Plan: -continue dexamethasone, decrease per neurology -neurology following and case discussed -will call son today -would not recommend further evaluation, considering patient's functional status would benefit from comfort measures Code(s): G93.9 - DISORDER OF BRAIN, UNSPECIFIED (3) UTI (urinary tract infection) Assessment/Plan: -now growing ESBL e coli -ID following and case discussed -continue ertapenem, will need 14 days total Code(s): N39.0 - URINARY TRACT INFECTION, SITE NOT SPECIFIED (4) Dementia Assessment/Plan: -as above Code(s): F03.90 - UNSPECIFIED DEMENTIA WITHOUT BEHAVIORAL DISTURBANCE (5) History of seizure Assessment/Plan: -case d/w neurology -continue IV keppra Code(s): Z87.898 - PERSONAL HISTORY OF OTHER SPECIFIED CONDITIONS Dispo -will continue discussion with son about goals of care
--- NOTE | 2017-03-12 13:34 | PN ---
Progress Note, Physician History of Present Illness: stable no new issues non verbal non verbal - Current Medication List Current Medications: Active Medications Acetaminophen (Tylenol -) 650 mg PO Q6H PRN PRN Reason: PAIN Last Admin: 03/10/17 21:03 Dose: 650 mg Cholecalciferol (Vitamin D3 -) 1,000 unit PO DAILY [facility] Last Admin: 03/12/17 10:14 Dose: 1,000 unit Clopidogrel Bisulfate (Plavix -) 75 mg PO DAILY [facility] Last Admin: 03/12/17 10:14 Dose: 75 mg Dexamethasone Sodium Phosphate (Decadron Injection -) 2 mg IVPUSH Q6H-IV [facility] Docusate Sodium (Colace -) 200 mg PO HS [facility] Last Admin: 03/11/17 22:23 Dose: 200 mg Donepezil HCl (Aricept -) 10 mg PO HS [facility] Last Admin: 03/11/17 22:22 Dose: 10 mg Heparin Sodium (Porcine) (Heparin -) 5,000 unit SQ BID [facility] Last Admin: 03/12/17 10:13 Dose: 5,000 unit Ertapenem 1 gm/ Sodium (Chloride) 100 mls @ 200 mls/hr IVPB DAILY [facility] PRN Reason: Protocol Last Admin: 03/12/17 10:13 Dose: 200 mls/hr Levetiracetam (Keppra Oral Solution -) 750 mg PO BID [facility] Last Admin: 03/12/17 10:13 Dose: 750 mg Multivitamins/Minerals/Vitamin C (Tab-A-Vit -) 1 tab PO DAILY [facility] Last Admin: 03/12/17 10:14 Dose: 1 tab Quetiapine Fumarate (Seroquel -) 12.5 mg PO BID [facility] Last Admin: 03/12/17 10:14 Dose: 12.5 mg - Objective Vital Signs: Vital Signs Temperature 98.2 F 03/12/17 10:00 Pulse Rate 56 L 03/12/17 10:00 Respiratory Rate 18 03/12/17 10:00 Blood Pressure 154/62 03/12/17 10:00 O2 Sat by Pulse Oximetry (%) 98 03/12/17 09:00 Constitutional: Yes: No Distress, Calm Cardiovascular: Yes: Regular Rate and Rhythm Respiratory: Yes: Regular, CTA Bilaterally Gastrointestinal: Yes: Normal Bowel Sounds, Soft Musculoskeletal: Yes: WNL Extremities: Yes: WNL Neurological: Yes: Alert, Other Psychiatric: Yes: Other Labs: CBC, BMP 03/12/17 06:00 03/12/17 06:00 INR, PTT INR 1.22 (0.82-1.09) H 03/05/17 20:05 Assessment/Plan Problem List - Problems (1) Acute metabolic encephalopathy Code(s): G93.41 - METABOLIC ENCEPHALOPATHY (2) Brain mass Code(s): G93.9 - DISORDER OF BRAIN, UNSPECIFIED (3) UTI (urinary tract infection) Code(s): N39.0 - URINARY TRACT INFECTION, SITE NOT SPECIFIED (4) Dementia Code(s): F03.90 - UNSPECIFIED DEMENTIA WITHOUT BEHAVIORAL DISTURBANCE (5) History of seizure Code(s): Z87.898 - PERSONAL HISTORY OF OT plan continue current abx close watch patient will need a total of 14 abx rest as per primary
[2017-03-12] MEDS: DOCUSATE SODIUM 100 MG CAPSULE (FP) PO SCH (22:56)
[2017-03-12] MEDS: DONEPEZIL HCL 10 MG TABLET (FP) PO SCH (22:56)
[2017-03-13] MEDS: DEXAMETHASONE SOD PHOSPHATE 4 MG/1 ML VIAL IVPUSH SCH ×4 (02:40→20:50)
[2017-03-13 08:26] LABS: BASO % 0.1 % (0-2.0); HEMATOCRIT 41.9 % (32.4-45.2); HEMOGLOBIN 13.3 GM/dL (10.7-15.3); LYMPH % 8.8 % (8-40); MCH 31.8 pg (25.7-33.7); MCHC 31.7 g/dl (32.0-36.0); MEAN CELL VOLUME 100.4 fl (80-96); MEAN PLT VOLUME 9.3 fl (7.5-11.1); MONO % 3.7 % (3.8-10.2); NEUT % 87.4 % (42.8-82.8); PLATELET COUNT 221 K/MM3 (134-434); RBC 4.17 M/mm3 (3.60-5.2); RDW 12.7 % (11.6-15.6); WHITE BLOOD COUNT 6.2 K/mm3 (4.0-10.0)
[2017-03-13 09:09] LABS: ANION GAP 8 (8-16); BLOOD UREA NITROGEN 18 mg/dL (7-18); CHLORIDE 108 mmol/L (98-107); CO2 26 mmol/L (21-32); GLUCOSE,RANDOM 117 mg/dL (74-106); POTASSIUM 4.6 mmol/L (3.5-5.1); SODIUM 142 mmol/L (136-145)
[2017-03-13 09:12] LABS: CALCIUM 9.3 mg/dL (8.5-10.1); CREATININE 0.4 mg/dL (0.55-1.02); MAGNESIUM 2.5 mg/dL (1.8-2.4); PHOSPHOROUS 2.8 mg/dL (2.5-4.9)
--- NOTE | 2017-03-13 09:42 | PN ---
Progress Note (short form) - Note Progress Note: Neurology HISTORY OF PRESENT ILLNESS: This is an 86 year old female with a past medical history of alzheimer's Dementia with psychosis, TIA, ischemic heart disease who was sent from the [place] with AMS/unresponsive. CT head completed and was impressive for 4. 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 Patient also admitted for UTI and on Keppra for seizures, 500mg twice daily. No seizure like activity for this admission. Of note, UA found to be positive and patient started on Abx. If meningioma, would not likely cause acute mental status change but likely can play a role over skilled nursing deterioration especially due to size. Unclear how much of this would be due to tumor vs cognitive impairment from dementia. Remains stable, open eyes and tracks examiner. Family to decide goals of care and whether they want to pursue further MRI brain for mass. Awaiting response, hospitalist coordinating. Active Medications Acetaminophen (Tylenol -) 650 mg PO Q6H PRN PRN Reason: PAIN Last Admin: 03/10/17 21:03 Dose: 650 mg Cholecalciferol (Vitamin D3 -) 1,000 unit PO DAILY [facility] Last Admin: 03/12/17 10:14 Dose: 1,000 unit Clopidogrel Bisulfate (Plavix -) 75 mg PO DAILY [facility] Last Admin: 03/12/17 10:14 Dose: 75 mg Dexamethasone Sodium Phosphate (Decadron Injection -) 2 mg IVPUSH Q6H-IV [facility] Last Admin: 03/13/17 08:39 Dose: 2 mg Docusate Sodium (Colace -) 200 mg PO HS [facility] Last Admin: 03/12/17 22:56 Dose: 200 mg Donepezil HCl (Aricept -) 10 mg PO HS [facility] Last Admin: 03/12/17 22:56 Dose: 10 mg Heparin Sodium (Porcine) (Heparin -) 5,000 unit SQ BID [facility] Last Admin: 03/12/17 22:55 Dose: 5,000 unit Ertapenem 1 gm/ Sodium (Chloride) 100 mls @ 200 mls/hr IVPB DAILY [facility] PRN Reason: Protocol Last Admin: 03/12/17 10:13 Dose: 200 mls/hr Levetiracetam (Keppra Oral Solution -) 750 mg PO BID [facility] Last Admin: 03/12/17 22:55 Dose: 750 mg Multivitamins/Minerals/Vitamin C (Tab-A-Vit -) 1 tab PO DAILY [facility] Last Admin: 03/12/17 10:14 Dose: 1 tab Quetiapine Fumarate (Seroquel -) 12.5 mg PO BID [facility] Last Admin: 03/12/17 22:55 Dose: 12.5 mg PHYSICAL EXAMINATION Vital Signs Temperature 97.7 F 03/13/17 06:07 Pulse Rate 52 L 03/13/17 06:07 Respiratory Rate 20 03/13/17 06:07 Blood Pressure 158/68 03/13/17 06:07 O2 Sat by Pulse Oximetry (%) 98 03/12/17 09:00 GENERAL: Awake, alert, and disoriented, in no acute distress. follows with her eyes HEAD: Normal with no signs of trauma. EYES: Pupils equal, round and reactive to light, extraocular movements intact, sclera anicteric, conjunctiva clear. No lid lag. EARS, NOSE, THROAT: Ears normal, nares patent, oropharynx clear without exudates. Moist mucous membranes. NECK: Normal range of motion, supple without lymphadenopathy, JVD, or masses. LUNGS: Breath sounds equal, clear to auscultation bilaterally. No wheezes, and no crackles. No accessory muscle use. HEART: Regular rate and rhythm, normal S1 and S2 without murmur, rub or gallop. ABDOMEN: Soft, nontender, not distended, normoactive bowel sounds, no guarding, no rebound, no masses. No hepatomegaly or splenomegaly. MUSCULOSKELETAL: Normal range of motion at all joints. No bony deformities or tenderness. No CVA tenderness. UPPER EXTREMITIES: 2+ pulses, warm, well-perfused. No cyanosis. No clubbing. No peripheral edema. LOWER EXTREMITIES: 2+ pulses, warm, well-perfused. No calf tenderness. No peripheral edema. NEUROLOGICAL: Cranial nerves intact, grossly moving ext, not cooperative on confrontation, sensory intact PSYCHIATRIC: Cooperative. Good eye contact. Appropriate mood and affect. SKIN: Warm, dry, normal turgor, no rashes or lesions noted, normal capillary refill. CBCD WBC 6.2 K/mm3 (4.0-10.0) D 03/13/17 06:30 RBC 4.17 M/mm3 (3.60-5.2) 03/13/17 06:30 Hgb 13.3 GM/dL (10.7-15.3) D 03/13/17 06:30 Hct 41.9 % (32.4-45.2) 03/13/17 06:30 MCV 100.4 fl (80-96) H 03/13/17 06:30 MCHC 31.7 g/dl (32.0-36.0) L 03/13/17 06:30 RDW 12.7 % (11.6-15.6) 03/13/17 06:30 Plt Count 221 K/MM3 (134-434) 03/13/17 06:30 MPV 9.3 fl (7.5-11.1) 03/13/17 06:30 CMP Sodium 142 mmol/L (136-145) 03/13/17 06:30 Potassium 4.6 mmol/L (3.5-5.1) 03/13/17 06:30 Chloride 108 mmol/L (98-107) H 03/13/17 06:30 Carbon Dioxide 26 mmol/L (21-32) 03/13/17 06:30 Anion Gap 8 (8-16) 03/13/17 06:30 BUN 18 mg/dL (7-18) 03/13/17 06:30 Creatinine 0.4 mg/dL (0.55-1.02) L 03/13/17 06:30 Creat Clearance w eGFR > 60 (>60) 03/08/17 06:00 Calcium 9.3 mg/dL (8.5-10.1) 03/13/17 06:30 Total Bilirubin 0.3 mg/dL (0.2-1.0) 03/08/17 06:00 AST 12 U/L (15-37) L 03/08/17 06:00 ALT 10 U/L (12-78) L 03/08/17 06:00 Alkaline Phosphatase 131 U/L (45-117) H 03/08/17 06:00 Total Protein 7.1 g/dl (6.4-8.2) 03/08/17 06:00 Albumin 2.5 g/dl (3.4-5.0) L 03/08/17 06:00 Radiology Reports: CT head: IMPRESSION: An approximately 4. 4 x 4 x 3.7 cm left frontoparietal dural based mass lesion is identified with associated calvarial erosion as discussed above. 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 A 1 cm nonexpansile nonspecific focus is seen within the right parietal calvarium laterally at the high convexity level. Additional evaluation utilizing whole-body radionuclide bone scan including SPECT may be considered. Alternatively comparison with previous studies may be performed if available from a different facility. Paranasal sinus disease as discussed above. ASSESSMENT/PLAN: 86 year old female with a past medical history of alzheimer's Dementia with psychosis, TIA, ischemic heart disease who was sent from the [place] with AMS/ unresponsive. CT head completed and was impressive for 4. 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 Patient also admitted for UTI No seizure like activity for this admission. Depending on goals of care, next step would be to have MRI brain with contrast. However, given age and current level of functionality, unclear that benefit would outweigh risk if surgical intervention were to be considered. Family would need to decide on they would want to pursue possible surgical intervention Spoke to daughter in law previously and she or son would get back to us Increased Keppra to 750mg twice daily to provide further seizure protection. On Decadron for now. Reduced to 2mg Q6hrs. Can continue seroquel and Aricept. Acute mental status deterioration possible more due to UTI which is being treated with Ceftriaxone and improving Depending on family wishes, NSGY consult may be indicated if they would like to pursue further intervention after MRI but no clarity yet
[2017-03-13] MEDS ORDERED: PT OWN MED DRAWER 7, Y5N ONE (09:45)
[2017-03-13] MEDS: MULTIVITAMINS (DAILY MVI) TABLET (FP) PO SCH (09:46)
[2017-03-13] MEDS: CHOLECALCIFEROL (VITAMIN D3) 1,000 UNIT TABLET (FP) PO SCH (09:46)
[2017-03-13] MEDS: CLOPIDOGREL BISULFATE 75 MG TABLET (FP) PO SCH (09:46)
[2017-03-13] MEDS: QUEtiapine FUMARATE 25 MG TABLET (FP) PO SCH ×2 (09:46→21:25)
[2017-03-13] MEDS: levETIRAcetam 500 MG/5 ML ORAL SOLUTION (UNIT-DOSE CUPS) PO SCH ×2 (09:47→22:14)
[2017-03-13] MEDS: ERTAPENEM SODIUM 1 GM in SODIUM CHLORIDE 100 ML IVPB SCH (09:59)
[2017-03-13] MEDS: HEPARIN NA (PORCINE) 5,000 UNITS/ML 1ML VIAL SQ SCH ×2 (09:59→21:23)
--- NOTE | 2017-03-13 11:55 | PN ---
Progress Note, Physician Chief Complaint: Unable to obtain today, patient non-verbal - Current Medication List Current Medications: Active Medications Acetaminophen (Tylenol -) 650 mg PO Q6H PRN PRN Reason: PAIN Last Admin: 03/10/17 21:03 Dose: 650 mg Cholecalciferol (Vitamin D3 -) 1,000 unit PO DAILY [facility] Last Admin: 03/13/17 09:46 Dose: 1,000 unit Clopidogrel Bisulfate (Plavix -) 75 mg PO DAILY [facility] Last Admin: 03/13/17 09:46 Dose: 75 mg Dexamethasone Sodium Phosphate (Decadron Injection -) 2 mg IVPUSH Q6H-IV [facility] Last Admin: 03/13/17 08:39 Dose: 2 mg Docusate Sodium (Colace -) 200 mg PO HS [facility] Last Admin: 03/12/17 22:56 Dose: 200 mg Donepezil HCl (Aricept -) 10 mg PO HS [facility] Last Admin: 03/12/17 22:56 Dose: 10 mg Heparin Sodium (Porcine) (Heparin -) 5,000 unit SQ BID [facility] Last Admin: 03/13/17 09:59 Dose: 5,000 unit Ertapenem 1 gm/ Sodium (Chloride) 100 mls @ 200 mls/hr IVPB DAILY [facility] PRN Reason: Protocol Last Admin: 03/13/17 09:59 Dose: 200 mls/hr Levetiracetam (Keppra Oral Solution -) 750 mg PO BID [facility] Last Admin: 03/13/17 09:47 Dose: 750 mg Multivitamins/Minerals/Vitamin C (Tab-A-Vit -) 1 tab PO DAILY [facility] Last Admin: 03/13/17 09:46 Dose: 1 tab Quetiapine Fumarate (Seroquel -) 12.5 mg PO BID [facility] Last Admin: 03/13/17 09:46 Dose: 12.5 mg - Objective Vital Signs: Vital Signs Temperature 36.5 C 03/13/17 06:07 Pulse Rate 52 L 03/13/17 06:07 Respiratory Rate 20 03/13/17 06:07 Blood Pressure 158/68 03/13/17 06:07 O2 Sat by Pulse Oximetry (%) 98 03/12/17 09:00 Constitutional: Yes: Well Nourished, No Distress, Calm Cardiovascular: Yes: Regular Rate and Rhythm. No: Gallop, Murmur, Rub Respiratory: Yes: Regular, CTA Bilaterally. No: Rales, Rhonchi, Wheezes Gastrointestinal: Yes: Normal Bowel Sounds, Soft. No: Distention, Tenderness Extremities: Yes: WNL Edema: No Labs: CBC, BMP 03/13/17 06:30 03/13/17 06:30 INR, PTT INR 1.22 (0.82-1.09) H 03/05/17 20:05 Problem List - Problems (1) Acute metabolic encephalopathy Code(s): G93.41 - METABOLIC ENCEPHALOPATHY (2) Brain mass Code(s): G93.9 - DISORDER OF BRAIN, UNSPECIFIED (3) UTI (urinary tract infection) Code(s): N39.0 - URINARY TRACT INFECTION, SITE NOT SPECIFIED (4) Dementia Code(s): F03.90 - UNSPECIFIED DEMENTIA WITHOUT BEHAVIORAL DISTURBANCE (5) History of seizure Code(s): Z87.898 - PERSONAL HISTORY OF OTHER SPECIFIED CONDITIONS Assessment/Plan (1) Acute metabolic encephalopathy Assessment/Plan: -multifactorial -continue treating UTI -suspect patient is now at baseline Code(s): G93.41 - METABOLIC ENCEPHALOPATHY (2) Brain mass Assessment/Plan: -continue dexamethasone, decrease per neurology -son called and case discussed -no further workup currently, however will need to have goals of care and code status addressed at [facility] Code(s): G93.9 - DISORDER OF BRAIN, UNSPECIFIED (3) UTI (urinary tract infection) Assessment/Plan: -now growing ESBL e coli -ID following and case discussed -continue ertapenem, will need 14 days total -plan for PICC line tomorrow and outpatient antibiotics Code(s): N39.0 - URINARY TRACT INFECTION, SITE NOT SPECIFIED (4) Dementia Assessment/Plan: -as above Code(s): F03.90 - UNSPECIFIED DEMENTIA WITHOUT BEHAVIORAL DISTURBANCE (5) History of seizure Assessment/Plan: -case d/w neurology -continue IV keppra Code(s): Z87.898 - PERSONAL HISTORY OF OTHER SPECIFIED CONDITIONS Dispo -spoke with son, no further workup of brain mass at this time -made aware patient's condition will continue to deteriorate over time and what to expect -will need further discussion at [facility] concerning code status and goals of care
--- NOTE | 2017-03-13 15:26 | PN ---
Progress Note, Physician History of Present Illness: patient stable no new issues non verbal - Current Medication List Current Medications: Active Medications Acetaminophen (Tylenol -) 650 mg PO Q6H PRN PRN Reason: PAIN Last Admin: 03/10/17 21:03 Dose: 650 mg Cholecalciferol (Vitamin D3 -) 1,000 unit PO DAILY [facility] Last Admin: 03/13/17 09:46 Dose: 1,000 unit Clopidogrel Bisulfate (Plavix -) 75 mg PO DAILY [facility] Last Admin: 03/13/17 09:46 Dose: 75 mg Dexamethasone Sodium Phosphate (Decadron Injection -) 2 mg IVPUSH Q6H-IV [facility] Last Admin: 03/13/17 14:05 Dose: 2 mg Docusate Sodium (Colace -) 200 mg PO HS [facility] Last Admin: 03/12/17 22:56 Dose: 200 mg Donepezil HCl (Aricept -) 10 mg PO HS [facility] Last Admin: 03/12/17 22:56 Dose: 10 mg Heparin Sodium (Porcine) (Heparin -) 5,000 unit SQ BID [facility] Last Admin: 03/13/17 09:59 Dose: 5,000 unit Ertapenem 1 gm/ Sodium (Chloride) 100 mls @ 200 mls/hr IVPB DAILY [facility] PRN Reason: Protocol Last Admin: 03/13/17 09:59 Dose: 200 mls/hr Levetiracetam (Keppra Oral Solution -) 750 mg PO BID [facility] Last Admin: 03/13/17 09:47 Dose: 750 mg Multivitamins/Minerals/Vitamin C (Tab-A-Vit -) 1 tab PO DAILY [facility] Last Admin: 03/13/17 09:46 Dose: 1 tab Quetiapine Fumarate (Seroquel -) 12.5 mg PO BID [facility] Last Admin: 03/13/17 09:46 Dose: 12.5 mg - Objective Vital Signs: Vital Signs Temperature 98.2 F 03/13/17 15:20 Pulse Rate 53 L 03/13/17 15:20 Respiratory Rate 18 03/13/17 15:20 Blood Pressure 158/69 03/13/17 15:20 O2 Sat by Pulse Oximetry (%) 98 03/13/17 09:00 Constitutional: Yes: No Distress, Calm Cardiovascular: Yes: Regular Rate and Rhythm Respiratory: Yes: Regular, CTA Bilaterally Gastrointestinal: Yes: Normal Bowel Sounds, Soft Musculoskeletal: Yes: WNL Extremities: Yes: WNL Neurological: Yes: Other Psychiatric: Yes: Other Labs: CBC, BMP 03/13/17 06:30 03/13/17 06:30 INR, PTT INR 1.22 (0.82-1.09) H 03/05/17 20:05 Assessment/Plan Problem List - Problems (1) Acute metabolic encephalopathy Code(s): G93.41 - METABOLIC ENCEPHALOPATHY (2) Brain mass Code(s): G93.9 - DISORDER OF BRAIN, UNSPECIFIED (3) UTI (urinary tract infection) Code(s): N39.0 - URINARY TRACT INFECTION, SITE NOT SPECIFIED (4) Dementia Code(s): F03.90 - UNSPECIFIED DEMENTIA WITHOUT BEHAVIORAL DISTURBANCE (5) History of seizure Code(s): Z87.898 - PERSONAL HISTORY OF OT plan continue current abx close watch patient will need a total of 14 abx rest as per primary
[2017-03-13] MEDS ORDERED: PICC LINE 8 ML FLUSH PROTOCOL IVPUSH PRN (17:35)
[2017-03-13] MEDS: DONEPEZIL HCL 10 MG TABLET (FP) PO SCH (21:23)
[2017-03-13] MEDS: DOCUSATE SODIUM 100 MG CAPSULE (FP) PO SCH (21:23)
[2017-03-14] MEDS ORDERED: PT OWN MED DRAWER 7, Y5N ONE (02:10)
[2017-03-14] MEDS: DEXAMETHASONE SOD PHOSPHATE 4 MG/1 ML VIAL IVPUSH SCH ×4 (02:22→20:11)
[2017-03-14 08:53] LABS: BASO % 0.1 % (0-2.0); HEMATOCRIT 38.9 % (32.4-45.2); HEMOGLOBIN 12.2 GM/dL (10.7-15.3); MCH 31.4 pg (25.7-33.7); MCHC 31.3 g/dl (32.0-36.0); MEAN CELL VOLUME 100.5 fl (80-96); MEAN PLT VOLUME 8.9 fl (7.5-11.1); MONO % 4.5 % (3.8-10.2); NEUT % 90.4 % (42.8-82.8); PLATELET COUNT 228 K/MM3 (134-434); RBC 3.87 M/mm3 (3.60-5.2); RDW 12.6 % (11.6-15.6)
[2017-03-14 09:14] LABS: ANION GAP 5 (8-16); BLOOD UREA NITROGEN 21 mg/dL (7-18); CALCIUM 8.9 mg/dL (8.5-10.1); CHLORIDE 107 mmol/L (98-107); CO2 31 mmol/L (21-32); CREATININE 0.5 mg/dL (0.55-1.02); GLUCOSE,RANDOM 129 mg/dL (74-106); MAGNESIUM 2.5 mg/dL (1.8-2.4); PHOSPHOROUS 2.9 mg/dL (2.5-4.9); POTASSIUM 4.3 mmol/L (3.5-5.1); SODIUM 143 mmol/L (136-145)
--- NOTE | 2017-03-14 09:59 | PN ---
Progress Note (short form) - Note Progress Note: Neurology HISTORY OF PRESENT ILLNESS: This is an 86 year old female with a past medical history of alzheimer's Dementia with psychosis, TIA, ischemic heart disease who was sent from the [place] with AMS/unresponsive. CT head completed and was impressive for 4. 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 Patient also admitted for UTI and on Keppra for seizures, 500mg twice daily. No seizure like activity for this admission. Per notes, hospitalist spoke to son and does not want further intervention regarding this. However, still to clarify goals of care. Remains stable, open eyes and tracks examiner. F Active Medications Acetaminophen (Tylenol -) 650 mg PO Q6H PRN PRN Reason: PAIN Last Admin: 03/10/17 21:03 Dose: 650 mg Cholecalciferol (Vitamin D3 -) 1,000 unit PO DAILY [facility] Last Admin: 03/13/17 09:46 Dose: 1,000 unit Clopidogrel Bisulfate (Plavix -) 75 mg PO DAILY [facility] Last Admin: 03/13/17 09:46 Dose: 75 mg Dexamethasone Sodium Phosphate (Decadron Injection -) 2 mg IVPUSH Q6H-IV [facility] Last Admin: 03/14/17 02:22 Dose: 2 mg Docusate Sodium (Colace -) 200 mg PO HS [facility] Last Admin: 03/13/17 21:23 Dose: 200 mg Donepezil HCl (Aricept -) 10 mg PO HS [facility] Last Admin: 03/13/17 21:23 Dose: 10 mg Heparin Sodium (Porcine) (Heparin -) 5,000 unit SQ BID [facility] Last Admin: 03/13/17 21:23 Dose: 5,000 unit IV Flush (Picc Line Flush) 8 ml IVPUSH PRN PRN PRN Reason: Protocol Ertapenem 1 gm/ Sodium (Chloride) 100 mls @ 200 mls/hr IVPB DAILY [facility] PRN Reason: Protocol Last Admin: 03/13/17 09:59 Dose: 200 mls/hr Levetiracetam (Keppra Oral Solution -) 750 mg PO BID [facility] Last Admin: 03/13/17 22:14 Dose: 750 mg Multivitamins/Minerals/Vitamin C (Tab-A-Vit -) 1 tab PO DAILY [facility] Last Admin: 03/13/17 09:46 Dose: 1 tab Quetiapine Fumarate (Seroquel -) 12.5 mg PO BID [facility] Last Admin: 03/13/17 21:25 Dose: 12.5 mg PHYSICAL EXAMINATION Vital Signs Temperature 98.1 F 03/14/17 07:25 Pulse Rate 54 L 03/14/17 07:25 Respiratory Rate 20 03/14/17 07:25 Blood Pressure 136/76 03/14/17 07:25 O2 Sat by Pulse Oximetry (%) 98 03/13/17 21:00 GENERAL: Awake, alert, and disoriented, in no acute distress. follows with her eyes HEAD: Normal with no signs of trauma. EYES: Pupils equal, round and reactive to light, extraocular movements intact, sclera anicteric, conjunctiva clear. No lid lag. EARS, NOSE, THROAT: Ears normal, nares patent, oropharynx clear without exudates. Moist mucous membranes. NECK: Normal range of motion, supple without lymphadenopathy, JVD, or masses. LUNGS: Breath sounds equal, clear to auscultation bilaterally. No wheezes, and no crackles. No accessory muscle use. HEART: Regular rate and rhythm, normal S1 and S2 without murmur, rub or gallop. ABDOMEN: Soft, nontender, not distended, normoactive bowel sounds, no guarding, no rebound, no masses. No hepatomegaly or splenomegaly. MUSCULOSKELETAL: Normal range of motion at all joints. No bony deformities or tenderness. No CVA tenderness. UPPER EXTREMITIES: 2+ pulses, warm, well-perfused. No cyanosis. No clubbing. No peripheral edema. LOWER EXTREMITIES: 2+ pulses, warm, well-perfused. No calf tenderness. No peripheral edema. NEUROLOGICAL: Cranial nerves intact, grossly moving ext, not cooperative on confrontation, sensory intact PSYCHIATRIC: Cooperative. Good eye contact. Appropriate mood and affect. SKIN: Warm, dry, normal turgor, no rashes or lesions noted, normal capillary refill. CBCD WBC 9.0 K/mm3 (4.0-10.0) D 03/14/17 08:23 RBC 3.87 M/mm3 (3.60-5.2) 03/14/17 08:23 Hgb 12.2 GM/dL (10.7-15.3) 03/14/17 08:23 Hct 38.9 % (32.4-45.2) 03/14/17 08:23 MCV 100.5 fl (80-96) H 03/14/17 08:23 MCHC 31.3 g/dl (32.0-36.0) L 03/14/17 08:23 RDW 12.6 % (11.6-15.6) 03/14/17 08:23 Plt Count 228 K/MM3 (134-434) 03/14/17 08:23 MPV 8.9 fl (7.5-11.1) 03/14/17 08:23 CMP Sodium 143 mmol/L (136-145) 03/14/17 08:23 Potassium 4.3 mmol/L (3.5-5.1) 03/14/17 08:23 Chloride 107 mmol/L (98-107) 03/14/17 08:23 Carbon Dioxide 31 mmol/L (21-32) 03/14/17 08:23 Anion Gap 5 (8-16) L 03/14/17 08:23 BUN 21 mg/dL (7-18) H 03/14/17 08:23 Creatinine 0.5 mg/dL (0.55-1.02) L D 03/14/17 08:23 Creat Clearance w eGFR > 60 (>60) 03/08/17 06:00 Calcium 8.9 mg/dL (8.5-10.1) 03/14/17 08:23 Total Bilirubin 0.3 mg/dL (0.2-1.0) 03/08/17 06:00 AST 12 U/L (15-37) L 03/08/17 06:00 ALT 10 U/L (12-78) L 03/08/17 06:00 Alkaline Phosphatase 131 U/L (45-117) H 03/08/17 06:00 Total Protein 7.1 g/dl (6.4-8.2) 03/08/17 06:00 Albumin 2.5 g/dl (3.4-5.0) L 03/08/17 06:00 Radiology Reports: CT head: IMPRESSION: An approximately 4. 4 x 4 x 3.7 cm left frontoparietal dural based mass lesion is identified with associated calvarial erosion as discussed above. 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 A 1 cm nonexpansile nonspecific focus is seen within the right parietal calvarium laterally at the high convexity level. Additional evaluation utilizing whole-body radionuclide bone scan including SPECT may be considered. Alternatively comparison with previous studies may be performed if available from a different facility. Paranasal sinus disease as discussed above. ASSESSMENT/PLAN: 86 year old female with a past medical history of alzheimer's Dementia with psychosis, TIA, ischemic heart disease who was sent from the [place] with AMS/ unresponsive. CT head completed and was impressive for 4. 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 Patient also admitted for UTI No seizure like activity for this admission. Depending on goals of care, next step would be to have MRI brain with contrast. However, given age and current level of functionality, unclear that benefit would outweigh risk if surgical intervention were to be considered. Family chose to defer on further imaging and intervention at this time Keppra continued at 750mg twice daily to provide further seizure protection. On Decadron for now. Reduced to 2mg Q6hrs. Depending on goals of care, further reduction to 1mg q6hrs tomorrow and then discontinue medication in 3 days should be considered Can continue seroquel and Aricept.
[2017-03-14] MEDS: CLOPIDOGREL BISULFATE 75 MG TABLET (FP) PO SCH (10:08)
[2017-03-14] MEDS: CHOLECALCIFEROL (VITAMIN D3) 1,000 UNIT TABLET (FP) PO SCH (10:08)
[2017-03-14] MEDS: QUEtiapine FUMARATE 25 MG TABLET (FP) PO SCH ×2 (10:08→22:45)
[2017-03-14] MEDS: MULTIVITAMINS (DAILY MVI) TABLET (FP) PO SCH (10:08)
[2017-03-14] MEDS: HEPARIN NA (PORCINE) 5,000 UNITS/ML 1ML VIAL SQ SCH ×2 (10:08→22:44)
[2017-03-14] MEDS: ERTAPENEM SODIUM 1 GM in SODIUM CHLORIDE 100 ML IVPB SCH (10:10)
[2017-03-14] MEDS: levETIRAcetam 500 MG/5 ML ORAL SOLUTION (UNIT-DOSE CUPS) PO SCH ×2 (10:11→23:17)
--- NOTE | 2017-03-14 11:19 | PN ---
Progress Note, Physician History of Present Illness: stable non verbal - Current Medication List Current Medications: Active Medications Acetaminophen (Tylenol -) 650 mg PO Q6H PRN PRN Reason: PAIN Last Admin: 03/10/17 21:03 Dose: 650 mg Cholecalciferol (Vitamin D3 -) 1,000 unit PO DAILY [facility] Last Admin: 03/14/17 10:08 Dose: 1,000 unit Clopidogrel Bisulfate (Plavix -) 75 mg PO DAILY [facility] Last Admin: 03/14/17 10:08 Dose: 75 mg Dexamethasone Sodium Phosphate (Decadron Injection -) 2 mg IVPUSH Q6H-IV [facility] Last Admin: 03/14/17 09:07 Dose: 2 mg Docusate Sodium (Colace -) 200 mg PO HS [facility] Last Admin: 03/13/17 21:23 Dose: 200 mg Donepezil HCl (Aricept -) 10 mg PO HS [facility] Last Admin: 03/13/17 21:23 Dose: 10 mg Heparin Sodium (Porcine) (Heparin -) 5,000 unit SQ BID [facility] Last Admin: 03/14/17 10:08 Dose: 5,000 unit IV Flush (Picc Line Flush) 8 ml IVPUSH PRN PRN PRN Reason: Protocol Ertapenem 1 gm/ Sodium (Chloride) 100 mls @ 200 mls/hr IVPB DAILY [facility] PRN Reason: Protocol Last Admin: 03/14/17 10:10 Dose: 200 mls/hr Levetiracetam (Keppra Oral Solution -) 750 mg PO BID [facility] Last Admin: 03/14/17 10:11 Dose: 750 mg Multivitamins/Minerals/Vitamin C (Tab-A-Vit -) 1 tab PO DAILY [facility] Last Admin: 03/14/17 10:08 Dose: 1 tab Quetiapine Fumarate (Seroquel -) 12.5 mg PO BID [facility] Last Admin: 03/14/17 10:08 Dose: 12.5 mg - Objective Vital Signs: Vital Signs Temperature 98.1 F 03/14/17 07:25 Pulse Rate 54 L 03/14/17 07:25 Respiratory Rate 20 03/14/17 07:25 Blood Pressure 136/76 03/14/17 07:25 O2 Sat by Pulse Oximetry (%) 98 03/13/17 21:00 Constitutional: Yes: No Distress, Calm Cardiovascular: Yes: Regular Rate and Rhythm Respiratory: Yes: Regular Gastrointestinal: Yes: Normal Bowel Sounds, Soft Musculoskeletal: Yes: WNL Extremities: Yes: Other Neurological: Yes: Alert, Other Psychiatric: Yes: Other Labs: CBC, BMP 03/14/17 08:23 03/14/17 08:23 INR, PTT INR 1.22 (0.82-1.09) H 03/05/17 20:05 Assessment/Plan Problem List - Problems (1) Acute metabolic encephalopathy Code(s): G93.41 - METABOLIC ENCEPHALOPATHY (2) Brain mass Code(s): G93.9 - DISORDER OF BRAIN, UNSPECIFIED (3) UTI (urinary tract infection) Code(s): N39.0 - URINARY TRACT INFECTION, SITE NOT SPECIFIED (4) Dementia Code(s): F03.90 - UNSPECIFIED DEMENTIA WITHOUT BEHAVIORAL DISTURBANCE (5) History of seizure Code(s): Z87.898 - PERSONAL HISTORY OF OT plan continue current abx 14 days total hydration rest as per primary
--- NOTE | 2017-03-14 11:28 | PN ---
Progress Note, Physician Chief Complaint: Unable to obtain today, patient non-verbal - Current Medication List Current Medications: Active Medications Acetaminophen (Tylenol -) 650 mg PO Q6H PRN PRN Reason: PAIN Last Admin: 03/10/17 21:03 Dose: 650 mg Cholecalciferol (Vitamin D3 -) 1,000 unit PO DAILY [facility] Last Admin: 03/14/17 10:08 Dose: 1,000 unit Clopidogrel Bisulfate (Plavix -) 75 mg PO DAILY [facility] Last Admin: 03/14/17 10:08 Dose: 75 mg Dexamethasone Sodium Phosphate (Decadron Injection -) 2 mg IVPUSH Q6H-IV [facility] Last Admin: 03/14/17 09:07 Dose: 2 mg Docusate Sodium (Colace -) 200 mg PO HS [facility] Last Admin: 03/13/17 21:23 Dose: 200 mg Donepezil HCl (Aricept -) 10 mg PO HS [facility] Last Admin: 03/13/17 21:23 Dose: 10 mg Heparin Sodium (Porcine) (Heparin -) 5,000 unit SQ BID [facility] Last Admin: 03/14/17 10:08 Dose: 5,000 unit IV Flush (Picc Line Flush) 8 ml IVPUSH PRN PRN PRN Reason: Protocol Ertapenem 1 gm/ Sodium (Chloride) 100 mls @ 200 mls/hr IVPB DAILY [facility] PRN Reason: Protocol Last Admin: 03/14/17 10:10 Dose: 200 mls/hr Levetiracetam (Keppra Oral Solution -) 750 mg PO BID [facility] Last Admin: 03/14/17 10:11 Dose: 750 mg Multivitamins/Minerals/Vitamin C (Tab-A-Vit -) 1 tab PO DAILY [facility] Last Admin: 03/14/17 10:08 Dose: 1 tab Quetiapine Fumarate (Seroquel -) 12.5 mg PO BID [facility] Last Admin: 03/14/17 10:08 Dose: 12.5 mg - Objective Vital Signs: Vital Signs Temperature 36.7 C 03/14/17 07:25 Pulse Rate 54 L 03/14/17 07:25 Respiratory Rate 20 03/14/17 07:25 Blood Pressure 136/76 03/14/17 07:25 O2 Sat by Pulse Oximetry (%) 98 03/13/17 21:00 Constitutional: Yes: Well Nourished, No Distress, Calm Cardiovascular: Yes: Regular Rate and Rhythm. No: Gallop, Murmur, Rub Respiratory: Yes: Regular, CTA Bilaterally. No: Rales, Rhonchi, Wheezes Gastrointestinal: Yes: Normal Bowel Sounds, Soft. No: Distention, Tenderness Extremities: Yes: WNL Edema: No Labs: CBC, BMP 03/14/17 08:23 03/14/17 08:23 INR, PTT INR 1.22 (0.82-1.09) H 03/05/17 20:05 Problem List - Problems (1) Acute metabolic encephalopathy Code(s): G93.41 - METABOLIC ENCEPHALOPATHY (2) Brain mass Code(s): G93.9 - DISORDER OF BRAIN, UNSPECIFIED (3) UTI (urinary tract infection) Code(s): N39.0 - URINARY TRACT INFECTION, SITE NOT SPECIFIED (4) Dementia Code(s): F03.90 - UNSPECIFIED DEMENTIA WITHOUT BEHAVIORAL DISTURBANCE (5) History of seizure Code(s): Z87.898 - PERSONAL HISTORY OF OTHER SPECIFIED CONDITIONS Assessment/Plan (1) Acute metabolic encephalopathy Assessment/Plan: -multifactorial -continue treating UTI -suspect patient is now at baseline Code(s): G93.41 - METABOLIC ENCEPHALOPATHY (2) Brain mass Assessment/Plan: -continue dexamethasone, decrease per neurology -son called and case discussed -no further workup currently, however will need to have goals of care and code status addressed at [facility] Code(s): G93.9 - DISORDER OF BRAIN, UNSPECIFIED (3) UTI (urinary tract infection) Assessment/Plan: -now growing ESBL e coli -ID following and case discussed -continue ertapenem, will need 14 days total -awaiting approval for outpatient antibiotics Code(s): N39.0 - URINARY TRACT INFECTION, SITE NOT SPECIFIED (4) Dementia Assessment/Plan: -as above Code(s): F03.90 - UNSPECIFIED DEMENTIA WITHOUT BEHAVIORAL DISTURBANCE (5) History of seizure Assessment/Plan: -continue oral keppra Code(s): Z87.898 - PERSONAL HISTORY OF OTHER SPECIFIED CONDITIONS Dispo -spoke with son, no further workup of brain mass at this time -made aware patient's condition will continue to deteriorate over time and what to expect -will need further discussion at SNF concerning code status and goals of care
[2017-03-14] MEDS: DONEPEZIL HCL 10 MG TABLET (FP) PO SCH (22:44)
[2017-03-14] MEDS: DOCUSATE SODIUM 100 MG CAPSULE (FP) PO SCH (22:44)
[2017-03-15] MEDS: DEXAMETHASONE SOD PHOSPHATE 4 MG/1 ML VIAL IVPUSH SCH ×4 (02:12→21:03)
[2017-03-15 08:08] LABS: ANION GAP 8 (8-16); BLOOD UREA NITROGEN 20 mg/dL (7-18); CALCIUM 8.8 mg/dL (8.5-10.1); CHLORIDE 106 mmol/L (98-107); CO2 28 mmol/L (21-32); CREATININE 0.4 mg/dL (0.55-1.02); GLUCOSE,RANDOM 117 mg/dL (74-106); MAGNESIUM 2.3 mg/dL (1.8-2.4); PHOSPHOROUS 2.9 mg/dL (2.5-4.9); POTASSIUM 4.6 mmol/L (3.5-5.1); SODIUM 142 mmol/L (136-145)
[2017-03-15 08:21] LABS: BASO % 0.2 % (0-2.0); EOS % 0.1 % (0-4.5); HEMATOCRIT 37.6 % (32.4-45.2); HEMOGLOBIN 11.9 GM/dL (10.7-15.3); LYMPH % 6.9 % (8-40); MCH 31.8 pg (25.7-33.7); MCHC 31.8 g/dl (32.0-36.0); MEAN CELL VOLUME 100.2 fl (80-96); MEAN PLT VOLUME 9.3 fl (7.5-11.1); MONO % 2.8 % (3.8-10.2); PLATELET COUNT 212 K/MM3 (134-434); RBC 3.75 M/mm3 (3.60-5.2); RDW 13.1 % (11.6-15.6); WHITE BLOOD COUNT 6.8 K/mm3 (4.0-10.0)
--- NOTE | 2017-03-15 09:37 | PN ---
Progress Note (short form) - Note Progress Note: Neurology HISTORY OF PRESENT ILLNESS: This is an 86 year old female with a past medical history of alzheimer's Dementia with psychosis, TIA, ischemic heart disease who was sent from the [place] with AMS/unresponsive. CT head completed and was impressive for 4. 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 Patient also admitted for UTI and on Keppra for seizures, 500mg twice daily. No seizure like activity for this admission. Per notes, hospitalist spoke to son and does not want further intervention regarding this. Nonverbal, family to decide goals of care at SNF. For transfer back to [facility] when able. Active Medications Acetaminophen (Tylenol -) 650 mg PO Q6H PRN PRN Reason: PAIN Last Admin: 03/10/17 21:03 Dose: 650 mg Cholecalciferol (Vitamin D3 -) 1,000 unit PO DAILY [facility] Last Admin: 03/14/17 10:08 Dose: 1,000 unit Clopidogrel Bisulfate (Plavix -) 75 mg PO DAILY [facility] Last Admin: 03/14/17 10:08 Dose: 75 mg Dexamethasone Sodium Phosphate (Decadron Injection -) 2 mg IVPUSH Q6H-IV [facility] Last Admin: 03/15/17 02:12 Dose: 2 mg Docusate Sodium (Colace -) 200 mg PO HS [facility] Last Admin: 03/14/17 22:44 Dose: 200 mg Donepezil HCl (Aricept -) 10 mg PO HS [facility] Last Admin: 03/14/17 22:44 Dose: 10 mg Heparin Sodium (Porcine) (Heparin -) 5,000 unit SQ BID [facility] Last Admin: 03/14/17 22:44 Dose: 5,000 unit IV Flush (Picc Line Flush) 8 ml IVPUSH PRN PRN PRN Reason: Protocol Ertapenem 1 gm/ Sodium (Chloride) 100 mls @ 200 mls/hr IVPB DAILY [facility] PRN Reason: Protocol Last Admin: 03/14/17 10:10 Dose: 200 mls/hr Levetiracetam (Keppra Oral Solution -) 750 mg PO BID [facility] Last Admin: 03/14/17 23:17 Dose: 750 mg Multivitamins/Minerals/Vitamin C (Tab-A-Vit -) 1 tab PO DAILY [facility] Last Admin: 03/14/17 10:08 Dose: 1 tab Quetiapine Fumarate (Seroquel -) 12.5 mg PO BID [facility] Last Admin: 03/14/17 22:45 Dose: 12.5 mg PHYSICAL EXAMINATION Vital Signs Temperature 98 F 03/15/17 06:21 Pulse Rate 58 L 03/15/17 06:21 Respiratory Rate 20 03/15/17 06:21 Blood Pressure 162/98 03/15/17 06:21 O2 Sat by Pulse Oximetry (%) 98 03/14/17 21:00 GENERAL: Awake, alert, and disoriented, in no acute distress. follows with her eyes HEAD: Normal with no signs of trauma. EYES: Pupils equal, round and reactive to light, extraocular movements intact, sclera anicteric, conjunctiva clear. No lid lag. EARS, NOSE, THROAT: Ears normal, nares patent, oropharynx clear without exudates. Moist mucous membranes. NECK: Normal range of motion, supple without lymphadenopathy, JVD, or masses. LUNGS: Breath sounds equal, clear to auscultation bilaterally. No wheezes, and no crackles. No accessory muscle use. HEART: Regular rate and rhythm, normal S1 and S2 without murmur, rub or gallop. ABDOMEN: Soft, nontender, not distended, normoactive bowel sounds, no guarding, no rebound, no masses. No hepatomegaly or splenomegaly. MUSCULOSKELETAL: Normal range of motion at all joints. No bony deformities or tenderness. No CVA tenderness. UPPER EXTREMITIES: 2+ pulses, warm, well-perfused. No cyanosis. No clubbing. No peripheral edema. LOWER EXTREMITIES: 2+ pulses, warm, well-perfused. No calf tenderness. No peripheral edema. NEUROLOGICAL: Cranial nerves intact, grossly moving ext, not cooperative on confrontation, sensory intact PSYCHIATRIC: Cooperative. Good eye contact. Appropriate mood and affect. SKIN: Warm, dry, normal turgor, no rashes or lesions noted, normal capillary refill. CBCD WBC 6.8 K/mm3 (4.0-10.0) 03/15/17 06:30 RBC 3.75 M/mm3 (3.60-5.2) 03/15/17 06:30 Hgb 11.9 GM/dL (10.7-15.3) 03/15/17 06:30 Hct 37.6 % (32.4-45.2) 03/15/17 06:30 MCV 100.2 fl (80-96) H 03/15/17 06:30 MCHC 31.8 g/dl (32.0-36.0) L 03/15/17 06:30 RDW 13.1 % (11.6-15.6) 03/15/17 06:30 Plt Count 212 K/MM3 (134-434) 03/15/17 06:30 MPV 9.3 fl (7.5-11.1) 03/15/17 06:30 CMP Sodium 142 mmol/L (136-145) 03/15/17 06:30 Potassium 4.6 mmol/L (3.5-5.1) 03/15/17 06:30 Chloride 106 mmol/L (98-107) 03/15/17 06:30 Carbon Dioxide 28 mmol/L (21-32) 03/15/17 06:30 Anion Gap 8 (8-16) 03/15/17 06:30 BUN 20 mg/dL (7-18) H 03/15/17 06:30 Creatinine 0.4 mg/dL (0.55-1.02) L 03/15/17 06:30 Creat Clearance w eGFR > 60 (>60) 03/08/17 06:00 Calcium 8.8 mg/dL (8.5-10.1) 03/15/17 06:30 Total Bilirubin 0.3 mg/dL (0.2-1.0) 03/08/17 06:00 AST 12 U/L (15-37) L 03/08/17 06:00 ALT 10 U/L (12-78) L 03/08/17 06:00 Alkaline Phosphatase 131 U/L (45-117) H 03/08/17 06:00 Total Protein 7.1 g/dl (6.4-8.2) 03/08/17 06:00 Albumin 2.5 g/dl (3.4-5.0) L 03/08/17 06:00 Radiology Reports: CT head: IMPRESSION: An approximately 4. 4 x 4 x 3.7 cm left frontoparietal dural based mass lesion is identified with associated calvarial erosion as discussed above. 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 A 1 cm nonexpansile nonspecific focus is seen within the right parietal calvarium laterally at the high convexity level. Additional evaluation utilizing whole-body radionuclide bone scan including SPECT may be considered. Alternatively comparison with previous studies may be performed if available from a different facility. Paranasal sinus disease as discussed above. ASSESSMENT/PLAN: 86 year old female with a past medical history of alzheimer's Dementia with psychosis, TIA, ischemic heart disease who was sent from the [place] with AMS/ unresponsive. CT head completed and was impressive for 4. 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 Patient also admitted for UTI No seizure like activity for this admission. Family chose to defer on further imaging and intervention at this time Keppra continued at 750mg twice daily to provide further seizure protection. On Decadron for now. Reduced to 2mg Q6hrs. 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
[2017-03-15] MEDS: HEPARIN NA (PORCINE) 5,000 UNITS/ML 1ML VIAL SQ SCH ×2 (09:45→23:09)
[2017-03-15] MEDS: MULTIVITAMINS (DAILY MVI) TABLET (FP) PO SCH (09:45)
[2017-03-15] MEDS: levETIRAcetam 500 MG/5 ML ORAL SOLUTION (UNIT-DOSE CUPS) PO SCH ×2 (09:45→23:10)
[2017-03-15] MEDS: CHOLECALCIFEROL (VITAMIN D3) 1,000 UNIT TABLET (FP) PO SCH (09:45)
[2017-03-15] MEDS: CLOPIDOGREL BISULFATE 75 MG TABLET (FP) PO SCH (09:45)
[2017-03-15] MEDS: ERTAPENEM SODIUM 1 GM in SODIUM CHLORIDE 100 ML IVPB SCH (09:47)
[2017-03-15] MEDS: QUEtiapine FUMARATE 25 MG TABLET (FP) PO SCH ×2 (09:52→23:12)
--- NOTE | 2017-03-15 10:11 | PN ---
Progress Note, Physician History of Present Illness: stable no new issues - Current Medication List Current Medications: Active Medications Acetaminophen (Tylenol -) 650 mg PO Q6H PRN PRN Reason: PAIN Last Admin: 03/10/17 21:03 Dose: 650 mg Cholecalciferol (Vitamin D3 -) 1,000 unit PO DAILY [facility] Last Admin: 03/15/17 09:45 Dose: 1,000 unit Clopidogrel Bisulfate (Plavix -) 75 mg PO DAILY [facility] Last Admin: 03/15/17 09:45 Dose: 75 mg Dexamethasone Sodium Phosphate (Decadron Injection -) 2 mg IVPUSH Q6H-IV [facility] Last Admin: 03/15/17 09:45 Dose: 2 mg Docusate Sodium (Colace -) 200 mg PO HS [facility] Last Admin: 03/14/17 22:44 Dose: 200 mg Donepezil HCl (Aricept -) 10 mg PO HS [facility] Last Admin: 03/14/17 22:44 Dose: 10 mg Heparin Sodium (Porcine) (Heparin -) 5,000 unit SQ BID [facility] Last Admin: 03/15/17 09:45 Dose: 5,000 unit IV Flush (Picc Line Flush) 8 ml IVPUSH PRN PRN PRN Reason: Protocol Ertapenem 1 gm/ Sodium (Chloride) 100 mls @ 200 mls/hr IVPB DAILY [facility] PRN Reason: Protocol Last Admin: 03/15/17 09:47 Dose: 200 mls/hr Levetiracetam (Keppra Oral Solution -) 750 mg PO BID [facility] Last Admin: 03/15/17 09:45 Dose: 750 mg Multivitamins/Minerals/Vitamin C (Tab-A-Vit -) 1 tab PO DAILY [facility] Last Admin: 03/15/17 09:45 Dose: 1 tab Quetiapine Fumarate (Seroquel -) 12.5 mg PO BID [facility] Last Admin: 03/15/17 09:52 Dose: Not Given - Objective Vital Signs: Vital Signs Temperature 98 F 03/15/17 06:21 Pulse Rate 58 L 03/15/17 06:21 Respiratory Rate 20 03/15/17 06:21 Blood Pressure 162/98 03/15/17 06:21 O2 Sat by Pulse Oximetry (%) 98 03/14/17 21:00 Constitutional: Yes: No Distress, Calm Respiratory: Yes: Regular Gastrointestinal: Yes: Normal Bowel Sounds, Soft Musculoskeletal: Yes: WNL Extremities: Yes: Other Neurological: Yes: Alert, Other (non verbal) Psychiatric: Yes: Other Labs: CBC, BMP 03/15/17 06:30 03/15/17 06:30 INR, PTT INR 1.22 (0.82-1.09) H 03/05/17 20:05 Assessment/Plan Problem List - Problems (1) Acute metabolic encephalopathy Code(s): G93.41 - METABOLIC ENCEPHALOPATHY (2) Brain mass Code(s): G93.9 - DISORDER OF BRAIN, UNSPECIFIED (3) UTI (urinary tract infection) Code(s): N39.0 - URINARY TRACT INFECTION, SITE NOT SPECIFIED (4) Dementia Code(s): F03.90 - UNSPECIFIED DEMENTIA WITHOUT BEHAVIORAL DISTURBANCE (5) History of seizure Code(s): Z87.898 - PERSONAL HISTORY OF OT plan 14 days abx total rest as per primary team
--- NOTE | 2017-03-15 11:48 | PN ---
Progress Note, Physician Chief Complaint: Unable to obtain today, patient non-verbal - Current Medication List Current Medications: Active Medications Acetaminophen (Tylenol -) 650 mg PO Q6H PRN PRN Reason: PAIN Last Admin: 03/10/17 21:03 Dose: 650 mg Cholecalciferol (Vitamin D3 -) 1,000 unit PO DAILY [facility] Last Admin: 03/15/17 09:45 Dose: 1,000 unit Clopidogrel Bisulfate (Plavix -) 75 mg PO DAILY [facility] Last Admin: 03/15/17 09:45 Dose: 75 mg Dexamethasone Sodium Phosphate (Decadron Injection -) 2 mg IVPUSH Q6H-IV [facility] Last Admin: 03/15/17 09:45 Dose: 2 mg Docusate Sodium (Colace -) 200 mg PO HS [facility] Last Admin: 03/14/17 22:44 Dose: 200 mg Donepezil HCl (Aricept -) 10 mg PO HS [facility] Last Admin: 03/14/17 22:44 Dose: 10 mg Heparin Sodium (Porcine) (Heparin -) 5,000 unit SQ BID [facility] Last Admin: 03/15/17 09:45 Dose: 5,000 unit IV Flush (Picc Line Flush) 8 ml IVPUSH PRN PRN PRN Reason: Protocol Ertapenem 1 gm/ Sodium (Chloride) 100 mls @ 200 mls/hr IVPB DAILY [facility] PRN Reason: Protocol Last Admin: 03/15/17 09:47 Dose: 200 mls/hr Levetiracetam (Keppra Oral Solution -) 750 mg PO BID [facility] Last Admin: 03/15/17 09:45 Dose: 750 mg Multivitamins/Minerals/Vitamin C (Tab-A-Vit -) 1 tab PO DAILY [facility] Last Admin: 03/15/17 09:45 Dose: 1 tab Quetiapine Fumarate (Seroquel -) 12.5 mg PO BID [facility] Last Admin: 03/15/17 09:52 Dose: Not Given - Objective Vital Signs: Vital Signs Temperature 36.8 C 03/15/17 10:00 Pulse Rate 52 L 03/15/17 10:00 Respiratory Rate 16 03/15/17 10:00 Blood Pressure 155/61 03/15/17 10:00 O2 Sat by Pulse Oximetry (%) 98 03/14/17 21:00 Constitutional: Yes: Well Nourished, No Distress, Calm Cardiovascular: Yes: Regular Rate and Rhythm. No: Gallop, Murmur, Rub Respiratory: Yes: Regular, CTA Bilaterally. No: Rales, Rhonchi, Wheezes Gastrointestinal: Yes: Normal Bowel Sounds, Soft. No: Distention, Tenderness Extremities: Yes: WNL Edema: No Labs: CBC, BMP 03/15/17 06:30 03/15/17 06:30 INR, PTT INR 1.22 (0.82-1.09) H 03/05/17 20:05 Problem List - Problems (1) Acute metabolic encephalopathy Code(s): G93.41 - METABOLIC ENCEPHALOPATHY (2) Brain mass Code(s): G93.9 - DISORDER OF BRAIN, UNSPECIFIED (3) UTI (urinary tract infection) Code(s): N39.0 - URINARY TRACT INFECTION, SITE NOT SPECIFIED (4) Dementia Code(s): F03.90 - UNSPECIFIED DEMENTIA WITHOUT BEHAVIORAL DISTURBANCE (5) History of seizure Code(s): Z87.898 - PERSONAL HISTORY OF OTHER SPECIFIED CONDITIONS Assessment/Plan (1) Acute metabolic encephalopathy Assessment/Plan: -multifactorial -continue treating UTI -suspect patient is now at baseline Code(s): G93.41 - METABOLIC ENCEPHALOPATHY (2) Brain mass Assessment/Plan: -continue dexamethasone, decrease per neurology -son called and case discussed -no further workup currently, however will need to have goals of care and code status addressed at [facility] Code(s): G93.9 - DISORDER OF BRAIN, UNSPECIFIED (3) UTI (urinary tract infection) Assessment/Plan: -now growing ESBL e coli -ID following and case discussed -continue ertapenem, day 814 -awaiting approval for outpatient antibiotics Code(s): N39.0 - URINARY TRACT INFECTION, SITE NOT SPECIFIED (4) Dementia Assessment/Plan: -as above Code(s): F03.90 - UNSPECIFIED DEMENTIA WITHOUT BEHAVIORAL DISTURBANCE (5) History of seizure Assessment/Plan: -continue oral keppra Code(s): Z87.898 - PERSONAL HISTORY OF OTHER SPECIFIED CONDITIONS Dispo -plan for discharge back to SNF when outpatient antibiotics approved
[2017-03-15] MEDS: DONEPEZIL HCL 10 MG TABLET (FP) PO SCH (23:10)
[2017-03-15] MEDS: DOCUSATE SODIUM 100 MG CAPSULE (FP) PO SCH (23:10)
[2017-03-16] MEDS: DEXAMETHASONE SOD PHOSPHATE 4 MG/1 ML VIAL IVPUSH SCH ×4 (03:08→21:46)
[2017-03-16 08:32] LABS: CHLORIDE 106 mmol/L (98-107); POTASSIUM 4.4 mmol/L (3.5-5.1); SODIUM 139 mmol/L (136-145)
[2017-03-16 08:40] LABS: ANION GAP 7 (8-16); BLOOD UREA NITROGEN 16 mg/dL (7-18); CALCIUM 8.2 mg/dL (8.5-10.1); CO2 26 mmol/L (21-32); CREATININE 0.4 mg/dL (0.55-1.02); GLUCOSE,RANDOM 134 mg/dL (74-106); MAGNESIUM 2.1 mg/dL (1.8-2.4); PHOSPHOROUS 2.8 mg/dL (2.5-4.9)
[2017-03-16] MEDS: HEPARIN NA (PORCINE) 5,000 UNITS/ML 1ML VIAL SQ SCH ×2 (09:13→21:47)
[2017-03-16] MEDS: MULTIVITAMINS (DAILY MVI) TABLET (FP) PO SCH (09:13)
[2017-03-16] MEDS: ERTAPENEM SODIUM 1 GM in SODIUM CHLORIDE 100 ML IVPB SCH (09:13)
[2017-03-16] MEDS: CHOLECALCIFEROL (VITAMIN D3) 1,000 UNIT TABLET (FP) PO SCH (09:13)
[2017-03-16] MEDS: CLOPIDOGREL BISULFATE 75 MG TABLET (FP) PO SCH (09:13)
[2017-03-16 09:14] LABS: BASO % 0.4 % (0-2.0); EOS % 0.1 % (0-4.5); HEMATOCRIT 39.6 % (32.4-45.2); HEMOGLOBIN 12.6 GM/dL (10.7-15.3); LYMPH % 7.5 % (8-40); MCH 31.9 pg (25.7-33.7); MCHC 31.8 g/dl (32.0-36.0); MEAN CELL VOLUME 100.3 fl (80-96); MONO % 5.2 % (3.8-10.2); NEUT % 86.8 % (42.8-82.8); PLATELET COUNT 208 K/MM3 (134-434); RBC 3.95 M/mm3 (3.60-5.2); RDW 12.9 % (11.6-15.6); WHITE BLOOD COUNT 7.7 K/mm3 (4.0-10.0)
[2017-03-16] MEDS: QUEtiapine FUMARATE 25 MG TABLET (FP) PO SCH ×2 (09:14→21:50)
[2017-03-16] MEDS ORDERED: PT OWN MED DRAWER 7, Y5N ONE ×2 (09:16→13:14)
[2017-03-16] MEDS: levETIRAcetam 500 MG/5 ML ORAL SOLUTION (UNIT-DOSE CUPS) PO SCH ×2 (09:17→21:51)
--- NOTE | 2017-03-16 13:57 | PN ---
Progress Note, Physician History of Present Illness: stable no new issues - Current Medication List Current Medications: Active Medications Acetaminophen (Tylenol -) 650 mg PO Q6H PRN PRN Reason: PAIN Last Admin: 03/10/17 21:03 Dose: 650 mg Cholecalciferol (Vitamin D3 -) 1,000 unit PO DAILY [facility] Last Admin: 03/16/17 09:13 Dose: 1,000 unit Clopidogrel Bisulfate (Plavix -) 75 mg PO DAILY [facility] Last Admin: 03/16/17 09:13 Dose: 75 mg Dexamethasone Sodium Phosphate (Decadron Injection -) 2 mg IVPUSH Q6H-IV [facility] Last Admin: 03/16/17 09:13 Dose: 2 mg Docusate Sodium (Colace -) 200 mg PO HS [facility] Last Admin: 03/15/17 23:10 Dose: 200 mg Donepezil HCl (Aricept -) 10 mg PO HS [facility] Last Admin: 03/15/17 23:10 Dose: 10 mg Heparin Sodium (Porcine) (Heparin -) 5,000 unit SQ BID [facility] Last Admin: 03/16/17 09:13 Dose: 5,000 unit IV Flush (Picc Line Flush) 8 ml IVPUSH PRN PRN PRN Reason: Protocol Ertapenem 1 gm/ Sodium (Chloride) 100 mls @ 200 mls/hr IVPB DAILY [facility] PRN Reason: Protocol Last Admin: 03/16/17 09:13 Dose: 200 mls/hr Levetiracetam (Keppra Oral Solution -) 750 mg PO BID [facility] Last Admin: 03/16/17 09:17 Dose: 750 mg Multivitamins/Minerals/Vitamin C (Tab-A-Vit -) 1 tab PO DAILY [facility] Last Admin: 03/16/17 09:13 Dose: 1 tab Quetiapine Fumarate (Seroquel -) 12.5 mg PO BID [facility] Last Admin: 03/16/17 09:14 Dose: 12.5 mg - Objective Vital Signs: Vital Signs Temperature 97.8 F 03/16/17 10:00 Pulse Rate 52 L 03/16/17 10:00 Respiratory Rate 16 03/16/17 10:00 Blood Pressure 152/63 03/16/17 10:00 O2 Sat by Pulse Oximetry (%) 98 03/16/17 09:00 Constitutional: Yes: No Distress, Calm Cardiovascular: Yes: Regular Rate and Rhythm Respiratory: Yes: Regular, CTA Bilaterally Gastrointestinal: Yes: Normal Bowel Sounds, Soft Musculoskeletal: Yes: WNL Extremities: Yes: WNL Neurological: Yes: Alert, Other Psychiatric: Yes: Other Labs: CBC, BMP 03/16/17 08:45 03/16/17 07:00 INR, PTT INR 1.22 (0.82-1.09) H 03/05/17 20:05 Assessment/Plan Problem List - Problems (1) Acute metabolic encephalopathy Code(s): G93.41 - METABOLIC ENCEPHALOPATHY (2) Brain mass Code(s): G93.9 - DISORDER OF BRAIN, UNSPECIFIED (3) UTI (urinary tract infection) Code(s): N39.0 - URINARY TRACT INFECTION, SITE NOT SPECIFIED (4) Dementia Code(s): F03.90 - UNSPECIFIED DEMENTIA WITHOUT BEHAVIORAL DISTURBANCE (5) History of seizure Code(s): Z87.898 - PERSONAL HISTORY OF OT plan 14 days abx total rest as per primary team patient stable
--- NOTE | 2017-03-16 14:48 | PN ---
Progress Note, Physician Chief Complaint: No new complaint or over night event,, remained at base line History of Present Illness: 86 year old female with a past medical history of alzheimer's Dementia with psychosis, TIA, ischemic heart disease who was sent from the [place] with AMS/ unresponsive. CT head significant for 4. 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 - Current Medication List Current Medications: Active Medications Acetaminophen (Tylenol -) 650 mg PO Q6H PRN PRN Reason: PAIN Last Admin: 03/10/17 21:03 Dose: 650 mg Cholecalciferol (Vitamin D3 -) 1,000 unit PO DAILY [facility] Last Admin: 03/16/17 09:13 Dose: 1,000 unit Clopidogrel Bisulfate (Plavix -) 75 mg PO DAILY [facility] Last Admin: 03/16/17 09:13 Dose: 75 mg Dexamethasone Sodium Phosphate (Decadron Injection -) 2 mg IVPUSH Q6H-IV [facility] Last Admin: 03/16/17 09:13 Dose: 2 mg Docusate Sodium (Colace -) 200 mg PO HS [facility] Last Admin: 03/15/17 23:10 Dose: 200 mg Donepezil HCl (Aricept -) 10 mg PO HS [facility] Last Admin: 03/15/17 23:10 Dose: 10 mg Heparin Sodium (Porcine) (Heparin -) 5,000 unit SQ BID [facility] Last Admin: 03/16/17 09:13 Dose: 5,000 unit IV Flush (Picc Line Flush) 8 ml IVPUSH PRN PRN PRN Reason: Protocol Ertapenem 1 gm/ Sodium (Chloride) 100 mls @ 200 mls/hr IVPB DAILY [facility] PRN Reason: Protocol Last Admin: 03/16/17 09:13 Dose: 200 mls/hr Levetiracetam (Keppra Oral Solution -) 750 mg PO BID [facility] Last Admin: 03/16/17 09:17 Dose: 750 mg Multivitamins/Minerals/Vitamin C (Tab-A-Vit -) 1 tab PO DAILY [facility] Last Admin: 03/16/17 09:13 Dose: 1 tab Quetiapine Fumarate (Seroquel -) 12.5 mg PO BID [facility] Last Admin: 03/16/17 09:14 Dose: 12.5 mg - Objective Vital Signs: Vital Signs Temperature 97.8 F 03/16/17 10:00 Pulse Rate 52 L 03/16/17 10:00 Respiratory Rate 16 03/16/17 10:00 Blood Pressure 152/63 03/16/17 10:00 O2 Sat by Pulse Oximetry (%) 98 03/16/17 09:00 Elderly F not in distress HEENT: Mm moist, no anemia, PERRLA EOMI NECK; No JVD No Bruit CHEST: CTA B/L CVS: S1S2 R no m/g/r ABD: no distention, non tender Bs + EXT: No edema, contracture MARKETING LEAD: no interval changes Labs: CBC, BMP 03/16/17 08:45 03/16/17 07:00 INR, PTT INR 1.22 (0.82-1.09) H 03/05/17 20:05 Problem List - Problems (1) Acute metabolic encephalopathy Code(s): G93.41 - METABOLIC ENCEPHALOPATHY (2) Dementia Assessment/Plan: Improving now more alert, on IV abx base line Dementia. Code(s): F03.90 - UNSPECIFIED DEMENTIA WITHOUT BEHAVIORAL DISTURBANCE (3) Brain mass Assessment/Plan: evaluted by On dexamethasone and seizures prophylaxis Code(s): G93.9 - DISORDER OF BRAIN, UNSPECIFIED (4) History of seizure Assessment/Plan: On anti epleptic medicine, no seizures during hospitalization. Code(s): Z87.898 - PERSONAL HISTORY OF OTHER SPECIFIED CONDITIONS (5) UTI (urinary tract infection) Assessment/Plan: On IV abx so far cultures are -ve Code(s): N39.0 - URINARY TRACT INFECTION, SITE NOT SPECIFIED
[2017-03-16] MEDS: DONEPEZIL HCL 10 MG TABLET (FP) PO SCH (21:46)
[2017-03-16] MEDS: DOCUSATE SODIUM 100 MG CAPSULE (FP) PO SCH (21:47)
[2017-03-17] MEDS: DEXAMETHASONE SOD PHOSPHATE 4 MG/1 ML VIAL IVPUSH SCH ×4 (02:17→22:24)
[2017-03-17 08:39] LABS: BASO % 0.1 % (0-2.0); HEMATOCRIT 38.9 % (32.4-45.2); HEMOGLOBIN 12.6 GM/dL (10.7-15.3); LYMPH % 6.2 % (8-40); MCH 32.5 pg (25.7-33.7); MCHC 32.5 g/dl (32.0-36.0); MEAN CELL VOLUME 100.2 fl (80-96); MONO % 3.2 % (3.8-10.2); NEUT % 90.5 % (42.8-82.8); PLATELET COUNT 216 K/MM3 (134-434); RBC 3.89 M/mm3 (3.60-5.2); RDW 13.4 % (11.6-15.6); WHITE BLOOD COUNT 8.1 K/mm3 (4.0-10.0)
--- NOTE | 2017-03-17 08:58 | PN ---
Progress Note, Physician History of Present Illness: no new issues stable - Current Medication List Current Medications: Active Medications Acetaminophen (Tylenol -) 650 mg PO Q6H PRN PRN Reason: PAIN Last Admin: 03/10/17 21:03 Dose: 650 mg Cholecalciferol (Vitamin D3 -) 1,000 unit PO DAILY [facility] Last Admin: 03/16/17 09:13 Dose: 1,000 unit Clopidogrel Bisulfate (Plavix -) 75 mg PO DAILY [facility] Last Admin: 03/16/17 09:13 Dose: 75 mg Dexamethasone Sodium Phosphate (Decadron Injection -) 2 mg IVPUSH Q6H-IV [facility] Last Admin: 03/17/17 02:17 Dose: 2 mg Docusate Sodium (Colace -) 200 mg PO HS [facility] Last Admin: 03/16/17 21:47 Dose: 200 mg Donepezil HCl (Aricept -) 10 mg PO HS [facility] Last Admin: 03/16/17 21:46 Dose: 10 mg Heparin Sodium (Porcine) (Heparin -) 5,000 unit SQ BID [facility] Last Admin: 03/16/17 21:47 Dose: 5,000 unit IV Flush (Picc Line Flush) 8 ml IVPUSH PRN PRN PRN Reason: Protocol Ertapenem 1 gm/ Sodium (Chloride) 100 mls @ 200 mls/hr IVPB DAILY [facility] PRN Reason: Protocol Last Admin: 03/16/17 09:13 Dose: 200 mls/hr Levetiracetam (Keppra Oral Solution -) 750 mg PO BID [facility] Last Admin: 03/16/17 21:51 Dose: 750 mg Multivitamins/Minerals/Vitamin C (Tab-A-Vit -) 1 tab PO DAILY [facility] Last Admin: 03/16/17 09:13 Dose: 1 tab Quetiapine Fumarate (Seroquel -) 12.5 mg PO BID [facility] Last Admin: 03/16/17 21:50 Dose: 12.5 mg - Objective Vital Signs: Vital Signs Temperature 98.3 F 03/17/17 07:54 Pulse Rate 69 03/17/17 07:54 Respiratory Rate 18 03/17/17 07:54 Blood Pressure 107/80 03/17/17 07:54 O2 Sat by Pulse Oximetry (%) 98 03/16/17 21:00 Constitutional: Yes: No Distress, Calm Cardiovascular: Yes: Regular Rate and Rhythm Respiratory: Yes: Regular Gastrointestinal: Yes: Normal Bowel Sounds, Soft Neurological: Yes: Alert, Other Psychiatric: Yes: Other Labs: CBC, BMP 03/17/17 07:00 INR, PTT INR 1.22 (0.82-1.09) H 03/05/17 20:05 Assessment/Plan Problem List - Problems (1) Acute metabolic encephalopathy Code(s): G93.41 - METABOLIC ENCEPHALOPATHY (2) Brain mass Code(s): G93.9 - DISORDER OF BRAIN, UNSPECIFIED (3) UTI (urinary tract infection) Code(s): N39.0 - URINARY TRACT INFECTION, SITE NOT SPECIFIED (4) Dementia Code(s): F03.90 - UNSPECIFIED DEMENTIA WITHOUT BEHAVIORAL DISTURBANCE (5) History of seizure Code(s): Z87.898 - PERSONAL HISTORY OF OT plan tolerating abx well no issues continue to complete the course rest as per primary team
[2017-03-17 09:00] LABS: ANION GAP 5 (8-16); BLOOD UREA NITROGEN 16 mg/dL (7-18); CALCIUM 8.4 mg/dL (8.5-10.1); CHLORIDE 107 mmol/L (98-107); CO2 30 mmol/L (21-32); CREATININE 0.5 mg/dL (0.55-1.02); GLUCOSE,RANDOM 149 mg/dL (74-106); POTASSIUM 4.4 mmol/L (3.5-5.1); SODIUM 142 mmol/L (136-145)
[2017-03-17] MEDS: ERTAPENEM SODIUM 1 GM in SODIUM CHLORIDE 100 ML IVPB SCH (09:10)
[2017-03-17] MEDS: HEPARIN NA (PORCINE) 5,000 UNITS/ML 1ML VIAL SQ SCH ×2 (10:21→22:26)
[2017-03-17] MEDS: CLOPIDOGREL BISULFATE 75 MG TABLET (FP) PO SCH (10:22)
[2017-03-17] MEDS: CHOLECALCIFEROL (VITAMIN D3) 1,000 UNIT TABLET (FP) PO SCH (10:22)
[2017-03-17] MEDS: MULTIVITAMINS (DAILY MVI) TABLET (FP) PO SCH (10:22)
[2017-03-17] MEDS: QUEtiapine FUMARATE 25 MG TABLET (FP) PO SCH ×2 (10:22→22:26)
[2017-03-17] MEDS: levETIRAcetam 500 MG/5 ML ORAL SOLUTION (UNIT-DOSE CUPS) PO SCH ×2 (10:23→22:25)
--- NOTE | 2017-03-17 13:23 | PN ---
Progress Note, Physician Chief Complaint: No new complaint, remained at base line History of Present Illness: 86 year old female with a past medical history of alzheimer's Dementia with psychosis, TIA, ischemic heart disease who was sent from the [place] with AMS/ unresponsive. CT head significant for 4. 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 - Current Medication List Current Medications: Active Medications Acetaminophen (Tylenol -) 650 mg PO Q6H PRN PRN Reason: PAIN Last Admin: 03/10/17 21:03 Dose: 650 mg Cholecalciferol (Vitamin D3 -) 1,000 unit PO DAILY [facility] Last Admin: 03/17/17 10:22 Dose: 1,000 unit Clopidogrel Bisulfate (Plavix -) 75 mg PO DAILY [facility] Last Admin: 03/17/17 10:22 Dose: 75 mg Dexamethasone Sodium Phosphate (Decadron Injection -) 2 mg IVPUSH Q6H-IV [facility] Last Admin: 03/17/17 09:10 Dose: 2 mg Docusate Sodium (Colace -) 200 mg PO HS [facility] Last Admin: 03/16/17 21:47 Dose: 200 mg Donepezil HCl (Aricept -) 10 mg PO HS [facility] Last Admin: 03/16/17 21:46 Dose: 10 mg Heparin Sodium (Porcine) (Heparin -) 5,000 unit SQ BID [facility] Last Admin: 03/17/17 10:21 Dose: 5,000 unit IV Flush (Picc Line Flush) 8 ml IVPUSH PRN PRN PRN Reason: Protocol Ertapenem 1 gm/ Sodium (Chloride) 100 mls @ 200 mls/hr IVPB DAILY [facility] PRN Reason: Protocol Last Admin: 03/17/17 09:10 Dose: 200 mls/hr Levetiracetam (Keppra Oral Solution -) 750 mg PO BID [facility] Last Admin: 03/17/17 10:23 Dose: 750 mg Multivitamins/Minerals/Vitamin C (Tab-A-Vit -) 1 tab PO DAILY [facility] Last Admin: 03/17/17 10:22 Dose: 1 tab Quetiapine Fumarate (Seroquel -) 12.5 mg PO BID [facility] Last Admin: 03/17/17 10:22 Dose: 12.5 mg - Objective Vital Signs: Vital Signs Temperature 97.9 F 03/17/17 10:00 Pulse Rate 49 L 03/17/17 10:00 Respiratory Rate 18 03/17/17 10:00 Blood Pressure 150/71 03/17/17 10:00 O2 Sat by Pulse Oximetry (%) 98 03/16/17 21:00 Elderly F not in distress HEENT: Mm moist, no anemia, PERRLA EOMI NECK; No JVD No Bruit CHEST: CTA B/L CVS: S1S2 R no m/g/r ABD: no distention, non tender Bs + EXT: No edema, contracture 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 Labs: CBC, BMP 03/17/17 07:00 03/17/17 07:00 INR, PTT INR 1.22 (0.82-1.09) H 03/05/17 20:05 Problem List - Problems (1) Acute metabolic encephalopathy Code(s): G93.41 - METABOLIC ENCEPHALOPATHY (2) Dementia Assessment/Plan: Dementia at base line Code(s): F03.90 - UNSPECIFIED DEMENTIA WITHOUT BEHAVIORAL DISTURBANCE (3) Brain mass Assessment/Plan: On dexamethasone and seizures prophylaxis Code(s): G93.9 - DISORDER OF BRAIN, UNSPECIFIED (4) History of seizure Assessment/Plan: On anti epleptic medicine Code(s): Z87.898 - PERSONAL HISTORY OF OTHER SPECIFIED CONDITIONS (5) UTI (urinary tract infection) Assessment/Plan: On IV abx so far cultures are -ve Code(s): N39.0 - URINARY TRACT INFECTION, SITE NOT SPECIFIED
[2017-03-17] MEDS: DOCUSATE SODIUM 100 MG CAPSULE (FP) PO SCH (22:25)
[2017-03-17] MEDS: DONEPEZIL HCL 10 MG TABLET (FP) PO SCH (22:25)
[2017-03-18] MEDS: DEXAMETHASONE SOD PHOSPHATE 4 MG/1 ML VIAL IVPUSH SCH ×4 (02:48→20:19)
[2017-03-18 08:45] LABS: BASO % 0.1 % (0-2.0); HEMATOCRIT 40.6 % (32.4-45.2); LYMPH % 5.4 % (8-40); MCH 32.4 pg (25.7-33.7); MCHC 32.1 g/dl (32.0-36.0); MONO % 2.9 % (3.8-10.2); NEUT % 91.6 % (42.8-82.8); PLATELET COUNT 219 K/MM3 (134-434); RBC 4.02 M/mm3 (3.60-5.2); RDW 13.2 % (11.6-15.6); WHITE BLOOD COUNT 8.2 K/mm3 (4.0-10.0)
[2017-03-18 09:02] LABS: ANION GAP 9 (8-16); BLOOD UREA NITROGEN 19 mg/dL (7-18); CALCIUM 9.2 mg/dL (8.5-10.1); CHLORIDE 106 mmol/L (98-107); CO2 29 mmol/L (21-32); CREATININE 0.5 mg/dL (0.55-1.02); GLUCOSE,RANDOM 140 mg/dL (74-106); POTASSIUM 4.6 mmol/L (3.5-5.1); SODIUM 144 mmol/L (136-145)
[2017-03-18] MEDS: CLOPIDOGREL BISULFATE 75 MG TABLET (FP) PO SCH (10:16)
[2017-03-18] MEDS: CHOLECALCIFEROL (VITAMIN D3) 1,000 UNIT TABLET (FP) PO SCH (10:16)
[2017-03-18] MEDS: MULTIVITAMINS (DAILY MVI) TABLET (FP) PO SCH (10:17)
[2017-03-18] MEDS: QUEtiapine FUMARATE 25 MG TABLET (FP) PO SCH ×2 (10:17→22:15)
[2017-03-18] MEDS: ERTAPENEM SODIUM 1 GM in SODIUM CHLORIDE 100 ML IVPB SCH (10:18)
[2017-03-18] MEDS: HEPARIN NA (PORCINE) 5,000 UNITS/ML 1ML VIAL SQ SCH (10:18)
[2017-03-18] MEDS: levETIRAcetam 500 MG/5 ML ORAL SOLUTION (UNIT-DOSE CUPS) PO SCH ×2 (10:18→22:14)
[2017-03-18] MEDS: ACETAMINOPHEN 325 MG TABLET (FP) PO PRN (11:34)
--- NOTE | 2017-03-18 12:29 | PN ---
Progress Note, Physician Chief Complaint: No new complaint, remained at base line History of Present Illness: 86 year old female with a past medical history of alzheimer's Dementia with psychosis, TIA, ischemic heart disease who was sent from the [place] with AMS/ unresponsive. CT head significant for 4. 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 - Current Medication List Current Medications: Active Medications Acetaminophen (Tylenol -) 650 mg PO Q6H PRN PRN Reason: PAIN Last Admin: 03/18/17 11:34 Dose: 650 mg Cholecalciferol (Vitamin D3 -) 1,000 unit PO DAILY [facility] Last Admin: 03/18/17 10:16 Dose: 1,000 unit Clopidogrel Bisulfate (Plavix -) 75 mg PO DAILY [facility] Last Admin: 03/18/17 10:16 Dose: 75 mg Dexamethasone Sodium Phosphate (Decadron Injection -) 2 mg IVPUSH Q6H-IV [facility] Last Admin: 03/18/17 10:16 Dose: 2 mg Docusate Sodium (Colace -) 200 mg PO HS [facility] Last Admin: 03/17/17 22:25 Dose: 200 mg Donepezil HCl (Aricept -) 10 mg PO HS [facility] Last Admin: 03/17/17 22:25 Dose: 10 mg Heparin Sodium (Porcine) (Heparin -) 5,000 unit SQ BID [facility] Last Admin: 03/18/17 10:18 Dose: 5,000 unit IV Flush (Picc Line Flush) 8 ml IVPUSH PRN PRN PRN Reason: Protocol Ertapenem 1 gm/ Sodium (Chloride) 100 mls @ 200 mls/hr IVPB DAILY [facility] PRN Reason: Protocol Last Admin: 03/18/17 10:18 Dose: 200 mls/hr Levetiracetam (Keppra Oral Solution -) 750 mg PO BID [facility] Last Admin: 03/18/17 10:18 Dose: 750 mg Multivitamins/Minerals/Vitamin C (Tab-A-Vit -) 1 tab PO DAILY [facility] Last Admin: 03/18/17 10:17 Dose: 1 tab Quetiapine Fumarate (Seroquel -) 12.5 mg PO BID [facility] Last Admin: 03/18/17 10:17 Dose: 12.5 mg - Objective Vital Signs: Vital Signs Temperature 98.8 F 03/18/17 10:00 Pulse Rate 57 L 03/18/17 10:00 Respiratory Rate 18 03/18/17 10:00 Blood Pressure 102/57 03/18/17 10:00 O2 Sat by Pulse Oximetry (%) 98 03/16/17 21:00 Elderly F not in distress HEENT: Mm moist, no anemia, PERRLA EOMI NECK; No JVD No Bruit CHEST: CTA B/L CVS: S1S2 R no m/g/r ABD: no distention, non tender Bs + EXT: No edema, contracture 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 Labs: CBC, BMP 03/18/17 07:30 03/18/17 07:30 INR, PTT INR 1.22 (0.82-1.09) H 03/05/17 20:05 Problem List - Problems (1) Acute metabolic encephalopathy Code(s): G93.41 - METABOLIC ENCEPHALOPATHY (2) Dementia Assessment/Plan: Dementia at base line Code(s): F03.90 - UNSPECIFIED DEMENTIA WITHOUT BEHAVIORAL DISTURBANCE (3) Brain mass Assessment/Plan: On dexamethasone and seizures prophylaxis Code(s): G93.9 - DISORDER OF BRAIN, UNSPECIFIED (4) History of seizure Assessment/Plan: On anti epleptic medicine Code(s): Z87.898 - PERSONAL HISTORY OF OTHER SPECIFIED CONDITIONS (5) UTI (urinary tract infection) Assessment/Plan: On IV abx U culture Grew Pansensitive E Colli Code(s): N39.0 - URINARY TRACT INFECTION, SITE NOT SPECIFIED
--- NOTE | 2017-03-18 12:31 | PN ---
Progress Note, Physician History of Present Illness: no new issues stable - Current Medication List Current Medications: Active Medications Acetaminophen (Tylenol -) 650 mg PO Q6H PRN PRN Reason: PAIN Last Admin: 03/18/17 11:34 Dose: 650 mg Cholecalciferol (Vitamin D3 -) 1,000 unit PO DAILY [facility] Last Admin: 03/18/17 10:16 Dose: 1,000 unit Clopidogrel Bisulfate (Plavix -) 75 mg PO DAILY [facility] Last Admin: 03/18/17 10:16 Dose: 75 mg Dexamethasone Sodium Phosphate (Decadron Injection -) 2 mg IVPUSH Q6H-IV [facility] Last Admin: 03/18/17 10:16 Dose: 2 mg Docusate Sodium (Colace -) 200 mg PO HS [facility] Last Admin: 03/17/17 22:25 Dose: 200 mg Donepezil HCl (Aricept -) 10 mg PO HS [facility] Last Admin: 03/17/17 22:25 Dose: 10 mg Heparin Sodium (Porcine) (Heparin -) 5,000 unit SQ BID [facility] Last Admin: 03/18/17 10:18 Dose: 5,000 unit IV Flush (Picc Line Flush) 8 ml IVPUSH PRN PRN PRN Reason: Protocol Ertapenem 1 gm/ Sodium (Chloride) 100 mls @ 200 mls/hr IVPB DAILY [facility] PRN Reason: Protocol Last Admin: 03/18/17 10:18 Dose: 200 mls/hr Levetiracetam (Keppra Oral Solution -) 750 mg PO BID [facility] Last Admin: 03/18/17 10:18 Dose: 750 mg Multivitamins/Minerals/Vitamin C (Tab-A-Vit -) 1 tab PO DAILY [facility] Last Admin: 03/18/17 10:17 Dose: 1 tab Quetiapine Fumarate (Seroquel -) 12.5 mg PO BID [facility] Last Admin: 03/18/17 10:17 Dose: 12.5 mg - Objective Vital Signs: Vital Signs Temperature 98.8 F 03/18/17 10:00 Pulse Rate 57 L 03/18/17 10:00 Respiratory Rate 18 03/18/17 10:00 Blood Pressure 102/57 03/18/17 10:00 O2 Sat by Pulse Oximetry (%) 98 03/16/17 21:00 Constitutional: Yes: No Distress, Calm Cardiovascular: Yes: Regular Rate and Rhythm Respiratory: Yes: Regular, CTA Bilaterally Musculoskeletal: Yes: WNL Extremities: Yes: WNL Neurological: Yes: Other (dementia) Labs: CBC, BMP 03/18/17 07:30 03/18/17 07:30 INR, PTT INR 1.22 (0.82-1.09) H 03/05/17 20:05 Assessment/Plan Problem List - Problems (1) Acute metabolic encephalopathy Code(s): G93.41 - METABOLIC ENCEPHALOPATHY (2) Brain mass Code(s): G93.9 - DISORDER OF BRAIN, UNSPECIFIED (3) UTI (urinary tract infection) Code(s): N39.0 - URINARY TRACT INFECTION, SITE NOT SPECIFIED (4) Dementia Code(s): F03.90 - UNSPECIFIED DEMENTIA WITHOUT BEHAVIORAL DISTURBANCE (5) History of seizure Code(s): Z87.898 - PERSONAL HISTORY OF OT plan tolerating abx well no issues continue to complete the course rest as per primary team neurology following
[2017-03-18] MEDS ORDERED: PT OWN MED DRAWER 7, Y5N ONE (22:12)
[2017-03-18] MEDS: DONEPEZIL HCL 10 MG TABLET (FP) PO SCH (22:14)
[2017-03-18] MEDS: DOCUSATE SODIUM 100 MG CAPSULE (FP) PO SCH (22:14)
[2017-03-19] MEDS: DEXAMETHASONE SOD PHOSPHATE 4 MG/1 ML VIAL IVPUSH SCH ×4 (02:43→20:46)
[2017-03-19 08:40] LABS: BASO % 0.3 % (0-2.0); EOS % 0.1 % (0-4.5); HEMATOCRIT 39.4 % (32.4-45.2); HEMOGLOBIN 12.4 GM/dL (10.7-15.3); LYMPH % 3.6 % (8-40); MCH 31.8 pg (25.7-33.7); MCHC 31.6 g/dl (32.0-36.0); MEAN CELL VOLUME 100.9 fl (80-96); MEAN PLT VOLUME 9.2 fl (7.5-11.1); MONO % 2.8 % (3.8-10.2); NEUT % 93.2 % (42.8-82.8); PLATELET COUNT 211 K/MM3 (134-434); RBC 3.91 M/mm3 (3.60-5.2); RDW 13.1 % (11.6-15.6); WHITE BLOOD COUNT 7.5 K/mm3 (4.0-10.0)
[2017-03-19 08:55] LABS: ANION GAP 10 (8-16); BLOOD UREA NITROGEN 21 mg/dL (7-18); CALCIUM 8.8 mg/dL (8.5-10.1); CHLORIDE 106 mmol/L (98-107); CO2 27 mmol/L (21-32); CREATININE 0.5 mg/dL (0.55-1.02); GLUCOSE,RANDOM 123 mg/dL (74-106); POTASSIUM 4.6 mmol/L (3.5-5.1); SODIUM 143 mmol/L (136-145)
[2017-03-19] MEDS ORDERED: PT OWN MED DRAWER 7, Y5N ONE ×3 (09:11→21:42)
--- NOTE | 2017-03-19 09:47 | PN ---
Progress Note (short form) - Note Progress Note: Neurology HISTORY OF PRESENT ILLNESS: This is an 86 year old female with a past medical history of alzheimer's Dementia with psychosis, TIA, ischemic heart disease [place]unresponsive. CT head completed and was impressive for 4. 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 Patient also admitted for UTI and on Keppra for seizures, 500mg twice daily. No seizure like activity for this admission. Currently on decadron 2mg Q 6hrs. Will slightly decrease to 1mg Qhrs. Active Medications Acetaminophen (Tylenol -) 650 mg PO Q6H PRN PRN Reason: PAIN Last Admin: 03/18/17 11:34 Dose: 650 mg Cholecalciferol (Vitamin D3 -) 1,000 unit PO DAILY [facility] Last Admin: 03/18/17 10:16 Dose: 1,000 unit Clopidogrel Bisulfate (Plavix -) 75 mg PO DAILY [facility] Last Admin: 03/18/17 10:16 Dose: 75 mg Dexamethasone Sodium Phosphate (Decadron Injection -) 2 mg IVPUSH Q6H-IV [facility] Last Admin: 03/19/17 02:43 Dose: 2 mg Docusate Sodium (Colace -) 200 mg PO HS [facility] Last Admin: 03/18/17 22:14 Dose: 200 mg Donepezil HCl (Aricept -) 10 mg PO HS [facility] Last Admin: 03/18/17 22:14 Dose: 10 mg IV Flush (Picc Line Flush) 8 ml IVPUSH PRN PRN PRN Reason: Protocol Ertapenem 1 gm/ Sodium (Chloride) 100 mls @ 200 mls/hr IVPB DAILY [facility] PRN Reason: Protocol Last Admin: 03/18/17 10:18 Dose: 200 mls/hr Levetiracetam (Keppra Oral Solution -) 750 mg PO BID [facility] Last Admin: 03/18/17 22:14 Dose: 750 mg Multivitamins/Minerals/Vitamin C (Tab-A-Vit -) 1 tab PO DAILY [facility] Last Admin: 03/18/17 10:17 Dose: 1 tab Quetiapine Fumarate (Seroquel -) 12.5 mg PO BID [facility] Last Admin: 03/18/17 22:15 Dose: 12.5 mg PHYSICAL EXAMINATION Vital Signs Temperature 98 F 03/19/17 06:19 Pulse Rate 54 L 03/19/17 06:19 Respiratory Rate 18 03/19/17 06:19 Blood Pressure 152/70 03/19/17 06:19 O2 Sat by Pulse Oximetry (%) 98 03/16/17 21:00 GENERAL: Awake, alert, and disoriented, in no acute distress. follows with her eyes HEAD: Normal with no signs of trauma. EYES: Pupils equal, round and reactive to light, extraocular movements intact, sclera anicteric, conjunctiva clear. No lid lag. EARS, NOSE, THROAT: Ears normal, nares patent, oropharynx clear without exudates. Moist mucous membranes. NECK: Normal range of motion, supple without lymphadenopathy, JVD, or masses. LUNGS: Breath sounds equal, clear to auscultation bilaterally. No wheezes, and no crackles. No accessory muscle use. HEART: Regular rate and rhythm, normal S1 and S2 without murmur, rub or gallop. ABDOMEN: Soft, nontender, not distended, normoactive bowel sounds, no guarding, no rebound, no masses. No hepatomegaly or splenomegaly. MUSCULOSKELETAL: Normal range of motion at all joints. No bony deformities or tenderness. No CVA tenderness. UPPER EXTREMITIES: 2+ pulses, warm, well-perfused. No cyanosis. No clubbing. No peripheral edema. LOWER EXTREMITIES: 2+ pulses, warm, well-perfused. No calf tenderness. No peripheral edema. NEUROLOGICAL: Cranial nerves intact, grossly moving ext, not cooperative on confrontation, sensory intact PSYCHIATRIC: Cooperative. Good eye contact. Appropriate mood and affect. SKIN: Warm, dry, normal turgor, no rashes or lesions noted, normal capillary refill. CBCD WBC 7.5 K/mm3 (4.0-10.0) 03/19/17 06:00 RBC 3.91 M/mm3 (3.60-5.2) 03/19/17 06:00 Hgb 12.4 GM/dL (10.7-15.3) 03/19/17 06:00 Hct 39.4 % (32.4-45.2) 03/19/17 06:00 MCV 100.9 fl (80-96) H 03/19/17 06:00 MCHC 31.6 g/dl (32.0-36.0) L 03/19/17 06:00 RDW 13.1 % (11.6-15.6) 03/19/17 06:00 Plt Count 211 K/MM3 (134-434) 03/19/17 06:00 MPV 9.2 fl (7.5-11.1) 03/19/17 06:00 CMP Sodium 143 mmol/L (136-145) 03/19/17 06:00 Potassium 4.6 mmol/L (3.5-5.1) 03/19/17 06:00 Chloride 106 mmol/L (98-107) 03/19/17 06:00 Carbon Dioxide 27 mmol/L (21-32) 03/19/17 06:00 Anion Gap 10 (8-16) 03/19/17 06:00 BUN 21 mg/dL (7-18) H 03/19/17 06:00 Creatinine 0.5 mg/dL (0.55-1.02) L 03/19/17 06:00 Creat Clearance w eGFR > 60 (>60) 03/08/17 06:00 Calcium 8.8 mg/dL (8.5-10.1) 03/19/17 06:00 Total Bilirubin 0.3 mg/dL (0.2-1.0) 03/08/17 06:00 AST 12 U/L (15-37) L 03/08/17 06:00 ALT 10 U/L (12-78) L 03/08/17 06:00 Alkaline Phosphatase 131 U/L (45-117) H 03/08/17 06:00 Total Protein 7.1 g/dl (6.4-8.2) 03/08/17 06:00 Albumin 2.5 g/dl (3.4-5.0) L 03/08/17 06:00 Radiology Reports: CT head: IMPRESSION: An approximately 4. 4 x 4 x 3.7 cm left frontoparietal dural based mass lesion is identified with associated calvarial erosion as discussed above. 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 A 1 cm nonexpansile nonspecific focus is seen within the right parietal calvarium laterally at the high convexity level. Additional evaluation utilizing whole-body radionuclide bone scan including SPECT may be considered. Alternatively comparison with previous studies may be performed if available from a different facility. Paranasal sinus disease as discussed above. ASSESSMENT/PLAN: 86 year old female with a past medical history of alzheimer's Dementia with psychosis, TIA, ischemic heart disease who [place] with [place]/ unresponsive. CT head completed and was impressive for 4. 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 Patient also admitted for UTI No seizure like activity for this admission. Family chose to defer on further imaging and intervention at this time Keppra continued at 750mg twice daily to provide further seizure protection. On Decadron for now. Reduced to 1mg Q6hrs. 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
[2017-03-19] MEDS: CHOLECALCIFEROL (VITAMIN D3) 1,000 UNIT TABLET (FP) PO SCH (10:39)
[2017-03-19] MEDS: CLOPIDOGREL BISULFATE 75 MG TABLET (FP) PO SCH (10:39)
[2017-03-19] MEDS: MULTIVITAMINS (DAILY MVI) TABLET (FP) PO SCH (10:39)
[2017-03-19] MEDS: QUEtiapine FUMARATE 25 MG TABLET (FP) PO SCH ×2 (10:40→21:51)
[2017-03-19] MEDS: levETIRAcetam 500 MG/5 ML ORAL SOLUTION (UNIT-DOSE CUPS) PO SCH ×2 (10:40→22:53)
[2017-03-19] MEDS: ERTAPENEM SODIUM 1 GM in SODIUM CHLORIDE 100 ML IVPB SCH (10:48)
--- NOTE | 2017-03-19 12:01 | PN ---
Progress Note, Physician Chief Complaint: Unable to obtain today, patient non-verbal - Current Medication List Current Medications: Active Medications Acetaminophen (Tylenol -) 650 mg PO Q6H PRN PRN Reason: PAIN Last Admin: 03/18/17 11:34 Dose: 650 mg Cholecalciferol (Vitamin D3 -) 1,000 unit PO DAILY [facility] Last Admin: 03/19/17 10:39 Dose: 1,000 unit Clopidogrel Bisulfate (Plavix -) 75 mg PO DAILY [facility] Last Admin: 03/19/17 10:39 Dose: 75 mg Dexamethasone Sodium Phosphate (Decadron Injection -) 1 mg IVPUSH Q6H-IV [facility] Docusate Sodium (Colace -) 200 mg PO HS [facility] Last Admin: 03/18/17 22:14 Dose: 200 mg Donepezil HCl (Aricept -) 10 mg PO HS [facility] Last Admin: 03/18/17 22:14 Dose: 10 mg IV Flush (Picc Line Flush) 8 ml IVPUSH PRN PRN PRN Reason: Protocol Ertapenem 1 gm/ Sodium (Chloride) 100 mls @ 200 mls/hr IVPB DAILY [facility] PRN Reason: Protocol Last Admin: 03/19/17 10:48 Dose: 200 mls/hr Levetiracetam (Keppra Oral Solution -) 750 mg PO BID [facility] Last Admin: 03/19/17 10:40 Dose: 750 mg Multivitamins/Minerals/Vitamin C (Tab-A-Vit -) 1 tab PO DAILY [facility] Last Admin: 03/19/17 10:39 Dose: 1 tab Quetiapine Fumarate (Seroquel -) 12.5 mg PO BID [facility] Last Admin: 03/19/17 10:40 Dose: 12.5 mg - Objective Vital Signs: Vital Signs Temperature 36.6 C 03/19/17 06:19 Pulse Rate 54 L 03/19/17 06:19 Respiratory Rate 18 03/19/17 06:19 Blood Pressure 152/70 03/19/17 06:19 O2 Sat by Pulse Oximetry (%) 98 03/16/17 21:00 Constitutional: Yes: Well Nourished, No Distress, Calm Cardiovascular: Yes: Regular Rate and Rhythm. No: Gallop, Murmur, Rub Respiratory: Yes: Regular, CTA Bilaterally. No: Rales, Rhonchi, Wheezes Gastrointestinal: Yes: Normal Bowel Sounds, Soft. No: Distention, Tenderness Extremities: Yes: WNL Edema: No Labs: CBC, BMP 03/19/17 06:00 03/19/17 06:00 INR, PTT INR 1.22 (0.82-1.09) H 03/05/17 20:05 Problem List - Problems (1) Acute metabolic encephalopathy Code(s): G93.41 - METABOLIC ENCEPHALOPATHY (2) Brain mass Code(s): G93.9 - DISORDER OF BRAIN, UNSPECIFIED (3) UTI (urinary tract infection) Code(s): N39.0 - URINARY TRACT INFECTION, SITE NOT SPECIFIED (4) Dementia Code(s): F03.90 - UNSPECIFIED DEMENTIA WITHOUT BEHAVIORAL DISTURBANCE (5) History of seizure Code(s): Z87.898 - PERSONAL HISTORY OF OTHER SPECIFIED CONDITIONS Assessment/Plan (1) Acute metabolic encephalopathy Assessment/Plan: -multifactorial -continue treating UTI -suspect patient is now at baseline Code(s): G93.41 - METABOLIC ENCEPHALOPATHY (2) Brain mass Assessment/Plan: -continue dexamethasone, decreased per neurology -further discussion at [facility] Code(s): G93.9 - DISORDER OF BRAIN, UNSPECIFIED (3) UTI (urinary tract infection) Assessment/Plan: -now growing ESBL e coli -ID following and case discussed -continue ertapenem, day 12 Code(s): N39.0 - URINARY TRACT INFECTION, SITE NOT SPECIFIED (4) Dementia Assessment/Plan: -as above Code(s): F03.90 - UNSPECIFIED DEMENTIA WITHOUT BEHAVIORAL DISTURBANCE (5) History of seizure Assessment/Plan: -continue oral keppra Code(s): Z87.898 - PERSONAL HISTORY OF OTHER SPECIFIED CONDITIONS
--- NOTE | 2017-03-19 13:36 | PN ---
Progress Note, Physician History of Present Illness: stable no new issues - Current Medication List Current Medications: Active Medications Acetaminophen (Tylenol -) 650 mg PO Q6H PRN PRN Reason: PAIN Last Admin: 03/18/17 11:34 Dose: 650 mg Cholecalciferol (Vitamin D3 -) 1,000 unit PO DAILY [facility] Last Admin: 03/19/17 10:39 Dose: 1,000 unit Clopidogrel Bisulfate (Plavix -) 75 mg PO DAILY [facility] Last Admin: 03/19/17 10:39 Dose: 75 mg Dexamethasone Sodium Phosphate (Decadron Injection -) 1 mg IVPUSH Q6H-IV [facility] Docusate Sodium (Colace -) 200 mg PO HS [facility] Last Admin: 03/18/17 22:14 Dose: 200 mg Donepezil HCl (Aricept -) 10 mg PO HS [facility] Last Admin: 03/18/17 22:14 Dose: 10 mg IV Flush (Picc Line Flush) 8 ml IVPUSH PRN PRN PRN Reason: Protocol Ertapenem 1 gm/ Sodium (Chloride) 100 mls @ 200 mls/hr IVPB DAILY [facility] PRN Reason: Protocol Last Admin: 03/19/17 10:48 Dose: 200 mls/hr Levetiracetam (Keppra Oral Solution -) 750 mg PO BID [facility] Last Admin: 03/19/17 10:40 Dose: 750 mg Multivitamins/Minerals/Vitamin C (Tab-A-Vit -) 1 tab PO DAILY [facility] Last Admin: 03/19/17 10:39 Dose: 1 tab Quetiapine Fumarate (Seroquel -) 12.5 mg PO BID [facility] Last Admin: 03/19/17 10:40 Dose: 12.5 mg - Objective Vital Signs: Vital Signs Temperature 98 F 03/19/17 06:19 Pulse Rate 54 L 03/19/17 06:19 Respiratory Rate 18 03/19/17 06:19 Blood Pressure 152/70 03/19/17 06:19 O2 Sat by Pulse Oximetry (%) 98 03/16/17 21:00 Constitutional: Yes: No Distress, Calm Cardiovascular: Yes: Regular Rate and Rhythm Respiratory: Yes: Regular, CTA Bilaterally Gastrointestinal: Yes: Normal Bowel Sounds, Soft Musculoskeletal: Yes: WNL Extremities: Yes: WNL Neurological: Yes: Alert, Other Psychiatric: Yes: Other Labs: CBC, BMP 03/19/17 06:00 03/19/17 06:00 INR, PTT INR 1.22 (0.82-1.09) H 03/05/17 20:05 Assessment/Plan Problem List - Problems (1) Acute metabolic encephalopathy Code(s): G93.41 - METABOLIC ENCEPHALOPATHY (2) Brain mass Code(s): G93.9 - DISORDER OF BRAIN, UNSPECIFIED (3) UTI (urinary tract infection) Code(s): N39.0 - URINARY TRACT INFECTION, SITE NOT SPECIFIED (4) Dementia Code(s): F03.90 - UNSPECIFIED DEMENTIA WITHOUT BEHAVIORAL DISTURBANCE (5) History of seizure Code(s): Z87.898 - PERSONAL HISTORY OF OT plan stable complete abx
[2017-03-19] MEDS: DOCUSATE SODIUM 100 MG CAPSULE (FP) PO SCH (21:51)
[2017-03-19] MEDS: DONEPEZIL HCL 10 MG TABLET (FP) PO SCH (21:51)
[2017-03-20] MEDS: DEXAMETHASONE SOD PHOSPHATE 4 MG/1 ML VIAL IVPUSH SCH ×4 (02:46→21:13)
--- NOTE | 2017-03-20 10:03 | PN ---
Progress Note (short form) - Note Progress Note: Neurology HISTORY OF PRESENT ILLNESS: This is an 86 year old female with a past medical history of alzheimer's Dementia with psychosis, TIA, ischemic heart disease who was sent from the [place] with AMS/unresponsive. CT head completed and was impressive for 4. 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 Patient also admitted for UTI and on Keppra for seizures, 500mg twice daily. No seizure like activity for this admission. Currently on decadron 2mg Q 6hrs. Decrease to 1mg Qhrs. Getting ongoing Anx for UTI. Active Medications Acetaminophen (Tylenol -) 650 mg PO Q6H PRN PRN Reason: PAIN Last Admin: 03/18/17 11:34 Dose: 650 mg Cholecalciferol (Vitamin D3 -) 1,000 unit PO DAILY [facility] Last Admin: 03/19/17 10:39 Dose: 1,000 unit Clopidogrel Bisulfate (Plavix -) 75 mg PO DAILY [facility] Last Admin: 03/19/17 10:39 Dose: 75 mg Dexamethasone Sodium Phosphate (Decadron Injection -) 1 mg IVPUSH Q6H-IV [facility] Last Admin: 03/20/17 02:46 Dose: 1 mg Docusate Sodium (Colace -) 200 mg PO HS [facility] Last Admin: 03/19/17 21:51 Dose: 200 mg Donepezil HCl (Aricept -) 10 mg PO HS [facility] Last Admin: 03/19/17 21:51 Dose: 10 mg IV Flush (Picc Line Flush) 8 ml IVPUSH PRN PRN PRN Reason: Protocol Ertapenem 1 gm/ Sodium (Chloride) 100 mls @ 200 mls/hr IVPB DAILY [facility] PRN Reason: Protocol Last Admin: 03/19/17 10:48 Dose: 200 mls/hr Levetiracetam (Keppra Oral Solution -) 750 mg PO BID [facility] Last Admin: 03/19/17 22:53 Dose: 750 mg Multivitamins/Minerals/Vitamin C (Tab-A-Vit -) 1 tab PO DAILY [facility] Last Admin: 03/19/17 10:39 Dose: 1 tab Quetiapine Fumarate (Seroquel -) 12.5 mg PO BID [facility] Last Admin: 03/19/17 21:51 Dose: 12.5 mg PHYSICAL EXAMINATION Last Vital Signs Temp Pulse Resp BP Pulse Ox 97.6 F 50 L 18 131/50 98 03/20/17 06:00 03/20/17 06:00 03/20/17 06:00 03/20/17 06:00 03/16/17 21:00 GENERAL: Awake, alert, and disoriented, in no acute distress. follows with her eyes HEAD: Normal with no signs of trauma. EYES: Pupils equal, round and reactive to light, extraocular movements intact, sclera anicteric, conjunctiva clear. No lid lag. EARS, NOSE, THROAT: Ears normal, nares patent, oropharynx clear without exudates. Moist mucous membranes. NECK: Normal range of motion, supple without lymphadenopathy, JVD, or masses. LUNGS: Breath sounds equal, clear to auscultation bilaterally. No wheezes, and no crackles. No accessory muscle use. HEART: Regular rate and rhythm, normal S1 and S2 without murmur, rub or gallop. ABDOMEN: Soft, nontender, not distended, normoactive bowel sounds, no guarding, no rebound, no masses. No hepatomegaly or splenomegaly. MUSCULOSKELETAL: Normal range of motion at all joints. No bony deformities or tenderness. No CVA tenderness. UPPER EXTREMITIES: 2+ pulses, warm, well-perfused. No cyanosis. No clubbing. No peripheral edema. LOWER EXTREMITIES: 2+ pulses, warm, well-perfused. No calf tenderness. No peripheral edema. NEUROLOGICAL: Cranial nerves intact, grossly moving ext, not cooperative on confrontation, sensory intact PSYCHIATRIC: Cooperative. Good eye contact. Appropriate mood and affect. SKIN: Warm, dry, normal turgor, no rashes or lesions noted, normal capillary refill. CBCD WBC 7.5 K/mm3 (4.0-10.0) 03/19/17 06:00 RBC 3.91 M/mm3 (3.60-5.2) 03/19/17 06:00 Hgb 12.4 GM/dL (10.7-15.3) 03/19/17 06:00 Hct 39.4 % (32.4-45.2) 03/19/17 06:00 MCV 100.9 fl (80-96) H 03/19/17 06:00 MCHC 31.6 g/dl (32.0-36.0) L 03/19/17 06:00 RDW 13.1 % (11.6-15.6) 03/19/17 06:00 Plt Count 211 K/MM3 (134-434) 03/19/17 06:00 MPV 9.2 fl (7.5-11.1) 03/19/17 06:00 CMP Sodium 143 mmol/L (136-145) 03/19/17 06:00 Potassium 4.6 mmol/L (3.5-5.1) 03/19/17 06:00 Chloride 106 mmol/L (98-107) 03/19/17 06:00 Carbon Dioxide 27 mmol/L (21-32) 03/19/17 06:00 Anion Gap 10 (8-16) 03/19/17 06:00 BUN 21 mg/dL (7-18) H 03/19/17 06:00 Creatinine 0.5 mg/dL (0.55-1.02) L 03/19/17 06:00 Creat Clearance w eGFR > 60 (>60) 03/08/17 06:00 Calcium 8.8 mg/dL (8.5-10.1) 03/19/17 06:00 Total Bilirubin 0.3 mg/dL (0.2-1.0) 03/08/17 06:00 AST 12 U/L (15-37) L 03/08/17 06:00 ALT 10 U/L (12-78) L 03/08/17 06:00 Alkaline Phosphatase 131 U/L (45-117) H 03/08/17 06:00 Total Protein 7.1 g/dl (6.4-8.2) 03/08/17 06:00 Albumin 2.5 g/dl (3.4-5.0) L 03/08/17 06:00 Radiology Reports: CT head: IMPRESSION: An approximately 4. 4 x 4 x 3.7 cm left frontoparietal dural based mass lesion is identified with associated calvarial erosion as discussed above. 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 A 1 cm nonexpansile nonspecific focus is seen within the right parietal calvarium laterally at the high convexity level. Additional evaluation utilizing whole-body radionuclide bone scan including SPECT may be considered. Alternatively comparison with previous studies may be performed if available from a different facility. Paranasal sinus disease as discussed above. ASSESSMENT/PLAN: 86 year old female with a past medical history of alzheimer's Dementia with psychosis, TIA, ischemic heart disease who was sent from the [place] with AMS/ unresponsive. CT head completed and was impressive for 4. 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 Patient also admitted for UTI No seizure like activity for this admission. Family chose to defer on further imaging and intervention at this time Keppra continued at 750mg twice daily to provide further seizure protection. On Decadron for now. Reduced to 1mg Q6hrs. Would like to avoid potential complications from steroids custodial, will consider d/c tomorrow Can continue seroquel and Aricept For transfer back to SNF when medically able
[2017-03-20] MEDS: ERTAPENEM SODIUM 1 GM in SODIUM CHLORIDE 100 ML IVPB SCH (10:32)
--- NOTE | 2017-03-20 10:46 | PN ---
Progress Note, Physician Chief Complaint: Unable to obtain, patient remains non-verbal - Current Medication List Current Medications: Active Medications Acetaminophen (Tylenol -) 650 mg PO Q6H PRN PRN Reason: PAIN Last Admin: 03/18/17 11:34 Dose: 650 mg Cholecalciferol (Vitamin D3 -) 1,000 unit PO DAILY [facility] Last Admin: 03/19/17 10:39 Dose: 1,000 unit Clopidogrel Bisulfate (Plavix -) 75 mg PO DAILY [facility] Last Admin: 03/19/17 10:39 Dose: 75 mg Dexamethasone Sodium Phosphate (Decadron Injection -) 1 mg IVPUSH Q6H-IV [facility] Last Admin: 03/20/17 10:32 Dose: 1 mg Docusate Sodium (Colace -) 200 mg PO HS [facility] Last Admin: 03/19/17 21:51 Dose: 200 mg Donepezil HCl (Aricept -) 10 mg PO HS [facility] Last Admin: 03/19/17 21:51 Dose: 10 mg IV Flush (Picc Line Flush) 8 ml IVPUSH PRN PRN PRN Reason: Protocol Ertapenem 1 gm/ Sodium (Chloride) 100 mls @ 200 mls/hr IVPB DAILY [facility] PRN Reason: Protocol Last Admin: 03/20/17 10:32 Dose: 200 mls/hr Levetiracetam (Keppra Oral Solution -) 750 mg PO BID [facility] Last Admin: 03/19/17 22:53 Dose: 750 mg Multivitamins/Minerals/Vitamin C (Tab-A-Vit -) 1 tab PO DAILY [facility] Last Admin: 03/19/17 10:39 Dose: 1 tab Quetiapine Fumarate (Seroquel -) 12.5 mg PO BID [facility] Last Admin: 03/19/17 21:51 Dose: 12.5 mg - Objective Vital Signs: Vital Signs Temperature 36.4 C 03/20/17 06:00 Pulse Rate 50 L 03/20/17 06:00 Respiratory Rate 18 03/20/17 06:00 Blood Pressure 131/50 03/20/17 06:00 O2 Sat by Pulse Oximetry (%) 98 03/16/17 21:00 Constitutional: Yes: Well Nourished, No Distress, Calm Cardiovascular: Yes: Regular Rate and Rhythm. No: Gallop, Murmur, Rub Respiratory: Yes: Regular, CTA Bilaterally. No: Rales, Rhonchi, Wheezes Gastrointestinal: Yes: Normal Bowel Sounds, Soft. No: Distention, Tenderness Extremities: Yes: WNL Edema: No Labs: CBC, BMP 03/19/17 06:00 03/19/17 06:00 INR, PTT INR 1.22 (0.82-1.09) H 03/05/17 20:05 Problem List - Problems (1) Acute metabolic encephalopathy Code(s): G93.41 - METABOLIC ENCEPHALOPATHY (2) Brain mass Code(s): G93.9 - DISORDER OF BRAIN, UNSPECIFIED (3) UTI (urinary tract infection) Code(s): N39.0 - URINARY TRACT INFECTION, SITE NOT SPECIFIED (4) Dementia Code(s): F03.90 - UNSPECIFIED DEMENTIA WITHOUT BEHAVIORAL DISTURBANCE (5) History of seizure Code(s): Z87.898 - PERSONAL HISTORY OF OTHER SPECIFIED CONDITIONS Assessment/Plan (1) Acute metabolic encephalopathy Assessment/Plan: -resolved, patient at baseline with severe dementia Code(s): G93.41 - METABOLIC ENCEPHALOPATHY (2) Brain mass Assessment/Plan: -continue decadron currently -neurology note reviewed -will d/w neurology about terminal carman oral steroids Code(s): G93.9 - DISORDER OF BRAIN, UNSPECIFIED (3) UTI (urinary tract infection) Assessment/Plan: -continue ertapenem day 13/ Code(s): N39.0 - URINARY TRACT INFECTION, SITE NOT SPECIFIED (4) Dementia Assessment/Plan: -very severe, suspect approaching end stage -multiple conversations with son this hospital stay, no clear GOC established -further discussion per PCP at [facility] Code(s): F03.90 - UNSPECIFIED DEMENTIA WITHOUT BEHAVIORAL DISTURBANCE (5) History of seizure Assessment/Plan: -continue oral keppra Code(s): Z87.898 - PERSONAL HISTORY OF OTHER SPECIFIED CONDITIONS Dispo -plan for discharge tomorrow after ertapenem
[2017-03-20] MEDS ORDERED: PT OWN MED DRAWER 7, Y5N ONE (11:19)
[2017-03-20] MEDS: CHOLECALCIFEROL (VITAMIN D3) 1,000 UNIT TABLET (FP) PO SCH (11:20)
[2017-03-20] MEDS: MULTIVITAMINS (DAILY MVI) TABLET (FP) PO SCH (11:20)
[2017-03-20] MEDS: CLOPIDOGREL BISULFATE 75 MG TABLET (FP) PO SCH (11:21)
[2017-03-20] MEDS: QUEtiapine FUMARATE 25 MG TABLET (FP) PO SCH ×2 (11:21→21:14)
[2017-03-20] MEDS: levETIRAcetam 500 MG/5 ML ORAL SOLUTION (UNIT-DOSE CUPS) PO SCH ×2 (11:21→21:39)
--- NOTE | 2017-03-20 14:35 | PN ---
Progress Note, Physician History of Present Illness: no new issues - Current Medication List Current Medications: Active Medications Acetaminophen (Tylenol -) 650 mg PO Q6H PRN PRN Reason: PAIN Last Admin: 03/18/17 11:34 Dose: 650 mg Cholecalciferol (Vitamin D3 -) 1,000 unit PO DAILY [facility] Last Admin: 03/20/17 11:20 Dose: 1,000 unit Clopidogrel Bisulfate (Plavix -) 75 mg PO DAILY [facility] Last Admin: 03/20/17 11:21 Dose: 75 mg Dexamethasone Sodium Phosphate (Decadron Injection -) 1 mg IVPUSH Q6H-IV [facility] Last Admin: 03/20/17 10:32 Dose: 1 mg Docusate Sodium (Colace -) 200 mg PO HS [facility] Last Admin: 03/19/17 21:51 Dose: 200 mg Donepezil HCl (Aricept -) 10 mg PO HS [facility] Last Admin: 03/19/17 21:51 Dose: 10 mg IV Flush (Picc Line Flush) 8 ml IVPUSH PRN PRN PRN Reason: Protocol Ertapenem 1 gm/ Sodium (Chloride) 100 mls @ 200 mls/hr IVPB DAILY [facility] PRN Reason: Protocol Last Admin: 03/20/17 10:32 Dose: 200 mls/hr Levetiracetam (Keppra Oral Solution -) 750 mg PO BID [facility] Last Admin: 03/20/17 11:21 Dose: 750 mg Multivitamins/Minerals/Vitamin C (Tab-A-Vit -) 1 tab PO DAILY [facility] Last Admin: 03/20/17 11:20 Dose: 1 tab Quetiapine Fumarate (Seroquel -) 12.5 mg PO BID [facility] Last Admin: 03/20/17 11:21 Dose: 12.5 mg - Objective Vital Signs: Vital Signs Temperature 98.1 F 03/20/17 10:00 Pulse Rate 82 03/20/17 10:00 Respiratory Rate 18 03/20/17 10:00 Blood Pressure 118/70 03/20/17 10:00 O2 Sat by Pulse Oximetry (%) 98 03/16/17 21:00 Constitutional: Yes: No Distress, Calm Cardiovascular: Yes: Regular Rate and Rhythm Respiratory: Yes: Regular, CTA Bilaterally Gastrointestinal: Yes: Normal Bowel Sounds, Soft Musculoskeletal: Yes: WNL Extremities: Yes: WNL Neurological: Yes: Other Psychiatric: Yes: Other Labs: CBC, BMP 03/19/17 06:00 03/19/17 06:00 INR, PTT INR 1.22 (0.82-1.09) H 03/05/17 20:05 Assessment/Plan Problem List - Problems (1) Acute metabolic encephalopathy Code(s): G93.41 - METABOLIC ENCEPHALOPATHY (2) Brain mass Code(s): G93.9 - DISORDER OF BRAIN, UNSPECIFIED (3) UTI (urinary tract infection) Code(s): N39.0 - URINARY TRACT INFECTION, SITE NOT SPECIFIED (4) Dementia Code(s): F03.90 - UNSPECIFIED DEMENTIA WITHOUT BEHAVIORAL DISTURBANCE (5) History of seizure Code(s): Z87.898 - PERSONAL HISTORY OF OT plan stable will stop abx after todays dose
[2017-03-20] MEDS: DOCUSATE SODIUM 100 MG CAPSULE (FP) PO SCH (21:14)
[2017-03-20] MEDS: DONEPEZIL HCL 10 MG TABLET (FP) PO SCH (21:14)
[2017-03-21] MEDS: DEXAMETHASONE SOD PHOSPHATE 4 MG/1 ML VIAL IVPUSH SCH ×3 (02:32→14:28)
[2017-03-21] MEDS ORDERED: PT OWN MED DRAWER 7, Y5N ONE (10:20)
[2017-03-21] MEDS: CLOPIDOGREL BISULFATE 75 MG TABLET (FP) PO SCH (10:35)
[2017-03-21] MEDS: CHOLECALCIFEROL (VITAMIN D3) 1,000 UNIT TABLET (FP) PO SCH (10:35)
[2017-03-21] MEDS: QUEtiapine FUMARATE 25 MG TABLET (FP) PO SCH (10:35)
[2017-03-21] MEDS: levETIRAcetam 500 MG/5 ML ORAL SOLUTION (UNIT-DOSE CUPS) PO SCH (10:35)
[2017-03-21] MEDS: MULTIVITAMINS (DAILY MVI) TABLET (FP) PO SCH (10:37)
--- NOTE | 2017-03-21 11:39 | DS ---
Physical Examination Vital Signs: Vital Signs Temperature 36.8 C 03/21/17 10:00 Pulse Rate 61 03/21/17 10:00 Respiratory Rate 18 03/21/17 10:00 Blood Pressure 156/72 03/21/17 10:00 O2 Sat by Pulse Oximetry (%) 100 03/20/17 21:00 Constitutional: Yes: No Distress, Calm Cardiovascular: Yes: Regular Rate and Rhythm. No: Gallop, Murmur, Rub Respiratory: Yes: Regular, CTA Bilaterally. No: Rales, Rhonchi, Wheezes Gastrointestinal: Yes: Normal Bowel Sounds, Soft. No: Distention, Tenderness Extremities: Yes: WNL Edema: No Labs: CBC, BMP 03/19/17 06:00 03/19/17 06:00 Discharge Summary Reason For Visit: URINARY TRACT INFECTION,MASS OF BRAIN Current Active Problems Acute metabolic encephalopathy (Acute) Brain mass (Acute) Dementia (Acute) History of seizure (Acute) UTI (urinary tract infection) (Acute) Hospital Course: (1) Acute metabolic encephalopathy Code(s): G93.41 - METABOLIC ENCEPHALOPATHY (2) Brain mass Code(s): G93.9 - DISORDER OF BRAIN, UNSPECIFIED (3) UTI (urinary tract infection) Code(s): N39.0 - URINARY TRACT INFECTION, SITE NOT SPECIFIED (4) Dementia Code(s): F03.90 - UNSPECIFIED DEMENTIA WITHOUT BEHAVIORAL DISTURBANCE (5) History of seizure Code(s): Z87.898 - PERSONAL HISTORY OF OTHER SPECIFIED CONDITIONS Ms Baker is an 86 year old female who presented with AMS and was found to have both a UTI and a previously undiagnosed brain mass. This was incidentally found on head CT for AMS. She was admitted to the hospital and seen by neurology. Discussion about further work up of brain mass occurred, considering patient having severe dementia with steady decline per son. Code status/goals of care/ end of life issues were also discussed by currently son prefers to consider options further. She was also found to have a UTI and was originally treated with rocephin, however it was ESBL and ID was consulted and she was placed on merrem. She finished a full course of merrem here. Neurology originally started patient on steroids and these were tapered off. She was continued on her home regimen for dementia. She is currently stable for discharge back to SNF. 33 minutes spent in preparation of this discharge Condition: Stable - Instructions Diet, Activity, Other Instructions: dysphagia puree diet. Activity per PT at SNF. Referrals: Jim Albright [Outside] Raymond River MD [Staff Physician] - Disposition: [facility] - Home Medications Comprehensive Discharge Medication List: Ambulatory Orders Aa/Hydrolyzed Collagen, Whey [Lps Neutral Flavor Liquid] 30 ml TP TID 03/05/17 Acetaminophen [Tylenol] 650 mg PO QID PRN 03/05/17 Cholecalciferol (Vitamin D3) [Vitamin D3] 1,000 units PO DAILY 03/05/17 Clopidogrel Bisulfate [Plavix] 75 mg PO DAILY 03/05/17 Docusate Sodium [Colace] 200 mg PO HS 03/05/17 Donepezil HCl [Aricept] 10 mg PO HS 03/05/17 Menthol/Zinc Oxide [Calmoseptine Ointment Packet] 1 pack TP TID PRN 03/05/17 Multivitamins [Multivit ([facility] Formulary)] 1 tab PO DAILY 03/05/17 Quetiapine Fumarate [Seroquel -] 12.5 mg PO BID 03/05/17 Levetiracetam [Keppra Oral Solution -] 750 mg PO BID cup 03/21/17
--- NOTE | 2017-03-21 12:00 | PN ---
Progress Note, Physician History of Present Illness: stable \no events calm doing well - Current Medication List Current Medications: Active Medications Acetaminophen (Tylenol -) 650 mg PO Q6H PRN PRN Reason: PAIN Last Admin: 03/18/17 11:34 Dose: 650 mg Cholecalciferol (Vitamin D3 -) 1,000 unit PO DAILY [facility] Last Admin: 03/21/17 10:35 Dose: 1,000 unit Clopidogrel Bisulfate (Plavix -) 75 mg PO DAILY [facility] Last Admin: 03/21/17 10:35 Dose: 75 mg Dexamethasone Sodium Phosphate (Decadron Injection -) 1 mg IVPUSH Q6H-IV [facility] Last Admin: 03/21/17 10:34 Dose: 1 mg Docusate Sodium (Colace -) 200 mg PO HS [facility] Last Admin: 03/20/17 21:14 Dose: 200 mg Donepezil HCl (Aricept -) 10 mg PO HS [facility] Last Admin: 03/20/17 21:14 Dose: 10 mg IV Flush (Picc Line Flush) 8 ml IVPUSH PRN PRN PRN Reason: Protocol Levetiracetam (Keppra Oral Solution -) 750 mg PO BID [facility] Last Admin: 03/21/17 10:35 Dose: 750 mg Multivitamins/Minerals/Vitamin C (Tab-A-Vit -) 1 tab PO DAILY [facility] Last Admin: 03/21/17 10:37 Dose: 1 tab Quetiapine Fumarate (Seroquel -) 12.5 mg PO BID [facility] Last Admin: 03/21/17 10:35 Dose: 12.5 mg - Objective Vital Signs: Vital Signs Temperature 98.2 F 03/21/17 10:00 Pulse Rate 61 03/21/17 10:00 Respiratory Rate 18 03/21/17 10:00 Blood Pressure 156/72 03/21/17 10:00 O2 Sat by Pulse Oximetry (%) 100 03/20/17 21:00 Constitutional: Yes: No Distress, Calm Cardiovascular: Yes: Regular Rate and Rhythm Respiratory: Yes: Regular, CTA Bilaterally Gastrointestinal: Yes: Normal Bowel Sounds, Soft Musculoskeletal: Yes: WNL Extremities: Yes: WNL Neurological: Yes: Other (non verbal) Psychiatric: Yes: Other Labs: CBC, BMP 03/19/17 06:00 03/19/17 06:00 INR, PTT INR 1.22 (0.82-1.09) H 03/05/17 20:05 Assessment/Plan Problem List - Problems (1) Acute metabolic encephalopathy Code(s): G93.41 - METABOLIC ENCEPHALOPATHY (2) Brain mass Code(s): G93.9 - DISORDER OF BRAIN, UNSPECIFIED (3) UTI (urinary tract infection) Code(s): N39.0 - URINARY TRACT INFECTION, SITE NOT SPECIFIED (4) Dementia Code(s): F03.90 - UNSPECIFIED DEMENTIA WITHOUT BEHAVIORAL DISTURBANCE (5) History of seizure Code(s): Z87.898 - PERSONAL HISTORY OF OT plan stable completed course continue rest as per primary patient doing well
[2017-03-21 15:43] VITALS: BP 109/42; PULSE 59; TEMP 97.4
== END 2017-03-21 14:51 | DRG 70 ==
LOC: JER 18:10 → JERBED 23:00 → J8W 03-06 03:21 → J5S 03-20 15:04
PROVIDERS: ADMIT Internal Medicine; ATTEND Internal Medicine
DX: G93.9 Disorder of brain, unspecified (principal); G93.41 Metabolic encephalopathy; N39.0 Urinary tract infection, site not specified; F02.81 Dementia in other diseases classified elsewhere, unspecified severity, with behavioral disturbance; E46 Unspecified protein-calorie malnutrition; Z68.22 Body mass index [BMI] 22.0-22.9, adult; G40.89 Other seizures; B96.20 Unspecified Escherichia coli [E. coli] as the cause of diseases classified elsewhere; G30.9 Alzheimer's disease, unspecified; I25.9 Chronic ischemic heart disease, unspecified; Z86.73 Personal history of transient ischemic attack (TIA), and cerebral infarction without residual deficits; I25.10 Atherosclerotic heart disease of native coronary artery without angina pectoris
CPT/HCPCS: 36415; 70450-TC; 71045-TC; 80048; 80053; 81003; 81015; 82550; 83735; 84100; 84484; 85025; 85610; 87086; 87186; 93005; 93010; 99284-25; J1644